=== PATIENT | female | born 1930 | race Caucasian/White ===

== ENCOUNTER 2017-04-11 13:01 | Inpatient (IN) | payer MEDICARE ==
[~2017-04-11] VITALS: Ht 157.5 cm; Wt 63.1 kg
[2017-04-11 14:26] VITALS: BP 93/49; RESP 20
--- NOTE | 2017-04-11 14:44 | NUR ---
direct admit pt admitted from [facility]. pt fell this am due to her muscles "giving out". pt arrived [facility] and transferred self to bedside commode. pt arrived soiled with BM, cleaned by transporters and hospital ELDERLY SITTER. Tele started, waiting on doctors orders. ELDERLY SITTER getting vitals currently. Addendum: 04/11/17 at 1502 by YADIRA AGUILAR RN stool has the distinct odor of C-diff and pt is currently having very dark, loose/watery stool. Sample saved to send to lab
[2017-04-11] MEDS ORDERED: FELO10TA3 PO (15:26)
[2017-04-11] MEDS ORDERED: LISI-567 PO (15:26)
[2017-04-11] MEDS ORDERED: HYDR12.5 PO (15:27)
[2017-04-11] MEDS ORDERED: GABA-500 PO (15:28)
[2017-04-11] MEDS ORDERED: ASPI-973 PO (15:29)
[2017-04-11] MEDS ORDERED: CHOL200047 PO (15:30)
[2017-04-11] MEDS ORDERED: LACT1TAB19 PO (15:31)
[2017-04-11] MEDS ORDERED: PSYL0.4C2 PO (15:31)
[2017-04-11] MEDS ORDERED: FERR159T2 PO (15:32)
[2017-04-11] MEDS ORDERED: ASCO-294 PO (15:33)
[2017-04-11] MEDS ORDERED: FOLI1TAB50 PO (15:34)
[2017-04-11 15:35] VITALS: PULSE 93
[2017-04-11 17:39] VITALS: BP 113/64; PULSE 111; RESP 20; O2SAT 96
--- NOTE | 2017-04-11 17:57 | NUR ---
allergy list pt is not certain what she is allergic to. Daughter in-law is going to go home and check the list, then she plans on calling [facility] back.
[2017-04-11] MEDS ORDERED: Polyethylene Glycol (PEG) 17 Gm Powder PO PRN (18:45)
[2017-04-11] MEDS ORDERED: Alum-Mag Hydrox-Simeth 30 mL Suspension PO PRN (18:45)
[2017-04-11] MEDS ORDERED: Ondansetron 2 mg/mL 2 mL Inj IVPUSH PRN (18:45)
--- NOTE | 2017-04-11 19:38 | DRSVH ---
PROCEDURE: US RENAL SONOGRAM INDICATIONS: juan carlos TECHNIQUE: Real-time scanning was performed of the kidneys and bladder, with image documentation. COMPARISON: None. FINDINGS: Kidneys: Kidneys demonstrate cortical thinning. Right kidney measures 16.3 cm long; left kidney celia sures 13.8 cm long. Right renal cortical thickness is 0.7 cm; left renal cortical thickness is 1.1 c m. Renal cortical echotexture is normal. No hydronephrosis or nephrolithiasis. No suspicious solid mass lesions. Multiple bilateral large right renal cysts, some which demonstrate internal septation s. Bladder: Pre-void bladder volume is 774 mL. Post-void residual is 400 mL. Pre-void images demonstr ate no focal intraluminal masses or stones. There is bladder debris On pre-void images, neither of t he ureteral jets are noted with color Doppler interrogation. (Of note, ureteral jets may not be dete ctable in up to 25% of cases due to insufficient differences in specific gravity between ureteral and bladder urine). Miscellaneous: No free pelvic fluid. IMPRESSION: Multiple mildly complex right renal cysts, some of which demonstrate internal septations. Recommend c ontinued surveillance with renal ultrasound or CT. Given the absence of any relevant prior comparison studies, consider initial workup with CT (in the non-emergent setting). Large postvoid residual. Internal bladder echoes, presumably intraluminal debris. Renal cortical thinning/atrophy Dictated by: Lamin Stack M.D. on 04/11/2017 at 19:32 Approved by: Lamin Stack M.D. on 04/11/2017 at 19:37
[2017-04-11 20:10] VITALS: BP 105/53; PULSE 116; RESP 22; O2SAT 95
[2017-04-11] MEDS: Dextrose 5% 0.9% NaCl 1,000 ML IV SCH (22:05)
[2017-04-11 22:22] VITALS: BP 148/64; PULSE 140; RESP 26
--- NOTE | 2017-04-11 23:08 | NUR ---
Fever/Transfer note Pt developed high fever 39.3, RR26, TELE Sinus tachy HR140. Pt appears chills, flushed face, lung sounds clear, a few wheezes. HR regular, no murmur. Abdomen distended, tympanic,soft, nontender, BT active. Pt had small dark greenish loose stool this pm, GI PCR sent. Trace edema at bilateral LEs. Pt has not voided, bladder scan at 2240 999ml. No lab result and no MD note in the computer. Dr. Pittman paged at [id number], and notified pt above condition. Transfer pt to [facility] per Dr. Pittman order. Report given to receiving KENDRA Thomson Receiving RN notified Pt is on contact enteric precaution to r/o C-diff. There was no information of allergy available this evening until family went home to find out. Tylenol given after allergy information received from family. Addendum: 04/11/17 at 2340 by BRIGITTE MENA RN Pt left [facility] at 2300 and taken down to [facility] by charge nurse Danae Rucker and [place].
[2017-04-11 23:17] LABS: Mean Corpuscular Hemoglobin 27.6 pg (27.0-35.0); Mean Corpuscular Volume 82.9 fL (81-100); Platelet Count 429 bil/L (150-400)
[2017-04-11 23:18] LABS: BASOPHILS % (AUTO) 0.4 % (0-3); EOSINOPHILS % (AUTO) 0.2 % (0-5); MONOCYTES % (AUTO) 3.1 % (4-12); NEUTROPHILS % (AUTO) 91.4 % (40-74)
[2017-04-11 23:20] VITALS: BP 89/41; PULSE 111; RESP 22; O2SAT 93
[2017-04-11] MEDS ORDERED: Piper-Tazo 3.375 Gm/50 mL D5W Minibag Plus - Q8H over 4 hrs IV ONE ×2 (23:45)
[2017-04-11 23:59] LABS: APPEARANCE,URINE TURBID (CLEAR,HAZY); COLOR,URINE YELLOW (YELLOW); OCCULT BLOOD,URINE LARGE (NEGATIVE); PH,URINE 6.5 (5.0-8.0); UROBILINOGEN,URINE NORMAL (NORMAL)
[2017-04-12] VITALS (11 sets, daily range): BP systolic 88–118; BP diastolic 33–80; PULSE 73–116; RESP 16–20; O2SAT 88–92
[2017-04-12] MEDS ORDERED: Piperacillin-Tazo 3.375 Gm Inj 3.375 GM in Dextrose 5% Minibag Plus 50 ML IV SCH (00:30)
--- NOTE | 2017-04-12 01:01 | HP ---
[address] [address] HISTORY AND PHYSICAL PATIENT: LAURA SANABRIA : 1930 MR#: [id number] ADMIT: 04/11/2017 JOB ID: [id number] PRIMARY CARE PROVIDER: Polo Vallecillo MD, [facility] in [place]. CHIEF COMPLAINT: Fell down. HISTORY OF PRESENT ILLNESS: This is an 86-year-old female, who says s he has been feeling okay. Lives by herself in an apartment. 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 Was brought to the ED. The wounds were , but when they did lab work, they noted she had a BUN of 110 and a creatinine of 8.4, sodium of 129 and potassium 6. The ED doctor told me that her creatinine was normal in November, but family, who I was unable to interview today because they are gone, told Dr. White that she has a history of chronic renal failure. She is on lisinopril, and she did start with diarrhea today. The patient says she had no urine output today but she did have urine output yesterday. She has had no urinary tract infections, fever, pain, any other trauma. No chest pain, cough, productive sputum. REVIEW OF SYSTEMS: Complete review of systems obtained. All pertinent positives in HPI above. Rest of review of systems are negative. PAST MEDICAL HISTORY: 1. Hypertension. 2. Ischemic colitis. 3. Fractured femur in the past. 4. Breast cancer. Treated in the past. 5. Diverticulosis. 6. Cholecystectomy. MEDICINES: 1. Amlodipine 10 daily. 2. Lisinopril 20 daily. 3. HCTZ 25 daily. 4. Aspirin 81 daily. 5. Gabapentin. SOCIAL HISTORY: The patient lives alone in her own apartment. She has never smoked. Occasional alcohol. Allergy information is not available. Family is bringing that in. FAMILY HISTORY: The patient does not know what her parents from. PHYSICAL EXAMINATION: Blood pressure 113/64, heart rate 111, afebrile, O2 sat is 96% on room air. Skin is warm and dry. Eyes: PERRLA. EOMs intact. Mouth shows slightly poor hydration. No JVD. Lungs: A few crackles. Cardiac exam has a questionable systolic murmur. Abdomen is soft, nonacute, benign. Extremities showed no significant edema. Cranial nerves 2-12 are intact. No gross motor or sensory defects noted. ANALYSIS AND PLAN: 1. Acute renal failure present on admission. Active. Etiology is unclear. Dehydration. Possibly related to the diarrhea is a possibility. At this time, Dr. White has seen the patient in consultation. Ultrasound ordered. UA ordered. Kayexalate given this morning. Renal ultrasound ordered. We are going to hydrate the patient overnight, hold her meds and re-evaluate in the morning. 2. Hypertension. The patient's blood pressure is low. We will be holding her felodipine and lisinopril, hydrochlorothiazide and aspirin. 3. Diarrhea. PCR study. No antidiarrheals until C. diff ruled out. Isolation. 4. Code status: FULL CODE. 5. Disposition: The patient's primary care provider is Dr. Vallecillo, [facility]. She lives alone in an apartment.
--- NOTE | 2017-04-12 01:09 | CONS ---
[address] [address] CONSULTATION REPORT PATIENT: LAURA SANABRIA : 1930 MR#: [id number] ADMIT: 04/11/2017 JOB ID: [id number] CORRECTED REPORT: RENAL CONSULTATION: DATE OF SERVICE: 04/11/2017 HISTORY: The patient is a very pleasant, 86-year-old, white female, who was transferred from [facility] for acute kidney injury and hyperkalemia. Renal consultation is being sought for further evaluation of her renal problem. Much of the history has been obtained from the patient and from her family members. Apparently, there is some history of some type of chronic kidney disease. However, she has not seen a publication distributor in the past. I was told by the consulting physicians that her renal function is normally considerably better than it is today. She apparently has a history of some frequent urinary tract infections and, from what her daughter said, gets 2-3 of those per year. There is no history of any prior hematuria, proteinuria, renal lithiasis, diabetes, frequent use of nonsteroidal anti-inflammatories or any [id number] or herbal medications. She states that approximately 1/2 to 2 weeks ago she had a DTaP immunization. Following that, she states that she has been feeling quite poorly with progressive weakness, nausea, vomiting, general malaise, and marked decrease in her oral intake. She has not had any recent antibiotics, nor has she taken any other medicines other than her normal prescribed medications. She denies any fever, chills, nasal congestion, cough, wheezing, new arthralgias or myalgias, difficulty with urination, or hematuria. She denies any skin rashes. She does state that today she had a fairly abrupt onset of multiple loose stools. She does have a history of diverticular disease but denies any abdominal pain today. PAST MEDICAL HISTORY: Is significant for hypertension, which is currently fairly well controlled, breast cancer, which was treated by a lumpectomy and follow up radiation about five years ago, hyperlipidemia, and diverticular disease. She denies a history of any prior stroke, seizure, asthma, emphysema, tuberculosis, myocardial infarction, congestive heart failure, rheumatic fever, other malignancies, or thyroid illness. PAST SURGICAL HISTORY: Is significant for hysterectomy, intertrochanteric fracture of the right hip, pelvic fracture, and a cholecystectomy. ALLERGIES: She is not allergic to any food or any medication. SOCIAL HISTORY: She has a remote history of tobacco use, and drinks a glass a wine occasionally. She is normally quite active in her numerous activities of daily living which she normally performs without significant problems or restriction. REVIEW OF SYSTEMS: Is detailed above. Otherwise she denies any headache, visual changes, chest pain or shortness of breath. PHYSICAL EXAMINATION: Revealed a pale, well-developed, 86-year-old, white female, who was alert and oriented x3, in no distress at time of my evaluation. Her heart rate was 86. Blood pressure was 100/58. HEENT examination is remarkable for pale sclerae, mild bitemporal wasting, and dry mucous membranes. Sclerae and cornea, along with the pupils and extraocular muscles were within normal limits. Neck is supple without adenopathy, thyromegaly or jugular venous distention. Lungs were clear to auscultation. Heart is regular and rhythmical with a soft systolic murmur. Abdomen is soft and distended. There were diminished bowel sounds noted. There was diffuse tympany throughout her abdomen. There was no tenderness, rebound, guarding, masses or hepatosplenomegaly. Extremities did not show any evidence of any clubbing, cyanosis, or edema. Half and half nails were noted. Skin turgor was diminished and there is no evidence of any rashes. Neurological exam was remarkable for resting and intention tremor, which is chronic, and asterixis. LABORATORY DATA: There is no followup lab since her lab earlier today. IMPRESSION: 1. Dehydration. 2. Acute kidney injury secondary to this. 3. Hyperkalemia. 4. Metabolic acidosis. 5. Hypertension with hypertensive heart disease and hypertensive nephrosclerosis. 6. Abdominal distention. RECOMMENDATION: I would like to get a renal ultrasound on her. I would also like to consider getting a abdominal CT scan with oral contrast only. I would also like to get a stool for C. difficile toxin, and I would like to start her on D5 normal saline at 100 mL/h. I also would like to review her old records from her family physician to have an idea of what her baseline creatinine is. Once again, I would like to thank you for allowing me to participate in the care of this most pleasant interesting patient. I will be following her closely with you. Corrected by GS 04/23/17 at 1:06pm DOS.
[2017-04-12] MEDS: Vancomycin 125 mg Oral Capsule PO SCH ×4 (01:25→17:53)
[2017-04-12 03:08] LABS: BASOPHILS % (AUTO) 0.3 % (0-3); EOSINOPHILS % (AUTO) 0.1 % (0-5); MONOCYTES % (AUTO) 4.8 % (4-12); Mean Corpuscular Hemoglobin 27.5 pg (27.0-35.0); Mean Corpuscular Volume 83.4 fL (81-100); NEUTROPHILS % (AUTO) 91.5 % (40-74); Platelet Count 382 bil/L (150-400)
[2017-04-12 03:32] LABS: Unsaturated Iron Binding 116.9 ug/dL
--- NOTE | 2017-04-12 06:19 | NUR ---
NOC Received pt from [facility] around 2300. PT febrile at the time, HR tachy. ON 2.5L NC. Hypotensive. PT was difficult to arouse and confused when attempting to review info with the pt. Carlisle placed for bladder scan <999. Urine was milky with a green tint to it. UA positive. PT received a 500ml NS bolus. Pressures are now in upper 90's to low 100 systolic. Temp resolved. Lungs are diminished t/o as pt does not follow commands to take deep breaths. PT had 1 BM that was dark green and liquid. THere was stool inside of her vagina, but does not appear to be a fistula. Pt reports that she has a pessory in place. This RN did not remove. Hopefully when pt is more alert today she will be able to remove on her own. There is a bruise on her L elbow from reported fall about a week ago per pt. Stool sample sent for PCR. Pt currently on contact precautions. Labs a little improved today aside from creatinine and bum which are both critically high. Nephrology is consulting. Will CTM,
[2017-04-12] MEDS: Dextrose 5% 0.9% NaCl 1,000 ML IV SCH (09:10)
--- NOTE | 2017-04-12 11:29 | PCM.PNNEPH ---
Subjective Date of Service April 12, 2017 Subjective Patient states that she feels a bit better but continues to have diarrhea. Her appetite is good and she denies any headache, chest pain, or shortness of breath. She does have some rare nausea but no vomiting. Intake and output have not been well Yesterday. Her systolic blood pressures have ranged between 90-1/2 in the low 110s. This morning her hemoglobin is 9.8, sodium 133, potassium 4.6, chloride of 96, bicarbonate 15, BUN and creatinine were 107 and 8.7 respectively. Her uric acid level is 11.7 with a calcium of 7.2. Patient is 13% and pneumonia is 65. Albumin level was 2.3. Toxin assay was positive for C. difficile toxin. Her renal ultrasound was reviewed and she has some moderate asymmetry of her kidneys with the right kidney being 16.3 cm and the left kidney being 13.8. There were multiple simple cysts noted and thinning of the cortex was also noted. There were no masses or obstruction noted however she did have considerable debris in her bladder and an increased postvoid residual was noted. Exam Vital Signs Vital Sign - Last Date Time Temp Pulse Resp B/P Pulse Ox O2 Delivery O2 Flow Rate FiO2 04/12/17 09:49 73 04/12/17 09:18 36.8 18 92/40 92 Nasal Cannula 2.00 Intake and Output 04/11/17 04/11/17 04/12/17 Cumulative From/Thru 15:00 23:00 07:00 04/11/17 17:35 - 04/12/17 06:19 Intake Total 1053 ml 1053 ml Output Total 750 ml 750 ml Balance 303 ml 303 ml Intake Oral 200 ml 200 ml IV Total 853 ml 853 ml Output Urine Total 750 ml 750 ml # Bowel Movements 3 3 Exam HEENT examination is remarkable once again for pale sclera, bitemporal wasting, and some dry mucous membranes. Neck is supple without adenopathy, thyromegaly, or jugular venous distention. Throat clear to auscultation. Heart is regular and rhythmical with a soft systolic murmur. Abdomen is soft with diminished bowel sounds and once again diffuse tympany is noted. There is some mild nonfocal tenderness mainly in the epigastric and left upper quadrant area. This was nonradiating and there was no guarding or rebound noted. There was no evidence of any hepatosplenomegaly noted. Extremities did not show any evidence of any clubbing, cyanosis, or edema.Moshe and Half nails were noted and skin turgor is diminished. There were no rashes noted. Lab and Diagnostics Result Diagram: 04/12/1725404/12/17254 Plan Impression Impression #1 acute kidney injury secondary to dehydration from C. difficile colitis #2 dehydration #3 anion gap and non-anion gap metabolic acidosis #3 abdominal distention number for hyperuricemia #5 for tension with hypertensive heart disease and hypertensive nephrosclerosis. Recommendations #1 I would like to change her maintenance IV to D5 and half- normal saline with 1 amp of sodium bicarbonate 21 at 125 mL . Slight discharge her on allopurinol 100 mg all once a day and I would strongly recommend getting a CT scan of her abdomen. This can be done with oral contrast only and IV contrast would not be needed. Papo White DO April 12, 2017 11:29
[2017-04-12] MEDS ORDERED: Lactulose 10 Gm/15 mL 473 mL Solution PO SCH (11:45)
--- NOTE | 2017-04-12 11:45 | PCM.PNMED ---
Subjective Date of Service April 12, 2017 Subjective Caitie Monet is an 86 year old woman with past medical history significant for hypertension, breast cancer in remission, hyperlipidemia, and diverticular disease who presented to [facility] from [facility] due to hyperkalemia and acute kidney injury. The patient is currently under treatment for C. Difficile colitis, acute kidney injury and a UTI as well as possible hepatic encephalopathy. Hospital day #2 Overnight: The patient had an elevated temperature, episode of hypotension that was fluid responsive, and had a significant amount of urinary retention that was treated with catheterization. Patient had 3 recorded bowel movements overnight. Today: The patient is forgetful and repeats questions during interview. She denies any abdominal pain, nausea, vomiting, further bowel movements. Denies any bowel movement this morning. The remainder review of systems is negative except as noted above. Exam Vital Signs Vital Sign - Last Date Time Temp Pulse Resp B/P Pulse Ox O2 Delivery O2 Flow Rate FiO2 04/12/17 09:49 73 04/12/17 09:18 36.8 18 92/40 92 Nasal Cannula 2.00 Intake and Output 04/11/17 04/11/17 04/12/17 Cumulative From/Thru 15:00 23:00 07:00 04/11/17 17:35 - 04/12/17 06:19 Intake Total 1053 ml 1053 ml Output Total 750 ml 750 ml Balance 303 ml 303 ml Intake Oral 200 ml 200 ml IV Total 853 ml 853 ml Output Urine Total 750 ml 750 ml # Bowel Movements 3 3 Exam General: No acute distress, thin elderly female sitting up in hospital. Forgetful and seems confused. HEENT: Normocephalic, atraumatic. External ears without defect. Pupils equal, round, and reactive to light and accommodation. Anicteric sclerae, moist conjunctivae, and no lid lag. Oropharynx free of erythema and cobble stoning with moist mucosa. Neck: Supple with full range of motion. No jugular venous distension. No lymphadenopathy or thyromegaly. Cardiovascular: Regular rate and rhythm with soft systolic murmur. Pulmonary: Clear to auscultation bilaterally with no crackles, wheezes, or rhonchi. Normal respiratory effort with no use of accessory muscles. Abdomen: Soft, mildly distended. No hepatosplenomegaly or masses appreciated. No tenderness to palpation. Hypoactive bowel sounds Extremities: No clubbing, cyanosis, edema, or lymphadenopathy appreciated. Half -and-half nails noted. Skin: Normal temperature, turgor, and texture; no rash, ulcers, or subcutaneous nodules appreciated. Neurological: Cranial nerves grossly intact. Normal muscle strength, tone, and bulk. Asterixis noted. Psychiatric: Normal mood and affect. Alert and oriented to person, place, and time. IVs and Medications Medications Reviewed: Medications were reviewed in detail Lab and Diagnostics Result Diagram: 04/12/17 0255 04/12/17254 X-Rays, CTs and MRIs US RENAL SONOGRAM IMPRESSION: Multiple mildly complex right renal cysts, some of which demonstrate internal septations. Recommend continued surveillance with renal ultrasound or CT. Given the absence of any relevant prior comparison studies, consider initial workup with CT (in the non-emergent setting). Large postvoid residual. Internal bladder echoes, presumably intraluminal debris. Renal cortical thinning/atrophy Dictated by: Lamin Stack M.D. on 04/11/2017 at 19:32 Assessment & Plan Caitie Monet is an 86 year old woman with past medical history significant for hypertension, breast cancer in remission, hyperlipidemia, and diverticular disease who presented to [facility] from [facility] due to hyperkalemia and acute kidney injury. The patient is currently under treatment for C. Difficile colitis, acute kidney injury and a UTI as well as possible hepatic encephalopathy. Hospital day #2 1. Acute injury kidney injury secondary to dehydration secondary to C. difficile colitis, present on admission, active -Based on the patient's renal ultrasound she does seem to have some underlying CKD however does not appear that her current renal function is at baseline -Nephrology consulted, appreciate recommendations and expertise. We will follow. -Continue D5 normal saline at 100 mL per hour as per nephrology. 2. C. difficile colitis, present on admission, active. -Patient was initiated on by mouth vancomycin by the leather goods ii assembler. We will continue. -This patient poses a curious conundrum as routinely the goal of bowel movements would be less than 6 to state that the patient's C. difficile colitis is under control. However, this patient also appears to be in hepatic encephalopathy and thus we must maintain her bowel movements to at least 3 per day with end goal of improved mentation. Our goal will be 3-4 bowel movements per day. -Consider gastric urology consultation if patient does not improve. Especially the setting of her asterixis and hepatic encephalopathy. 3. Urinary tract infection, present on admission, active -Patient noted to have a very dirty urine and has bladder retention as well -May be due to cross-contamination from diarrhea with stasis -Started on Zosyn by the leather goods ii assembler, will continue and deescalate as cultures return. 4. 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 He did not have any imaging of the abdomen or the liver is available. -Ammonia is elevated this morning and she does appear encephalopathic -We will obtain CT of abdomen and pelvis with by mouth contrast. -We will initiate low-dose lactulose -We will continue to monitor mentation 5. Normocytic normochromic anemia, present on admission, stable -Likely secondary to chronic kidney disease -Continue to monitor. Will defer to nephrology regarding further intervention. 6. Hyperkalemia, present on admission, resolved. 7. Hypertension, chronic -Hold blood pressure medications at this time Disposition: The patient will likely be in the hospital for 2-3 more days as she is evaluated and treated for the above problems. VTE Mechanical Devices: Venous Foot Pump Resuscitation Status: CPR: Attempt Resuscitation Time spent 35 min Attending Statement Patient was seen and examined by me today. I confirmed pertinent physical exam findings and agree with physical exam as documented by resident. I agree with overall assessment and plan of care as documented. Labs, radiology tests reviewed. Plan of care, medication side effects, home medication, diagnostic procedures and available alternatives were discussed and reviewed with the patient. All questions answered. Patient verbalized understanding, approved and agreed to plan of care. Carmelina Lazcano DO April 12, 2017 11:05 Angel Posada MD April 12, 2017 17:37
--- NOTE | 2017-04-12 13:40 | DRSVH ---
PROCEDURE: CT ABDOMEN AND PELVIS WITHOUT CONTRAST ([id number]) INDICATIONS: ?cirrhosis, c diff. TECHNIQUE: After the administration of oral contrast, 5 mm thick sections acquired from the diaphragms to the sy mphysis. 5 mm coronal and sagittal reformats were performed. For radiation dose reduction, the foll owing was used: automated exposure control, adjustment of mA and/or kV according to patient size. COMPARISON: [facility], US, US RENAL, 04/11/2017, 18:08. FINDINGS: Image quality: There is metallic streak artifact limiting evaluation. ABDOMEN: Lung bases: There are small bilateral pleural effusions with consolidation in the lower lobes, left g reater than right. Heart size is normal. There is prominent coronary arterial vascular calcificatio n. There is an and understands the order of her LEI and is T. he is a A small hiatal hernia is prese nt. There is mild concentric wall thickening within the visualized distal esophagus. Solid organs: There is a small cyst within the inferior right hepatic lobe measuring 8 mm. The splee n is normal in size. Gallbladder appears surgically absent. The pancreas is mildly atrophic in size without pancreatic duct dilatation or discrete lesions. No adrenal nodules. There is severe dilatation of the right renal collecting system with a transition at the ureteropelvi c junction. The right ureter is normal in caliber. Left kidney demonstrates no hydronephrosis. The re is nonspecific perinephric stranding demonstrated bilaterally. Peritoneum and bowel: Small bowel loops demonstrate normal wall thickness and caliber. There is colo kei diverticulosis without acute diverticulitis. Mild segmental wall thickening is demonstrated in t he sigmoid colon suggesting a mild nonspecific colitis. No free fluid or air. Nodes and vessels: No retroperitoneal or mesenteric adenopathy by size criteria. Aorta and inferior vena cava are normal in size. Miscellaneous: No ventral hernias. PELVIS: Genitourinary: There is a Altamirano catheter within a decompressed urinary bladder. There is suggestion of concentric bladder wall thickening. Miscellaneous: No inguinal hernias or adenopathy. Bones: No suspicious bony lesions. There is osteopenia. No vertebral body compression fractures. IMPRESSION: 1. Severe right hydronephrosis without hydroureter suggesting a UPJ obstruction. No radiopaque ston es identified. 2. Concentric bladder wall thickening of a distended urinary bladder compatible with cystitis. Bull mmend correlation with urinalysis. 3. Diverticulosis without acute diverticulitis. 4. Small bilateral pleural effusions with bibasilar consolidation suspicious for pneumonia. The fin dings also raise the possibility of aspiration. Dictated by: Andrade Livingston M.D. on 04/12/2017 at 13:22 Approved by: Andrade Livingston M.D. on 04/12/2017 at 13:33
--- NOTE | 2017-04-12 13:41 | NUR ---
Social Work: Initial Assessment Data & Assessment: See Initial Assessment. EMR reviewed. Patient is a 86 y/o female that admitted on 04/11/17 for Acute Renal Failure per H&P. SW met with patient and patient's family, Rodriguez Monet [phone] and Hemant Monet [phone], at bedside to complete initial assessment, SW role reviewed and discharge planning discussed. Family provided a copy of patient's Advance Directive/DPOA. Patient does not have a re-admit score. Patient is the spouse of a and has no LTC benefits. Patient's PCP is Dr. Ángel Vallecillo. Patient's insurance is Medicare. Patient lives home alone and uses a cane at baseline. Patient also has a walker if needed. Patient's family is looking into Assisted Living Facilities for patient to go to when discharged. Patient does drive. Patient has had HH, but can not recall the name. Patient has been to [facility]. SW will continue to follow patient for discharge planning needs. SW provided contact information on [employer] and also provided patient and family with business cards. Plan: Patient will likely discharge to a ASSIST[facility]. SW will continue to follow and assist patient and patient's family throughout stay. Dea Jackson. NHAN GARCIA Addendum: 04/12/17 at 1354 by DEA JACKSON Amended: Links added.
[2017-04-12] MEDS: Piperacillin-Tazo 3.375 Gm Inj 3.375 GM in Dextrose 5% Minibag Plus 50 ML IV SCH (15:27)
[2017-04-12] MEDS: Sodium Bicarb 8.4% Inj 75 MEQ in 0.45% Sodium Chloride 1,000 ML IV SCH ×2 (15:27→23:52)
[2017-04-12] MEDS: Heparin 5,000 Unit/mL Inj SUBQ SCH (17:53)
--- NOTE | 2017-04-12 19:14 | NUR ---
Urine/BM Altamirano catheter is patent but draining low output. 200cc for entire shift. MD notified. Urine is white and cloudy, almost pale green in color. Pt had multiple incontinent BMs. Somewhat formed.
[2017-04-12] MEDS ORDERED: 0.9% Sodium Chloride 500 ML IV ONE (23:35)
[2017-04-13] VITALS (8 sets, daily range): BP systolic 92–120; BP diastolic 46–60; PULSE 95–124; RESP 18–24; O2SAT 90–95
[2017-04-13] MEDS: Vancomycin 125 mg Oral Capsule PO SCH ×4 (00:17→18:23)
[2017-04-13] MEDS: Heparin 5,000 Unit/mL Inj SUBQ SCH ×3 (00:17→17:41)
[2017-04-13] MEDS: Piperacillin-Tazo 3.375 Gm Inj 3.375 GM in Dextrose 5% Minibag Plus 50 ML IV SCH ×2 (00:18→14:18)
--- NOTE | 2017-04-13 01:42 | NUR ---
temp/BP Pt temp at beginning of shift was 38.3 and pt was given Tylenol 650 mg PO. Temp came down to 36.8 on reassessment. Pt on tele, SR 90s. BP dropped to 88/42 and MD borja, orders received to give 500 ml NS bolus. On reassessment, BP slightly up at 92/46. Pt alert and oriented x3, LUJAN. Placed on 3L via NC to keep O2 sats above 92%.
[2017-04-13 03:20] LABS: INR 1.11 ratio
--- NOTE | 2017-04-13 03:45 | NUR ---
Urine output Pt had only 200 ml of urine output from heredia this shift. Pt total IV fluid intake has been 1803ml. made aware, no new orders received. Addendum: 04/13/17 at 0446 by VALERIE NAJERA RN critical values Pt with critical Calcium of 6.7 this morning, paged about this value since it is new. Creatinine and BUN remain critical at 9.07 and 101.
[2017-04-13 07:38] LABS: BASOPHILS % (AUTO) 0.5 % (0-3); MONOCYTES % (AUTO) 4.7 % (4-12); Mean Corpuscular Hemoglobin 27.5 pg (27.0-35.0); Mean Corpuscular Volume 83.6 fL (81-100); NEUTROPHILS % (AUTO) 85.3 % (40-74); Platelet Count 356 bil/L (150-400)
[2017-04-13] MEDS: Sodium Bicarb 8.4% Inj 75 MEQ in 0.45% Sodium Chloride 1,000 ML IV SCH ×2 (08:44→17:41)
[2017-04-13] MEDS: Lactulose 20 Gm/30 mL 30 mL Syrup PO SCH (08:44)
--- NOTE | 2017-04-13 11:38 | PCM.PNNEPH ---
Subjective Date of Service April 13, [address] abd/pelvis without contrast done yesterday showed severe right hydronephrosis without hydroureter suggesting a UPJ obstruction and no radiopaque stones identified. She is slight better, remains weak. Appetite is fair. Kidney function has not improved. Exam Vital Signs Vital Sign - Last Date Time Temp Pulse Resp B/P Pulse Ox O2 Delivery O2 Flow Rate FiO2 04/13/17 10:26 101 04/13/17 08:35 37.2 18 106/52 90 Nasal Cannula 3.00 Intake and Output 04/12/17 04/12/17 04/13/17 Cumulative From/Thru 15:00 23:00 07:00 04/11/17 17:35 - 04/13/17 06:02 Intake Total 830 ml 2203 ml 4086 ml Output Total 200 ml 200 ml 1150 ml Balance 630 ml 2003 ml 2936 ml Intake Oral 500 ml 400 ml 1100 ml IV Total 330 ml 1803 ml 2986 ml Output Urine Total 200 ml 200 ml 1150 ml # Bowel Movements 3 6 Exam General: Frail appearance, sleeping comfortably, in NAD. HEENT: Normocephalic, atraumatic. Dry MM, no pallor, anicteric sclerae. Neck: Supple. No jugular venous distension. No lymphadenopathy or thyromegaly. Cardiovascular: Regular rate and rhythm with soft systolic murmur. Pulmonary: Clear to auscultation bilaterally with no crackles, wheezes, or rhonchi. Normal respiratory effort with no use of accessory muscles. Abdomen: Soft, mildly distended. No hepatosplenomegaly or masses appreciated. No tenderness to palpation. Active BS. Extremities: No clubbing, cyanosis, edema. Lab and Diagnostics Result Diagram: 04/13/17 0225 04/13/17 022 X-Rays, CTs and MRIs US RENAL SONOGRAM IMPRESSION: Multiple mildly complex right renal cysts, some of which demonstrate internal septations. Recommend continued surveillance with renal ultrasound or CT. Given the absence of any relevant prior comparison studies, consider initial workup with CT (in the non-emergent setting). Large postvoid residual. Internal bladder echoes, presumably intraluminal debris. Renal cortical thinning/atrophy Dictated by: Lamin Stack M.D. on 04/11/2017 at 19:32 Plan Impression 1. VICTOR MANUEL, no h/o CKD. - ischemic ATN with component of prerenal. - Severe right hydronephrosis noted per CT abd. 2. Hyponatremia in the setting of renal insufficiency. 3. Pyuria. 4. C.diff colitis. 5. Essential HTN. 6. Normocytic anemia. Plan: Repeat UA, urine eos. Consult urology. Repeat BMP. Check iCa and ferritin. Monica Marquez MD April 13, 2017 11:38
[2017-04-13] MEDS ORDERED: Calcium GLUCO 10% (mEq) Inj 9.3 MEQ in Dextrose 5% 100 ML IV ONE (13:15)
--- NOTE | 2017-04-13 13:33 | PCM.PNMED ---
Subjective Date of Service April 13, 2017 Subjective Caitie Monet is an 86 year old woman with past medical history significant for hypertension, breast cancer in remission, hyperlipidemia, and diverticular disease who presented to [facility] from [facility] due to hyperkalemia and acute kidney injury. The patient is currently under treatment for C. Difficile colitis, acute kidney injury and a UTI as well as possible toxic encephalopathy and right hydronephrosis. Hospital day #3 Overnight: No acute events. Today: The patient is forgetful and repeats questions during interview. She denies any abdominal pain, nausea, vomiting. She stated that she has had 3 bowel movements this morning. She also notes some back pain which is chronic for her. The remainder review of systems is negative except as noted above. Exam Vital Signs Vital Sign - Last Date Time Temp Pulse Resp B/P Pulse Ox O2 Delivery O2 Flow Rate FiO2 04/13/17 12:01 37.2 105 18 106/56 91 Nasal Cannula 4.00 Intake and Output 04/12/17 04/12/17 04/13/17 Cumulative From/Thru 14:59 22:59 06:59 04/11/17 17:35 - 04/13/17 06:02 Intake Total 830 ml 2203 ml 4086 ml Output Total 200 ml 200 ml 1150 ml Balance 630 ml 2003 ml 2936 ml Intake Oral 500 ml 400 ml 1100 ml IV Total 330 ml 1803 ml 2986 ml Output Urine Total 200 ml 200 ml 1150 ml # Bowel Movements 3 6 Exam General: No acute distress, thin elderly female sitting up in hospital. Forgetful and seems confused. HEENT: Normocephalic, atraumatic. External ears without defect. Pupils equal, round, and reactive to light and accommodation. Anicteric sclerae, moist conjunctivae, and no lid lag. Oropharynx free of erythema and cobble stoning with moist mucosa. Neck: Supple with full range of motion. No jugular venous distension. No lymphadenopathy or thyromegaly. Cardiovascular: Regular rate and rhythm with soft systolic murmur. Pulmonary: Clear to auscultation bilaterally with no crackles, wheezes, or rhonchi. Normal respiratory effort with no use of accessory muscles. Abdomen: Soft, mildly distended. No hepatosplenomegaly or masses appreciated. No tenderness to palpation. Hyperactive bowel sounds Extremities: No clubbing, cyanosis, edema, or lymphadenopathy appreciated. Half -and-half nails noted. Skin: Normal temperature, turgor, and texture; no rash, ulcers, or subcutaneous nodules appreciated. Neurological: Cranial nerves grossly intact. Normal muscle strength, tone, and bulk. Asterixis noted, unchanged from yesterday. Psychiatric: Normal mood and affect. Alert and oriented to person, place, and time. IVs and Medications Medications Reviewed: Medications were reviewed in detail Lab and Diagnostics Result Diagram: 04/13/1722404/13/17224 X-Rays, CTs and MRIs US RENAL SONOGRAM IMPRESSION: Multiple mildly complex right renal cysts, some of which demonstrate internal septations. Recommend continued surveillance with renal ultrasound or CT. Given the absence of any relevant prior comparison studies, consider initial workup with CT (in the non-emergent setting). Large postvoid residual. Internal bladder echoes, presumably intraluminal debris. Renal cortical thinning/atrophy Dictated by: Lamin Stack M.D. on 04/11/2017 at 19:32 CT ABDOMEN AND PELVIS WITHOUT CONTRAST IMPRESSION: 1. Severe right hydronephrosis without hydroureter suggesting a UPJ obstruction. No radiopaque stones identified. 2. Concentric bladder wall thickening of a distended urinary bladder compatible with cystitis. Recommend correlation with urinalysis. 3. Diverticulosis without acute diverticulitis. 4. Small bilateral pleural effusions with bibasilar consolidation suspicious for pneumonia. The findings also raise the possibility of aspiration. Dictated by: Andrade Livingston M.D. on 04/12/2017 at 13:22 Assessment & Plan Caitie Monet is an 86 year old woman with past medical history significant for hypertension, breast cancer in remission, hyperlipidemia, and diverticular disease who presented to [facility] from [facility] due to hyperkalemia and acute kidney injury. The patient is currently under treatment for C. Difficile colitis, acute kidney injury and a UTI as well as possible toxic encephalopathy and right hydronephrosis. Hospital day #3 1. Acute injury kidney injury secondary to right UPJ obstruction and dehydration secondary to C. difficile colitis, present on admission, active -Based on the patient's renal ultrasound she does seem to have some underlying CKD -Nephrology consulted, appreciate recommendations and expertise. We will follow. -Continue D5 normal saline at 100 mL per hour as per nephrology. -Urology consulted for right hydronephrosis and probable UPJ obstruction. 2. C. difficile colitis, present on admission, active. -by mouth vancomycin by the security system installer. Antibiotic day 2. -CT showing reticulitis as well. -Infectious disease consulted. We will follow recommendations. 3. Urinary tract infection, present on admission, active -Patient noted to have a very dirty urine and has bladder retention as well -May be due to cross-contamination from diarrhea with stasis -Zosyn, about day 2. Infectious disease consulted. 4. Possible toxic encephalopathy with asterixis, present on admission, active -May be due to uremia as well. -No history of cirrhosis noted per patient's report. CT of abdomen does not reveal a cirrhotic appearing liver. -Ammonia is elevated. Per family the patient is mildly more altered than her baseline. -Continue low-dose lactulose -We will continue to monitor mentation 5. Normocytic normochromic anemia, present on admission, stable -Likely secondary to chronic kidney disease -Continue to monitor. Will defer to nephrology regarding further intervention. 6. Hyperkalemia, present on admission, resolved. 7. Hypertension, chronic -Hold blood pressure medications at this time 8. Hyponatremia - stable 9. Anemia - probably of chronic disease - no signs of active bleeding present - monitor Disposition: The patient will likely be in the hospital for 2-3 more days as she is evaluated and treated for the above problems. VTE Mechanical Devices: Venous Foot Pump Resuscitation Status: CPR: Attempt Resuscitation Time spent 35 min Attending Statement Patient was seen and examined by me today. I confirmed pertinent physical exam findings and agree with physical exam as documented. I agree with overall assessment and plan of care as documented. Labs, radiology tests reviewed. Plan of care, medication side effects, home medication, diagnostic procedures and available alternatives were discussed and reviewed with the patient. All questions answered. Patient verbalized understanding, approved and agreed to plan of care Carmelina Lazcano DO April 13, 2017 13:23 Angel Posada MD April 13, 2017 15:07
[2017-04-13] MEDS ORDERED: CALCIUM GLUCO IV ONE (14:05)
[2017-04-13] MEDS ORDERED: SODIUM CHLORIDE 0.9% IV ONE (14:05)
--- NOTE | 2017-04-13 19:44 | NUR ---
General status Pt A&O X3. Answers all questions appropriately. Does appear confused and forgetful at times. Drousy and difficult to hold attention but easily arousable. HR elevated at times in the 90s-110s. BP 106/56. On 2L NC. Had multiple loose stools today incontinent. Altamirano patent, draining yellow cloudy urine. Pt does not feel when she is having them. C/O some lower back pain, states is a chronic issue. Poor bed mobility, only able to make slight changes without assistance. C/O feeling very fatigued all day. Family at the bedside for most of day.
--- NOTE | 2017-04-13 22:23 | CONS ---
[address] [address] CONSULTATION REPORT PATIENT: LAURA SANABRIA : 1930 MR#: [id number] ADMIT: 04/11/2017 JOB ID: [id number] DATE OF SERVICE: 04/13/2017 ADMITTING DIAGNOSES: 1. Acute renal failure. 2. Ground level fall with head contusion. 3. History of recurrent urinary tract infection. HISTORY: The patient is an 86-year-old, white female, previously living independently in an apartment who over the last several weeks does admit to advancing malaise and fatigue. At approximately 9 a.m. on the morning of April 11, 2017, she went to retrieve her newspaper as usual and fell to ground. She does not recall how she may have hit the back of her head. She called 911 because she could not get up and was brought to [facility]. In the field band and in the ED, she had systolic pressure in the 80s and was a bit obtunded. Laboratories were significant for white blood cell count of 14.5 and a creatinine of 8.4 and BUN of 120. She also had low sodium and chloride. She was then transferred to [facility] for management of her acute illness. The repeat white blood cell count at 2300 hours April 11, 2017 had dropped to 11.3. A stool culture was positive for C. difficile. Admission urinalysis was consistent with infection as characterized by many bacteria, large leukocyte esterase, and nitrite positivity. Unfortunately, no culture was performed. A CT of abdomen and pelvis April 12, 2017 is reviewed and is consistent with a high-grade chronic right UPJ obstruction with very little remaining renal parenchyma. She has a history of breast cancer status post lumpectomy at least five years ago. She has been discharged from on oncologic oversight. Allergies, past medical, surgical, social, family and review of systems otherwise are reviewed and I have no discrepancies or differences in that data. PHYSICAL EXAMINATION: She is resting comfortably in bed, awake and alert but not particularly oriented. Family members are in attendance. Exam not repeated with exception of visualization of urine per Altamirano catheter is thick and grossly cloudy consistent with florid infection. IMPRESSION: 1. High-grade chronic right ureteropelvic junction obstruction. 2. Urinary tract infection/urosepsis. 3. History of recurrent urinary tract infection. 4. 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 PLAN: 1. Culture urine. 2. Recommend initiation of Osphena 60 mg p.o. daily. 3. Probiotic's. Florigen is an excellent choice 20 billion units daily. 4. Obviously treat urine cultures based upon the sensitivities for at least a seven day course followed by 60 nights at h.s. prophylaxis. I would advise currently against right ureteral stenting as this kidney is extremely poorly or nonfunctioning currently and, in my opinion, is not a contributing factor to her acute renal failure presentation. It certainly is partially etiologic in her underlying history of moderate chronic kidney disease. Also, the right renal unit may currently not be infected and may certainly not be the source of infection and instrumenting her and positioning the stent will often create a refluxing system. In that scenario, the previously noninfected, nonfunctioning right renal unit now may become infected chronically so and result in subsequent need for nephrectomy or chronic drainage.
--- NOTE | 2017-04-13 22:38 | CONS ---
[address] [address] CONSULTATION REPORT PATIENT: LAURA SANABRIA : 1930 MR#: [id number] ADMIT: 04/11/2017 JOB ID: [id number] DATE OF SERVICE: 04/13/[address] Lazcano for this timely consult. REASON FOR CONSULTATION: C. difficile colitis with probable complicated urinary tract infection in an elderly woman with acute renal failure. HISTORY OF PRESENT ILLNESS: The patient is an 86-year-old Citizen Of The [place] emigrate who grew up in [place] during the [employer] occupation and came here as a young woman. She has multiple medical problems including history of ischemic colitis, a prior hip fracture, history of breast cancer thought to be in remission, and frequent urinary tract infections. The last treated UTI was about a year ago though and, as far as we know, that is the last time she received antibiotics. 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 This led her to be evaluated at the [facility] where she had some basic lab work done which disclosed that she had acute renal failure with a creatinine approaching 9. Because of this, she was transferred here. There was no particular suspicion about infection while she was at the [facility] and, in fact, no cultures of any kind were done at that time prior to her transfer for further evaluation of her renal failure. Upon arrival here, it was noted that she had diarrhea and, for that reason, a stool C. difficile PCR was checked which was positive. Though the patient denies having much in the way of abdominal symptomatology prior to her fall, her son who is with her in the room, reports that for several days she had been complaining of abdominal cramps and vomiting. It was unclear if she had had any fever, chills or diarrhea prior to the fall on the , but this cannot be excluded and the patient really does not remember. The patient denies ongoing dysuria, urgency or frequency and states she is not having symptoms of urinary tract infection though her urinalysis shows a great deal of pyuria. She did note that she has very poor urine output over the past few days leading up to this admission at [facility]. PAST MEDICAL HISTORY: 1. Hypertension. 2. Ischemic colitis. 3. Right femoral neck fracture which has been pinned and is stable. 4. Breast cancer felt to be in remission. 5. Status post cholecystectomy. 6. History of UTIs but none for the last year. SOCIAL HISTORY: The patient lives by herself but near her daughter in the [facility]. She is a nonsmoker, nondrinker and, as noted, grew up in [place] during the war. FAMILY HISTORY: Negative for tuberculosis in any 1st or 2nd-degree relatives. REVIEW OF SYSTEMS: The patient has no significant headache, visual change, sore throat, cough, shortness of breath or chest pain. She has, according to her son, been having nausea with vomiting and perhaps abdominal cramps in the days leading up to her admission. There is currently no history of abdominal pain though. She denies urgency, frequency or dysuria, but has noted diminished urine output. The patient denies significant lower extremity edema. No new pain in her joints and no skin rash. The remainder of the review of systems is negative. PHYSICAL EXAMINATION: Reveals an afebrile woman. Temp 37.2, pulse 105, respiratory rate 16, blood pressure 106/56. She is saturating 91% on 4 L. The patient is a bit lethargic and a bit hard of hearing, but she is alert and oriented and able to give some history at least. There is no evidence for head trauma despite her recent fall. No apparent injury to her occiput where she fell. Her eyes are with clear without conjunctivitis or scleral icterus. Oral cavity: No thrush, hairy leukoplakia. Neck: Reasonably supple. No JVD is seen. Lungs: Fairly clear with poor quality stethoscope/ Cardiac tones: Regular rate and rhythm with soft systolic murmur. Abdomen is distended with minimal bowel tones. No focal tenderness, however. No suprapubic fullness. Altamirano catheter is present draining fairly small amounts of urine which our Urology beauty sales consultant describes as dark wheat beer. The extremities are without evidence of cellulitis or edema. Peripheral pulses are quite good. No skin rashes noted, and the patient is grossly intact neurologically. LABORATORIES: Include white count has ranged from 11 to 17,000, now 12,000. Diff with left shift 85% segs. Her hematocrit 29. Creatinine has basically been right around 9 since admission two full days ago. She was 8.86, now 9.07 and no significant change. BUN is 100. Calcium 6.7. Total protein 5.5. Procalcitonin 2.72 which is a bit high even considering her renal impairment. Urinalysis packed with white cells, 0-2 red cells. Stool PCR positive for C. diff. No other cultures are available either here or at [facility]. IMAGING: Includes a retroperitoneal ultrasound which shows a right renal cyst with internal septations. She was also noted to have a large postvoid residual. On the CT scan, there is much more detail and this revealed she has a severe right hydronephrosis suggesting a UPJ obstruction. We discussed this with our urology beauty sales consultant, Dr. Rodriguez, in person and he believes this is a chronic obstruction with a largely nonfunctional right kidney. She also has a distended bladder wall consistent with cystitis and diverticulosis. Questionable changes for aspiration are reported. IMPRESSION: This is a bit of a confusing case of a woman who is fairly stoic and denies having much in the way of symptoms until her fall on the at which time she was discovered to have a tremendously elevated creatinine. Her son provides some useful history and tells us that she has had some abdominal cramps, nausea and vomiting prior to admission though it is unclear if she had diarrhea or not. She has had diarrhea since admission and we have a positive stool for Clostridium difficile. Why she has C. difficile is a bit unclear. She has not had antibiotics in the last year or so though she did take a recent trip with a girlfriend to the [facility] [place] and is active socially with friends in the neighborhood. Probably, the patient has a significant urinary tract infection but Dr. Rodriguez thinks it is not on the basis of the obstruction at the UPJ and resultant hydronephrosis. More likely, she has a cystitis, though it is possible that she has pyuria just on the basis of atrophic vaginitis or some other process related to her age without actually having a urinary tract infection as she denies dysuria, urgency, or frequency. The optimal management of her C. diff would include oral Vanco or oral fidaxomicin. Some experts suggest adding Flagyl in life-threatening disease, and I think this would qualify given that she has quite a significant leukocytosis as well as an amazingly elevated BUN and creatinine, and this is one of the worst markers in terms of outcome for C. diff in old people. How to manage her possible urinary tract infection without making her C. diff worse is a question. Unfortunately, we do not have any pending urine cultures to help guide us and narrow our antibiotics so, for now, will continue with the Zosyn that has been started even acknowledging that it may make her C. diff a bit worse. RECOMMENDATIONS: 1. Urinalysis with urine cultures have been ordered. 2. Blood cultures have been ordered. 3. Will add IV Flagyl to the oral vancomycin and IV Zosyn she is currently receiving. 4. Once we have a urine isolate, if one is found, we will attempt to dramatically narrow our coverage and avoid nephrotoxic agents and avoid agents which will make C. difficile worse.
[2017-04-14] VITALS (15 sets, daily range): BP systolic 83–144; BP diastolic 41–76; PULSE 88–115; RESP 16–28; O2SAT 91–96
[2017-04-14] MEDS: Piperacillin-Tazo 3.375 Gm Inj 3.375 GM in Dextrose 5% Minibag Plus 50 ML IV SCH ×2 (00:47→13:02)
[2017-04-14] MEDS: Vancomycin 125 mg Oral Capsule PO SCH ×4 (00:47→17:53)
[2017-04-14] MEDS: Heparin 5,000 Unit/mL Inj SUBQ SCH ×3 (00:48→17:48)
--- NOTE | 2017-04-14 04:43 | NUR ---
GI/ Pt Altamirano patent and draining yellow and very cloudy urine, pt output this shift 500mL. Pt continues to have multiple liquid stools, FMS placed to protect pt skin and tex area as pt has UTI in addition to C diff. No c/o of pain, CP or SOB. Pt is on 4L NC with SpO2 91-93%. Pt has poor bed mobility and has been turned Q2 hours. VSS and Tele SR/T and pt had a 4 second run of PSVT x1 this shift.
--- NOTE | 2017-04-14 07:56 | PROG NOTE ---
[address] [address] PROGRESS NOTE PATIENT: LAURA SANABRIA : 1930 MR#: [id number] ADMIT: 04/11/2017 JOB ID: [id number] DATE: 04/14/2017 SUBJECTIVE: She complains of getting no rest, otherwise no new complaints. She rested intermittently through the night. She had 2 liquid stools. OBJECTIVE: Currently afebrile T-max 38.3 axillary, current pulse rate 93 but had been running at 100-110. Urine output is 500 cc. She is resting comfortably in bed in no distress. Exam not repeated. Laboratories all are pending. Of note apparently urine culture ordered by Dr. Harris yesterday afternoon is listed as canceled, and I have re-ordered request for procurement and submission for culture and sensitivity. IMPRESSION: 1. Probable urinary tract infection/early urosepsis. 2. 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 3. Acute on chronic kidney disease. Etiology of acute presentation likely acute tubular necrosis. 4. Postmenopausal atrophic vaginitis. 5. History of recurrent urinary tract infection. PLAN: 1. I have gone ahead and reordered a urine for culture and sensitivity. 2. Osphena 60 mg p.o. daily. Cc: [facility]
[2017-04-14 08:10] LABS: Mean Corpuscular Hemoglobin 27.5 pg (27.0-35.0); Mean Corpuscular Volume 82.4 fL (81-100); Platelet Count 346 bil/L (150-400)
[2017-04-14] MEDS: Lactulose 20 Gm/30 mL 30 mL Syrup PO SCH (08:30)
[2017-04-14 08:51] LABS: BASOPHILS % (AUTO) 1 % (0-3); EOSINOPHILS % (AUTO) 0 % (0-5); MONOCYTES % (AUTO) 4 % (4-12); NEUTROPHILS % (AUTO) 83 % (40-74)
[2017-04-14 08:56] LABS: APPEARANCE,URINE TURBID (CLEAR,HAZY); COLOR,URINE STRAW (YELLOW); OCCULT BLOOD,URINE LARGE (NEGATIVE); PH,URINE 5.5 (5.0-8.0); UROBILINOGEN,URINE NORMAL (NORMAL)
--- NOTE | 2017-04-14 11:24 | PROG NOTE ---
[address] [address] PROGRESS NOTE PATIENT: LAURA SANABRIA : 1930 MR#: [id number] ADMIT: 04/11/2017 JOB ID: [id number] DATE: 04/14/2017 INFECTIOUS DISEASE FOLLOWUP NOTE: REASON FOR FOLLOWUP: Acute renal failure secondary to C. difficile colitis, as well as possible urinary tract infection. INTERVAL HISTORY: This morning the patient notes that she is quite weak and that this continues. She is both tired and somnolent, as well as just physically worn out. She denies, however, fevers, chills, or sweats. She has no significant cough or shortness of breath. She notes her belly is distended but not especially tender. She continues to have frequent loose stools, and the nurses installed an FMS. She also continues to have a rather low urine output through her Altamirano catheter. PHYSICAL EXAMINATION: Reveals an afebrile woman. Temp 36.6 but she was febrile at 2100 hours last night at 38.3. Pulse 90, respiratory rate 20, blood pressure 93/45, saturating well on 3 L. She is in no acute distress but does look just played out. Eyes without conjunctivitis. Oral cavity negative. Lungs relatively clear. Cardiac tones: Regular rate and rhythm. No significant murmur appreciated. Abdomen is distended and perhaps mildly tender to palpation throughout but this is not severe, and there is no rebound or guarding. Diminished bowel tones are heard throughout the abdomen. She now has an FMS, as well as a Altamirano catheter. Urine output has been about 500 cc a day which is barely adequate. There is no rash and no significant peripheral edema. LABORATORY STUDIES: Include white count which is stable at 11,000, really not having changed since admission. There is still a left shift with metamyelocytes and myelocytes present. Platelets normal at 346. Creatinine 9.57. LFT normal. Her last procalcitonin 2.72 two days ago. Urinalysis packed with white cells, and the urine culture is pending, as was just done this morning, apparently. Stool PCR was positive for C. diff. Blood cultures negative so far. The abdominal and pelvic CT without contrast showed changes consistent with cystitis, as well as severe right hydronephrosis, with presumed UPJ obstruction, which appears to be chronic. IMPRESSION: This is an unfortunate patient who was in reasonably good health until some time, probably within the past week or so, when she started to have some vague abdominal complaints, which she reported to her children. She then fell over on the day of admission, was brought in and found to have a creatinine of around 9, which has actually worsened since admission. In speaking to both Urology and Nephrology, both consultants believe that she has acute tubular necrosis on the basis of fluid losses due to her Clostridium difficile and possible concomitant urinary tract infection. Both Nephrology and Urology agree there would be no value to stenting or even a nephrostomy on her right kidney, as it has likely been nonfunctional for a long period of time based on this ureteropelvic junction obstruction. The nephrology loss prevention consultant in particular was concerned that the patient may not regain full renal function given the severity of this acute tubular necrosis and she may require at least temporary dialysis in the very near future. RECOMMENDATIONS: 1. Will continue with IV Flagyl combined with oral vancomycin as optimal and most aggressive therapy for C. diff. 2. Will continue with Zosyn for a period of 7-10 days aimed at a possible urinary tract infection even though we have no culture and no definitive evidence that she even has a urinary tract infection. 3. Will continue to closely follow this patient and her complicated renal situation over the next few days.
[2017-04-14] MEDS ORDERED: Sodium Bicarb 8.4% Inj 150 MEQ in Dextrose 5% 1,000 ML IV SCH (11:40)
[2017-04-14] MEDS ORDERED: Darbepoetin Alfa 40 mCg/0.4 mL Inj SUBQ ONE (11:40)
--- NOTE | 2017-04-14 11:49 | PCM.PNNEPH ---
Subjective Date of Service April 14, 2017 Subjective Abd US in Jul 2016 [facility] showed severely dilated right renal pelvis and dilated visualized proximal right ureter, 2.6 cm with cortical thinning without visualized filling defect or mass, suspected chronic and severe right vesicoureteral reflux disease. Rectal tube placed. Kidney function continues to decline. She has no CP/SOB/F/C. c/o abd girth. Exam Vital Signs Vital Sign - Last Date Time Temp Pulse Resp B/P Pulse Ox O2 Delivery O2 Flow Rate FiO2 04/14/17 10:52 88 04/14/17 07:50 36.6 20 93/45 93 Nasal Cannula 3.50 Intake and Output 04/13/17 04/13/17 04/14/17 Cumulative From/Thru 15:00 23:00 07:00 04/11/17 17:35 - 04/14/17 05:45 Intake Total 1429 ml 1156 ml 6671 ml Output Total 450 ml 500 ml 2100 ml Balance 979 ml 656 ml 4571 ml Intake Oral 400 ml 1500 ml IV Total 1429 ml 756 ml 5171 ml Output Urine Total 450 ml 500 ml 2100 ml # Bowel Movements 1 7 Exam General: Frail appearance, in NAD. AAOx3. HEENT: Normocephalic, atraumatic. Dry MM, no pallor, anicteric sclerae. Neck: Supple. No jugular venous distension. No lymphadenopathy or thyromegaly. Cardiovascular: Regular rate and rhythm with soft systolic murmur. Pulmonary: Clear to auscultation bilaterally with no crackles, wheezes, or rhonchi. Normal respiratory effort with no use of accessory muscles. Abdomen: Soft, mildly distended. No hepatosplenomegaly or masses appreciated. No tenderness to palpation. Active BS. Rectal tube placed. Extremities: No clubbing, cyanosis, edema. (+) Flapping tremors. Lab and Diagnostics Result Diagram: 04/14/1722404/14/17224 X-Rays, CTs and MRIs US RENAL SONOGRAM IMPRESSION: Multiple mildly complex right renal cysts, some of which demonstrate internal septations. Recommend continued surveillance with renal ultrasound or CT. Given the absence of any relevant prior comparison studies, consider initial workup with CT (in the non-emergent setting). Large postvoid residual. Internal bladder echoes, presumably intraluminal debris. Renal cortical thinning/atrophy Dictated by: Lamin Stack M.D. on 04/11/2017 at 19:32 CT ABDOMEN AND PELVIS WITHOUT CONTRAST IMPRESSION: 1. Severe right hydronephrosis without hydroureter suggesting a UPJ obstruction. No radiopaque stones identified. 2. Concentric bladder wall thickening of a distended urinary bladder compatible with cystitis. Recommend correlation with urinalysis. 3. Diverticulosis without acute diverticulitis. 4. Small bilateral pleural effusions with bibasilar consolidation suspicious for pneumonia. The findings also raise the possibility of aspiration. Dictated by: Andrade Livingston M.D. on 04/12/2017 at 13:22 Plan Impression 1. VICTOR MANUEL, no h/o CKD. - ischemic ATN with component of prerenal. - Severe right hydronephrosis noted per CT abd. - Abd US in Jul 2016 form [place] showed severely dilated right renal pelvis and dilated visualized proximal right ureter, 2.6 cm with cortical thinning without visualized filling defect or mass, suspected chronic and severe right vesicoureteral reflux disease. Dw Dr. Rodriguez, will continue only supportive treatment for now. Given chronic right urinary tract obstruction/refulx, ureteral stent or nephrostomy tube placement would likely not improve her kidney function. It appears that she has had one functioning kidney for quite some. Owing to severe and ongoing infection, the etiology of VICTOR MANUEL is likely due to ATN. Family has been updated regarding her condition. Questions were answered. 2. Hyponatremia in the setting of renal insufficiency. 3. Complicated UTI. 4. C.diff colitis. 5. Essential HTN. 6. Normocytic anemia. Plan: - Continue bicarb gtt today. - Repeat BMP in am. - If serum creatinine remains unchanged, will consider initiating HD. - Add aranesp subQ. Monica Marquez MD April 14, 2017 11:49
--- NOTE | 2017-04-14 13:15 | PCM.PNMED ---
Subjective Date of Service April 14, 2017 Subjective Caitie Monet is an 86 year old woman with past medical history significant for hypertension, breast cancer in remission, hyperlipidemia, and diverticular disease who presented to [facility] from [facility] due to hyperkalemia and acute kidney injury. The patient is currently under treatment for C. Difficile colitis, acute kidney injury and a UTI as well as possible toxic encephalopathy and right hydronephrosis. Hospital day #4 Overnight: Patient had an FMS placed. Today: The patient denies any abdominal pain. She notes that she is tried and has been sleeping a lot. The remainder review of systems is negative except as noted above. Exam Vital Signs Vital Sign - Last Date Time Temp Pulse Resp B/P Pulse Ox O2 Delivery O2 Flow Rate FiO2 04/14/17 10:52 88 04/14/17 07:50 36.6 20 93/45 93 Nasal Cannula 3.50 Intake and Output 04/13/17 04/13/17 04/14/17 Cumulative From/Thru 15:00 23:00 07:00 04/11/17 17:35 - 04/14/17 05:45 Intake Total 1429 ml 1156 ml 6671 ml Output Total 450 ml 500 ml 2100 ml Balance 979 ml 656 ml 4571 ml Intake Oral 400 ml 1500 ml IV Total 1429 ml 756 ml 5171 ml Output Urine Total 450 ml 500 ml 2100 ml # Bowel Movements 1 7 Exam General: No acute distress, thin elderly female sitting up in hospital. Forgetful and seems confused. HEENT: Normocephalic, atraumatic. External ears without defect. Pupils equal, round, and reactive to light and accommodation. Anicteric sclerae, moist conjunctivae, and no lid lag. Oropharynx free of erythema and cobble stoning with moist mucosa. Neck: Supple with full range of motion. No jugular venous distension. No lymphadenopathy or thyromegaly. Cardiovascular: Regular rate and rhythm with soft systolic murmur. Pulmonary: Clear to auscultation bilaterally with no crackles, wheezes, or rhonchi. Normal respiratory effort with no use of accessory muscles. Abdomen: Soft, mildly distended. No hepatosplenomegaly or masses appreciated. No tenderness to palpation. Hyperactive bowel sounds : Altamirano in place. Draining yellow urine. Extremities: No clubbing, cyanosis, edema, or lymphadenopathy appreciated. Half -and-half nails noted. Skin: Normal temperature, turgor, and texture; no rash, ulcers, or subcutaneous nodules appreciated. Neurological: Cranial nerves grossly intact. Normal muscle strength, tone, and bulk. Asterixis noted, unchanged from yesterday. Psychiatric: Normal mood and affect. Alert and oriented to person, place, and time. IVs and Medications Medications Reviewed: Medications were reviewed in detail Lab and Diagnostics Result Diagram: 04/14/1722404/14/17224 X-Rays, CTs and MRIs US RENAL SONOGRAM IMPRESSION: Multiple mildly complex right renal cysts, some of which demonstrate internal septations. Recommend continued surveillance with renal ultrasound or CT. Given the absence of any relevant prior comparison studies, consider initial workup with CT (in the non-emergent setting). Large postvoid residual. Internal bladder echoes, presumably intraluminal debris. Renal cortical thinning/atrophy Dictated by: Lamin Stack M.D. on 04/11/2017 at 19:32 CT ABDOMEN AND PELVIS WITHOUT CONTRAST IMPRESSION: 1. Severe right hydronephrosis without hydroureter suggesting a UPJ obstruction. No radiopaque stones identified. 2. Concentric bladder wall thickening of a distended urinary bladder compatible with cystitis. Recommend correlation with urinalysis. 3. Diverticulosis without acute diverticulitis. 4. Small bilateral pleural effusions with bibasilar consolidation suspicious for pneumonia. The findings also raise the possibility of aspiration. Dictated by: Andrade Livingston M.D. on 04/12/2017 at 13:22 Assessment & Plan Caitie Monet is an 86 year old woman with past medical history significant for hypertension, breast cancer in remission, hyperlipidemia, and diverticular disease who presented to [facility] from [facility] due to hyperkalemia and acute kidney injury. The patient is currently under treatment for C. Difficile colitis, acute kidney injury and a UTI as well as possible toxic encephalopathy and right hydronephrosis. Hospital day #4 1. Acute injury kidney injury secondary to dehydration secondary to C. difficile colitis in a patient with CKD with a chronic right UPJ, present on admission, active. -worsening -Nephrology consulted, appreciate recommendations and expertise. We will follow. Likely patient will need dialysis soon. -Continue IVF per nephrology -Urology consulted for right hydronephrosis and probable UPJ obstruction. Upon review of past abdominal U/S patient was noted to have hydronephrosis about one year ago. 2. C. difficile colitis, present on admission, active. -PO vancomycin and IV Flagyl. Antibiotic day 3. -CT showing reticulitis as well. -Infectious disease consulted. We will follow recommendations. 3. Urinary tract infection in a patient with a history of recurrent UTIs, present on admission, active -Patient noted to have a very dirty urine and has bladder retention as well -May be due to cross-contamination from diarrhea with stasis -Zosyn, day 3. Infectious disease consulted. -Repeat UA with culture obtained. 4. Possible toxic encephalopathy with asterixis, present on admission, active -May be due to uremia as well. -No history of cirrhosis noted per patient's report. CT of abdomen does not reveal a cirrhotic appearing liver. -Ammonia is elevated. Per family the patient is mildly more altered than her baseline. -Stop low-dose lactulose as patient requires an FMS -We will continue to monitor mentation 5. Normocytic normochromic anemia, present on admission, stable -Likely secondary to chronic kidney disease -Continue to monitor. Will defer to nephrology regarding further intervention. 6. Hyperkalemia, present on admission, resolved. 7. Hypertension, chronic -Hold blood pressure medications at this time 8. Hyponatremia - stable Disposition: The patient will likely be in the hospital for 2-3 more days as she is evaluated and treated for the above problems. VTE Mechanical Devices: Venous Foot Pump Resuscitation Status: CPR: Attempt Resuscitation Attending Statement Patient seen and examined with housestaff. Agree with all attached documentation. Carmelina Lazcano DO April 14, 2017 11:43 Krishna Vyas MD April 16, 2017 07:54
--- NOTE | 2017-04-14 13:49 | NUR ---
NUTRITION ASSESSMENT Assess: 86 YO F admitted for acute renal failure, dehydration, and C.diff colitis. Per notes, if creatinine stays the same dialysis will be considered. Pt has had poor PO intake X 3 days. PMHX: HTN, ischemic colitis, fracture femur, breast cancer, diverticulosis. DIET: Renal. PO intake bites-30%. LABS: Na 131, BUN 99, Cr 9.57, Ca 6.8, (04/13) Phos 5.9 MEDICATIONS: Reviewed. Bacid. GI: 1 BM 04/14. C.diff positive. SKIN: No issues noted. ANTHROPOMETRICS: Wt: 63.6 kg, BMI 25.6 kg/m2, Admit wt: 58.3 kg. ESTIMATED NEEDS: ARF Calories: 9710-3956 kcal/day (25-35 kcal/kg BW) Protein: 35-47 g/day (0.6-0.8 g/kg BW) NUTRITION DIAGNOSIS: 1) Inadequate oral intake related to decreased ability to consume sufficient energy as evidenced by poor PO intake X 3 days. INTERVENTION: 1) Will add Nepro to current diet to encourage adequate nutrition. 2) Will adjust estimated needs if pt require dialysis. MONITOR/EVALUATE: PO intake, diet tolerance, dialysis, labs, GI/nutrition status. Follow per moderate nutrition risk guidelines.
--- NOTE | 2017-04-14 14:42 | NUR ---
Social Work Note: Continued Discharge Planning Data& Assessment: Per MD in morning rounds pt is not medically ready for discharge at his time. ID is following and urology. Pt is positive for CDIFF. SW met with pt and pt family at bedside to discuss discharge planning, SW role explained. Pt family explained pt has not been out of bed very much during this hospitalization and normally does not require oxygen at home either. Pt family has a room reserved for pt at [facility] in [place] that pt will transition to when he recovers from this hospitalization. Pt family provided with SNF and Home Health list to review for preferences in case pt requires ongoing PT or group home needs at time of discharge. Pt family denies any other needs at this time. SW to follow for MD, ID and PT recommendations. Plan: Anticipated discharge to [facility] when medically ready. SW to follow to rule out SNF vs. HH. SNF/HH list provided for preferences just in case. SW to follow for MD, ID and PT recommendations. Pt family denies any other needs at this time. NICHOL Vick
[2017-04-14 19:09] LABS: Norovirus GII Negative (Negative)
--- NOTE | 2017-04-14 19:43 | NUR ---
FMS/PSVT Cardiac: Denies CP, Tele SR 80-120, 5 min of PSVT up to 140 this AM around 900. Resp: Pt denies SOB, SPO2 92-94% on 4L NC. GI/: Altamirano draining to gravity. FMS inadvertently dc'd today, pt is having less diarrhea this afternoon and is able to notify staff when she is incontinent of diarrhea. FMS was not replaced, but will be reassessed going into NOC shift. Neuro: A&O X3. Pt is very sleepy this morning, much more perky this afternoon.
--- NOTE | 2017-04-14 21:35 | NUR ---
Pramod Blood from Rectum: P: Pt noted to have dark maroon gelatinous/clotted stool at change of shift when the pt was cleaned up of incontinent bowel by day and night RNs. The pt was noted to be incontinent of a large amount of liquid bowel of the same color and consistency at time of assessment. I: A fecal management system was placed back in and Dr. Collins was notified of the replacement of the FMS and the color and appearance of pramod blood coming from the rectum prior to insertion of FMS. New orders obtained to draw an H&H a now. E: Pt stable; will cont. to closely monitor.
--- NOTE | 2017-04-14 23:10 | NUR ---
Output from FMS: P: 700s ml of pramod blood emptied into FMS bag. I: Dr. Collins notified. Heparin injections dc'd. E: H/H stable at 9.1 and 26.7. Will cont. to monitor.
[2017-04-14] MEDS ORDERED: Sodium Acetate Inj 150 MEQ in Dextrose 5% 1,000 ML IV SCH (23:19)
--- NOTE | 2017-04-14 23:30 | NUR ---
Hypotensive: P: Pt hypotensive with systolic pressures in the low 80s. Pt noted to be pale. An additional 525 mls out of pramod blood from FMS. I: Dr. Collins notified of rectal output and low blood pressure. E: Order obtained to bolus pt with 500 mls of NS and to draw next H&H at 0100.
[2017-04-14] MEDS ORDERED: 0.9% Sodium Chloride 500 ML IV ONE (23:45)
[2017-04-15] VITALS (35 sets, daily range): BP systolic 78–138; BP diastolic 40–72; PULSE 82–104; RESP 14–22; O2SAT 95–97
[2017-04-15] MEDS: Vancomycin 125 mg Oral Capsule PO SCH ×4 (00:06→18:08)
[2017-04-15] MEDS: Piperacillin-Tazo 3.375 Gm Inj 3.375 GM in Dextrose 5% Minibag Plus 50 ML IV SCH ×2 (00:32→13:54)
[2017-04-15] MEDS ORDERED: 0.9% Sodium Chloride 1,000 ML IV ONE (00:55)
--- NOTE | 2017-04-15 00:55 | NUR ---
NS Bolus: P: Pt initially responsive to fluid and then dropped pressures once bolus completed. I: Dr. Collins updated. New order for a 1 L NS bolus now. Order also obtained for a Type and Cross. E: Will cont. to closely monitor .
[2017-04-15 01:34] LABS: Mean Corpuscular Hemoglobin 27.5 pg (27.0-35.0); Mean Corpuscular Volume 81.9 fL (81-100); Platelet Count 232 bil/L (150-400)
--- NOTE | 2017-04-15 01:40 | NUR ---
Critical H&H: P: H&H dropped to 5.6 and 16.7. I: Dr. Collins notified. Orders obtained to transfuse 2 units of PRBCs now. E: Will cont. to closely monitor.
[2017-04-15 01:49] LABS: BASOPHILS % (AUTO) 0.6 % (0-3); EOSINOPHILS % (AUTO) 0.6 % (0-5); MONOCYTES % (AUTO) 5.2 % (4-12); NEUTROPHILS % (AUTO) 82.1 % (40-74)
[2017-04-15] MEDS: 0.9% Sodium Chloride 250 ML IV SCH ×4 (02:36→18:05)
--- NOTE | 2017-04-15 05:10 | NUR ---
2 units PRBCS Transfused: Pt tolerated the transfusion of 2 units of PRBCs. Of note, pt had a short run of PSVT when tranfusion was initiated. Systolic blood pressures went from the high 70s to the low 90s with the transfusion. H&H to be drawn now at 0530. Pt has more color now to her complexion. Will cont. to closely monitor. Pt cont. to have pramod blood emptying into the FMS bag, but volume has slowed down. SR in the 80s to 90s on the monitor Will cont. to closely monitor.
--- NOTE | 2017-04-15 06:29 | NUR ---
Post Transfusion H&H: P: H&H post transfusion = 23.1 and 7.8 I: Dr. Collins notified of level and FMS output of 1700 mls for the shift. New orders obtained to transfuse another 2 units of PRBCs. E: 3rd unit of PRBCs started. Will cont. to monitor.
--- NOTE | 2017-04-15 07:40 | PROG NOTE ---
[address] [address] PROGRESS NOTE PATIENT: LAURA SANABRIA : 1930 MR#: [id number] ADMIT: 04/11/2017 JOB ID: [id number] DATE: 04/15/2017 SUBJECTIVE: She has received blood transfusions in the interval for a rather abrupt drop in hemoglobin and hematocrit. The 8-hour urine output 868 cc. PHYSICAL EXAMINATION: Vital signs are stable. Currently, temperature of 36.5. Blood pressure has been stable but low at about 90/50. She voices no new complaints, seems somnolent. LABORATORIES: Creatinine has declined slightly to 8.62. BUN 94. Sodium remains a bit low at 132. Posttransfusion hemoglobin 7.8, hematocrit 23.1. Blood cultures x2 pending. IMPRESSION: 1. Acute imposed on chronic kidney disease. 2. High-grade chronic right ureteropelvic junction obstruction. 3. History of recurrent urinary tract infection current, likely urinary tract infection/urosepsis. PLAN: As per initial consult, once the organism and sensitivity identified from urine, would recommend a minimum of three week total treatment. I would consider placement of a right percutaneous nephrostomy, as she did not improve rather promptly within 48-72 hours initiating appropriate antibiotic therapy. Atrophic vaginitis. I spoke with the pharmacy. They do not carry Osphena in-house. She should be discharged on Osphena 60 mg daily.
[2017-04-15] MEDS ORDERED: Calcium GLUCO 10% (mEq) Inj 9.3 MEQ in Dextrose 5% 100 ML IV ONE (07:50)
[2017-04-15] MEDS: 0.9% Sodium Chloride 1,000 ML IV SCH ×3 (08:00→21:05)
--- NOTE | 2017-04-15 08:52 | PROG NOTE ---
[address] [address] PROGRESS NOTE PATIENT: LAURA SANABRIA : 1930 MR#: [id number] ADMIT: 04/11/2017 JOB ID: [id number] DATE: 04/15/2017 INFECTIOUS DISEASE FOLLOW UP NOTE: REASON FOR FOLLOW UP: Acute renal failure secondary to C. difficile colitis. INTERVAL HISTORY: Overnight, the patient suffered a major complication when she developed bright red blood per rectum following replacement of a fecal management system tube per rectum. Bright red blood came out in copious quantities which required the transfusion of four units of blood, three of which have already been completed. Throughout this surprising complication, the patient has remained hemodynamically stable. Overall she states she feels weak and tired this morning, but no fevers, no chills, no cough. No severe abdominal pain. No severe perirectal pain. PHYSICAL EXAMINATION: Reveals an afebrile woman. Temperature 36.7, she has now been afebrile for 36 hours following initial couple days when she had significant high spiking fevers. Pulse 84, respiratory rate 16, blood pressure 100/48, saturating well on 3 L. She is in no obvious distress. Oral cavity without change. Lungs clear. Cardiac tones: Regular rate and rhythm. Abdomen: Fairly soft and nontender throughout. Perhaps less distended than yesterday. She still has a Altamirano catheter. Urine output continues to be low with 400-500 cc per day. LABORATORIES: Include white count which has normalized at 8400. The crit which dropped from 28 or 29 down to 16 overnight requiring the transfusions. Differential is improving still with a bit of a left shift. Creatinine is finally starting to come down. It was 9.6 yesterday, 8.6 today, so major improvement there and urine culture is pending. Recall that there was a delay in obtaining the urine culture but the urinalysis showed packed white cells. Stool PCR positive for C difficile. Blood cultures negative. IMPRESSION: This patient is starting to show signs of improvement both with respect to her C. difficile as well as the renal failure secondary to the C. difficile itself. The setback overnight has been the rectal bleeding after replacement of an FMS. At this point, she seems hemodynamically stable but we await a CT scan to better delineate what occurred with the FMS issue. RECOMMENDATIONS: 1. Will continue with our current antibiotics which include Zosyn IV for presumptive UTI as well as Flagyl IV and oral vanco for proven C difficile colitis. 2. This case discussed in detail with Nephrology. 3. Will continue to closely monitor this complex patient.
[2017-04-15] MEDS ORDERED: Desmopressin Inj 20 MCG in 0.9% Sodium Chloride 50 ML IV ONE (11:20)
--- NOTE | 2017-04-15 11:25 | PCM.PNNEPH ---
Subjective Date of Service April 15, 2017 Subjective Rectal bleed noted complicated by hypotension and and acute anemia. Thus far she has received 4 units of packed RBCs. Hb 5.6 increased to 7.8. Patient reported history of diverticulosis and diverticulitis in the past. Last episode of rectal bleed was ~ 3 years ago. Exam Vital Signs Vital Sign - Last Date Time Temp Pulse Resp B/P Pulse Ox O2 Delivery O2 Flow Rate FiO2 04/15/17 10:28 85 04/15/17 09:35 36.6 16 106/53 04/15/17 08:06 97 Nasal Cannula 3.50 Intake and Output 04/14/17 04/14/17 04/15/17 Cumulative From/Thru 15:00 23:00 07:00 04/11/17 17:35 - 04/15/17 06:59 Intake Total 1735 ml 3368 ml 94394 ml Output Total 500 ml 2500 ml 5100 ml Balance 1235 ml 868 ml 6674 ml Intake Oral 720 ml 250 ml 2470 ml IV Total 1015 ml 2492 ml 8678 ml Packed Cells 626 ml 626 ml Output Urine Total 500 ml 800 ml 3400 ml Stool Total 1700 ml 1700 ml # Bowel Movements 3 1 11 Exam General: Frail appearance, in NAD. AAOx3. HEENT: Normocephalic, atraumatic. Dry MM, no pallor, anicteric sclerae. Neck: Supple. No jugular venous distension. No lymphadenopathy or thyromegaly. Cardiovascular: Regular rate and rhythm with soft systolic murmur. Pulmonary: Clear to auscultation bilaterally with no crackles, wheezes, or rhonchi. Normal respiratory effort with no use of accessory muscles. Abdomen: Soft, mildly distended. No hepatosplenomegaly or masses appreciated. No tenderness to palpation. Active BS. Rectal tube placed with dark maroon blood. Extremities: No clubbing, cyanosis, edema. (+) Flapping tremors. Lab and Diagnostics Result Diagram: 04/15/17 0530 04/15/17 0117 X-Rays, CTs and MRIs US RENAL SONOGRAM IMPRESSION: Multiple mildly complex right renal cysts, some of which demonstrate internal septations. Recommend continued surveillance with renal ultrasound or CT. Given the absence of any relevant prior comparison studies, consider initial workup with CT (in the non-emergent setting). Large postvoid residual. Internal bladder echoes, presumably intraluminal debris. Renal cortical thinning/atrophy Dictated by: Lamin Stack M.D. on 04/11/2017 at 19:32 CT ABDOMEN AND PELVIS WITHOUT CONTRAST IMPRESSION: 1. Severe right hydronephrosis without hydroureter suggesting a UPJ obstruction. No radiopaque stones identified. 2. Concentric bladder wall thickening of a distended urinary bladder compatible with cystitis. Recommend correlation with urinalysis. 3. Diverticulosis without acute diverticulitis. 4. Small bilateral pleural effusions with bibasilar consolidation suspicious for pneumonia. The findings also raise the possibility of aspiration. Dictated by: Andrade Livingston M.D. on 04/12/2017 at 13:22 Plan Impression 1. VICTOR MANUEL, no h/o CKD. - ischemic ATN with component of prerenal. - Severe right hydronephrosis noted per CT abd. - Abd US in Jul 2016 form [facility] showed severely dilated right renal pelvis and dilated visualized proximal right ureter, 2.6 cm with cortical thinning without visualized filling defect or mass, suspected chronic and severe right vesicoureteral reflux disease. Dw Dr. Rodriguez, will continue only supportive treatment for now. Given chronic right urinary tract obstruction/refulx, ureteral stent or nephrostomy tube placement would likely not improve her kidney function. It appears that she has had one functioning kidney for quite some. Owing to severe and ongoing infection, the etiology of VICTOR MANUEL is likely due to ATN. Serum creatinine has trended either because of dilution artifact from multiple blood transfusions or improving of the kidney function. 2. Acute anemia due to acute rectal bleed. Patient reported history of diverticulosis and diverticulitis in the past. Last episode of rectal bleed was 3 years ago. 3. Complicated UTI. 4. C.diff colitis. 5. Essential HTN. 6. Normocytic anemia. 7. Hypocalcemia likely related to acute kidney injury and blood product induced hypocalcemia. Plan: Continue supportive treatment for now. Maintain hemoglobin around 8. Consider IV diuretics as needed once blood pressure is stable to enhance her urine output. We will give IV calcium gluconate 1 g. Recommended DDAVP 20 mcg over half an hour. Monica Marquez MD April 15, 2017 11:25
--- NOTE | 2017-04-15 14:14 | DRSVH ---
PROCEDURE: CT ABDOMEN AND PELVIS WITHOUT CONTRAST ([id number]) INDICATIONS: colitis, acute LGIB TECHNIQUE: After the administration of oral contrast, 5 mm thick sections acquired from the diaphragms to the sy mphysis. 5 mm coronal and sagittal reformats were performed. For radiation dose reduction, the foll owing was used: automated exposure control, adjustment of mA and/or kV according to patient size. COMPARISON: [facility], CT, CT ABD PELVIS WO CON, 04/12/2017, 12:51. FINDINGS: Image quality: Excellent. ABDOMEN: Lung bases: There are moderate-sized bilateral pleural effusions, increased from the prior study, as well as bibasilar compressive atelectasis and consolidation in the lower lobes. Heart size is juan jose l. There is a small hiatal hernia. Solid organs: A small hypodense cyst is again noted within the right hepatic lobe. Spleen is normal in size. Gallbladder is surgically absent. The pancreas is mildly atrophic in size with scattered c alcifications suggesting sequela of chronic pancreatitis. No pancreatic duct dilatation. Pancreas i s normal in size. No adrenal nodules. There is severe dilatation of the right renal collecting syst em redemonstrated with a transition at the ureteropelvic junction. No discrete obstructing stone vis ualized. Left kidney demonstrates no hydronephrosis. The ureters are normal in caliber. There is n onspecific perinephric stranding redemonstrated. Peritoneum and bowel: There is mild segmental wall thickening in the duodenum with mild fat strandin g. There is subsequent mild dilatation within the proximal jejunum. Remainder of the small bowel is normal in caliber and wall thickness. There is colonic diverticulosis without acute diverticulitis. Segmental wall thickening is redemonstrated within the sigmoid colon, increased distally with areas of eccentric thickening. There is a small amount of free fluid in the abdomen and pelvis. No free air. Nodes and vessels: No retroperitoneal or mesenteric adenopathy by size criteria. Aorta and inferior vena cava are normal in size. Miscellaneous: No ventral hernias. There is diffuse subcutaneous edema suggesting anasarca. PELVIS: Genitourinary: There is a Altamirano catheter within a decompressed urinary bladder with concentric bladde r wall thickening and associated fat stranding consistent with a nonspecific cystitis. Miscellaneous: No inguinal hernias or adenopathy. Bones: No suspicious bony lesions. There are postsurgical changes in the right hip with associated metallic streak artifact. There are associated old healed right intertrochanteric, right inferior an d superior pelvic rami, and right sacral fractures. No vertebral body compression fractures. IMPRESSION: 1. Segmental wall thickening of the sigmoid colon increased from the prior study consistent with a n onspecific colitis, infectious, inflammatory, or ischemic in etiology. An underlying mass is also no t excluded. 2. Segmental wall thickening of the duodenum consistent with a nonspecific duodenitis, likely infect ious or inflammatory. 3. Severe dilatation of the right renal collecting system redemonstrated likely due to a UPJ obstruc tion. 4. Concentric wall thickening of the bladder consistent with a nonspecific cystitis. Recommend nery elation with urinalysis. Dictated by: Andrade Livingston M.D. on 04/15/2017 at 13:50 Approved by: Andrade Livingston M.D. on 04/15/2017 at 14:13
--- NOTE | 2017-04-15 14:37 | PCM.PNMED ---
Subjective Date of Service April 15, 2017 Subjective Caitie Monet is an 86 year old woman with past medical history significant for hypertension, breast cancer in remission, hyperlipidemia, and diverticular disease who presented to [facility] from [facility] due to hyperkalemia and acute kidney injury. The patient is currently under treatment for C. Difficile colitis, acute kidney injury and a UTI and chronic right hydronephrosis. Hospital day #5 Overnight: The patient began to have significant rectal bleeding. She was transfused 4 units of PRBCs. Today: The patient states she if feeling better after the blood transfusion. She denies any abdominal pain but does note abdominal distention. Her bleeding has reduced significantly. The remainder review of systems is negative except as noted above. Exam Vital Signs Vital Sign - Last Date Time Temp Pulse Resp B/P Pulse Ox O2 Delivery O2 Flow Rate FiO2 04/15/17 10:28 85 04/15/17 09:35 36.6 16 106/53 04/15/17 08:06 97 Nasal Cannula 3.50 Intake and Output 04/14/17 04/14/17 04/15/17 Cumulative From/Thru 15:00 23:00 07:00 04/11/17 17:35 - 04/15/17 06:59 Intake Total 1735 ml 3368 ml 38323 ml Output Total 500 ml 2500 ml 5100 ml Balance 1235 ml 868 ml 6674 ml Intake Oral 720 ml 250 ml 2470 ml IV Total 1015 ml 2492 ml 8678 ml Packed Cells 626 ml 626 ml Output Urine Total 500 ml 800 ml 3400 ml Stool Total 1700 ml 1700 ml # Bowel Movements 3 1 11 Exam General: No acute distress, thin elderly female sitting up in hospital. Forgetful but alert and oriented. HEENT: Normocephalic, atraumatic. External ears without defect. Pupils equal, round, and reactive to light and accommodation. Anicteric sclerae, moist conjunctivae, and no lid lag. Oropharynx free of erythema and cobble stoning with moist mucosa. Neck: Supple with full range of motion. No jugular venous distension. No lymphadenopathy or thyromegaly. Cardiovascular: Regular rate and rhythm with soft systolic murmur. Pulmonary: Expiratory wheeze noted, more prominent on the left. Normal respiratory effort with no use of accessory muscles. Abdomen: Soft, mildly distended. No hepatosplenomegaly or masses appreciated. No tenderness to palpation. Hyperactive bowel sounds. FMS in place this morning with maroon output. : Altamirano in place. Draining yellow urine. Extremities: No clubbing, cyanosis, edema, or lymphadenopathy appreciated. Half -and-half nails noted. Skin: Normal temperature, turgor, and texture; no rash, ulcers, or subcutaneous nodules appreciated. Neurological: Cranial nerves grossly intact. Normal muscle strength, tone, and bulk. Asterixis noted, unchanged from yesterday. Psychiatric: Normal mood and affect. Alert and oriented to person, place, and time. IVs and Medications Medications Reviewed: Medications were reviewed in detail Lab and Diagnostics Result Diagram: 04/15/17 0530 04/15/17 0117 X-Rays, CTs and MRIs US RENAL SONOGRAM IMPRESSION: Multiple mildly complex right renal cysts, some of which demonstrate internal septations. Recommend continued surveillance with renal ultrasound or CT. Given the absence of any relevant prior comparison studies, consider initial workup with CT (in the non-emergent setting). Large postvoid residual. Internal bladder echoes, presumably intraluminal debris. Renal cortical thinning/atrophy Dictated by: Lamin Stack M.D. on 04/11/2017 at 19:32 CT ABDOMEN AND PELVIS WITHOUT CONTRAST IMPRESSION: 1. Severe right hydronephrosis without hydroureter suggesting a UPJ obstruction. No radiopaque stones identified. 2. Concentric bladder wall thickening of a distended urinary bladder compatible with cystitis. Recommend correlation with urinalysis. 3. Diverticulosis without acute diverticulitis. 4. Small bilateral pleural effusions with bibasilar consolidation suspicious for pneumonia. The findings also raise the possibility of aspiration. Dictated by: Andrade Livingston M.D. on 04/12/2017 at 13:22 Assessment & Plan Caitie Monet is an 86 year old woman with past medical history significant for hypertension, breast cancer in remission, hyperlipidemia, and diverticular disease who presented to [facility] from [facility] due to hyperkalemia and acute kidney injury. The patient is currently under treatment for C. Difficile colitis, acute kidney injury and a UTI as well as possible toxic encephalopathy and right hydronephrosis. Hospital day #5 Acute lower GI bleed in the setting of C. Diff colitis and diverticulitis in a uremic patient with a component of chronic anemia from CKD, not present on admission, active -S/P 4 units of PRBCs. Will give one unit of FFP as well. DDAV x1 as well. -The patient put out approximately 1700 cc of maroon stool overnight, the output has significantly slowed down this morning. -CT of abdomen/pelvis with PO contrast ordered to evaluate for any possible perforation Acute injury kidney injury secondary to dehydration secondary to C. difficile colitis in a patient with CKD with a chronic right UPJ, present on admission, active. Improving. -Nephrology consulted, appreciate recommendations and expertise. We will follow. Likely patient will need dialysis soon. -IVF per nephrology -Urology consulted for right hydronephrosis and probable UPJ obstruction. Upon review of past abdominal U/S patient was noted to have hydronephrosis about one year ago. C. difficile colitis, present on admission, active. -PO vancomycin and IV Flagyl. Antibiotic day 4. -CT showing reticulitis as well. -Infectious disease consulted. We will follow recommendations. Urinary tract infection in a patient with a history of recurrent UTIs, present on admission, active -Patient noted to have a very dirty urine and has bladder retention as well -May be due to cross-contamination from diarrhea with stasis -Zosyn, day 4. Infectious disease consulted. -Repeat UA with culture obtained. Possible toxic encephalopathy with asterixis, present on admission, active -May be due to uremia as well. -No history of cirrhosis noted per patient's report. CT of abdomen does not reveal a cirrhotic appearing liver. -Ammonia is elevated. Per family the patient is mildly more altered than her baseline. -Stop low-dose lactulose as patient requires an FMS -We will continue to monitor mentation Hyperkalemia, present on admission, resolved. Hypertension, chronic -Hold blood pressure medications at this time Hyponatremia - stable Disposition: The patient will likely be in the hospital for 2-3 more days as she is evaluated and treated for the above problems. VTE Mechanical Devices: Venous Foot Pump Resuscitation Status: CPR: Attempt Resuscitation Attending Statement Patient seen and examined with housestaff. Agree with all attached documentation. Carmelina Lazcano DO April 15, 2017 11:18 Krishna Vyas MD April 16, 2017 08:03
--- NOTE | 2017-04-15 19:33 | NUR ---
FMS/PRBCs/FFP Cardiac: Pt denies CP, Tele: SR 80s, 4 of 4 PRBCs started this AM, Pt vitals stable and is tolerating well. 1 FFP ordered to follow last PRBC. L forearm IV infiltrated running NS, IV dc'd, NS resumed when FFP complete. Resp: Pt denies SOB, SPO2 mid to upper 90s on 3.5L NC. Pt has cough after drinking liquids, Speech eval ordered. GI/: FMS DCd around noon today, Pt incontinent of black loose stool/diarrhea x3. Neuro: A&Ox3, LUJAN
[2017-04-16] VITALS (17 sets, daily range): BP systolic 92–128; BP diastolic 36–61; PULSE 88–117; RESP 15–23; O2SAT 94–100
[2017-04-16] MEDS: Vancomycin 125 mg Oral Capsule PO SCH ×4 (00:27→17:32)
[2017-04-16] MEDS: Piperacillin-Tazo 3.375 Gm Inj 3.375 GM in Dextrose 5% Minibag Plus 50 ML IV SCH ×2 (00:27→14:41)
[2017-04-16] MEDS: 0.9% Sodium Chloride 1,000 ML IV SCH (01:17)
[2017-04-16] MEDS: 0.9% Sodium Chloride 250 ML IV SCH ×3 (05:05→10:10)
--- NOTE | 2017-04-16 05:09 | NUR ---
Stools Pt began to have loose pramod bloody stools with clots at 0430. BP 92/47. Provider notified. Stat H&H ordered. Results received and orders given. Continue to monitor.
[2017-04-16] MEDS ORDERED: Desmopressin Inj 20 MCG in 0.9% Sodium Chloride 50 ML IV ONE (07:25)
[2017-04-16] MEDS ORDERED: Calcium GLUCO 10% (mEq) Inj 9.3 MEQ in Dextrose 5% 100 ML IV ONE (07:25)
[2017-04-16] MEDS ORDERED: PEG/Electrolytes 4,000 mL Solution PO ONE (10:05)
[2017-04-16] MEDS: metroNIDAZOLE Inj 500 MG in IV Premix 1 EACH IV SCH ×2 (11:02→17:32)
[2017-04-16] MEDS ORDERED: EPINEPHrine 0.1 mg/mL 10 mL Syringe ONE (11:03)
--- NOTE | 2017-04-16 11:22 | PCM.PNNEPH ---
Subjective Date of Service April 16, 2017 Subjective Dark maroon stool noted, received another 2 units of PRBCs. CBC and BMP today are pending. She denies CP/SOB/N/V. UOP is considerably well. Exam Vital Signs Vital Sign - Last Date Time Temp Pulse Resp B/P Pulse Ox O2 Delivery O2 Flow Rate FiO2 04/16/17 10:19 36.6 96 16 111/54 04/16/17 09:05 96 Nasal Cannula 3.50 Intake and Output 04/15/17 04/15/17 04/16/17 Cumulative From/Thru 15:00 23:00 07:00 04/11/17 17:35 - 04/16/17 06:05 Intake Total 1416 ml 2065 ml 2170 ml 02625 ml Output Total 700 ml 450 ml 6250 ml Balance 1416 ml 1365 ml 1720 ml 93206 ml Intake Oral 320 ml 2790 ml IV Total 776 ml 1440 ml 1677 ml 52214 ml TPN/PPN 493 ml 493 ml Packed Cells 640 ml 1266 ml FFP 305 ml 305 ml Output Urine Total 700 ml 450 ml 4550 ml Stool Total 1700 ml # Bowel Movements 3 3 17 Exam General: Frail appearance, in NAD. AAOx3. HEENT: Normocephalic, atraumatic. Dry MM, no pallor, anicteric sclerae. Neck: Supple. No jugular venous distension. No lymphadenopathy or thyromegaly. Cardiovascular: Regular rate and rhythm with soft systolic murmur. Pulmonary: Clear to auscultation bilaterally with no crackles, wheezes, or rhonchi. Normal respiratory effort with no use of accessory muscles. Abdomen: Soft, mildly distended. No hepatosplenomegaly or masses appreciated. No tenderness to palpation. Active BS. Rectal tube placed with dark maroon blood. Extremities: No clubbing, cyanosis, edema. : heredia cath with clear urine. Lab and Diagnostics Result Diagram: 04/16/17 0450 04/15/17 0117 X-Rays, CTs and MRIs US RENAL SONOGRAM IMPRESSION: Multiple mildly complex right renal cysts, some of which demonstrate internal septations. Recommend continued surveillance with renal ultrasound or CT. Given the absence of any relevant prior comparison studies, consider initial workup with CT (in the non-emergent setting). Large postvoid residual. Internal bladder echoes, presumably intraluminal debris. Renal cortical thinning/atrophy Dictated by: Lamin Stack M.D. on 04/11/2017 at 19:32 CT ABDOMEN AND PELVIS WITHOUT CONTRAST IMPRESSION: 1. Severe right hydronephrosis without hydroureter suggesting a UPJ obstruction. No radiopaque stones identified. 2. Concentric bladder wall thickening of a distended urinary bladder compatible with cystitis. Recommend correlation with urinalysis. 3. Diverticulosis without acute diverticulitis. 4. Small bilateral pleural effusions with bibasilar consolidation suspicious for pneumonia. The findings also raise the possibility of aspiration. Dictated by: Andrade Livingston M.D. on 04/12/2017 at 13:22 Plan Impression 1. VICTOR MANUEL, no h/o CKD. - ischemic ATN with component of prerenal. - Severe right hydronephrosis noted per CT abd. - Abd US in Jul 2016 form [place] showed severely dilated right renal pelvis and dilated visualized proximal right ureter, 2.6 cm with cortical thinning without visualized filling defect or mass, suspected chronic and severe right vesicoureteral reflux disease. Dw Dr. Rodriguez, will continue only supportive treatment for now. Given chronic right urinary tract obstruction/refulx, ureteral stent or nephrostomy tube placement would likely not improve her kidney function. It appears that she has had one functioning kidney for quite some. Owing to severe and ongoing infection, the etiology of VICTOR MANUEL is likely due to ATN. Serum creatinine has trended either because of dilution artifact from multiple blood transfusions or improving of the kidney function. 2. Acute anemia due to acute rectal bleed. Patient reported history of diverticulosis and diverticulitis in the past. Last episode of rectal bleed was 3 years ago. 3. Complicated UTI. 4. C.diff colitis. 5. Essential HTN. 6. Normocytic anemia. 7. Hypocalcemia likely related to acute kidney injury and blood product induced hypocalcemia. Plan: Continue supportive treatment. Maintain hemoglobin around 8. Repeat stat CBC and BMP. Hold CARE TEAM ASSISTANT. Monica Marquez MD April 16, 2017 11:22
--- NOTE | 2017-04-16 11:40 | PCM.PNMED ---
Subjective Date of Service April 16, 2017 Subjective Caitie Monet is an 86 year old woman with past medical history significant for hypertension, breast cancer in remission, hyperlipidemia, and diverticular disease who presented to [facility] from [facility] due to hyperkalemia and acute kidney injury. The patient is currently under treatment for C. Difficile colitis, acute kidney injury and a UTI and chronic right hydronephrosis and acute LGIB. Hospital day #6 Overnight: The patient again had maroon stool early this morning. She was given 2 more units of PRBC. Today: The patient states that she feels quite weak but this is not the worst ever felt in her life. She denies any abdominal pain, fever, chills, nausea. She only notes feeling distended and bloated and full of gas. The remainder review of systems is negative except as noted above. Exam Vital Signs Vital Sign - Last Date Time Temp Pulse Resp B/P Pulse Ox O2 Delivery O2 Flow Rate FiO2 04/16/17 09:05 36.7 95 106/56 04/16/17 09:05 16 96 Nasal Cannula 3.50 Intake and Output 04/15/17 04/15/17 04/16/17 Cumulative From/Thru 15:00 23:00 07:00 04/11/17 17:35 - 04/16/17 06:05 Intake Total 1416 ml 2065 ml 2170 ml 56615 ml Output Total 700 ml 450 ml 6250 ml Balance 1416 ml 1365 ml 1720 ml 39386 ml Intake Oral 320 ml 2790 ml IV Total 776 ml 1440 ml 1677 ml 86877 ml TPN/PPN 493 ml 493 ml Packed Cells 640 ml 1266 ml FFP 305 ml 305 ml Output Urine Total 700 ml 450 ml 4550 ml Stool Total 1700 ml # Bowel Movements 3 3 17 Exam General: No acute distress, thin elderly female sitting up in hospital. Forgetful but alert and oriented. HEENT: Normocephalic, atraumatic. External ears without defect. Pupils equal, round, and reactive to light and accommodation. Anicteric sclerae, moist conjunctivae, and no lid lag. Oropharynx free of erythema and cobble stoning with moist mucosa. Neck: Supple with full range of motion. No jugular venous distension. No lymphadenopathy or thyromegaly. Cardiovascular: Regular rate and rhythm with soft systolic murmur. Pulmonary: Expiratory wheeze noted, more prominent on the left. Normal respiratory effort with no use of accessory muscles. Abdomen: Soft, mildly distended. No hepatosplenomegaly or masses appreciated. No tenderness to palpation. Hyperactive bowel sounds. . : [place] in place. Draining yellow urine. Extremities: No clubbing, cyanosis, edema, or lymphadenopathy appreciated. Half -and-half nails noted. Skin: Normal temperature, turgor, and texture; no rash, ulcers, or subcutaneous nodules appreciated. Neurological: Cranial nerves grossly intact. Normal muscle strength, tone, and bulk. Asterixis noted, unchanged from yesterday. Psychiatric: Normal mood and affect. Alert and oriented to person, place, and time. IVs and Medications Medications Reviewed: Medications were reviewed in detail Lab and Diagnostics Result Diagram: 04/16/17 0450 04/15/17 0117 X-Rays, CTs and MRIs US RENAL SONOGRAM IMPRESSION: Multiple mildly complex right renal cysts, some of which demonstrate internal septations. Recommend continued surveillance with renal ultrasound or CT. Given the absence of any relevant prior comparison studies, consider initial workup with CT (in the non-emergent setting). Large postvoid residual. Internal bladder echoes, presumably intraluminal debris. Renal cortical thinning/atrophy Dictated by: Lamin Stack M.D. on 04/11/2017 at 19:32 CT ABDOMEN AND PELVIS WITHOUT CONTRAST IMPRESSION: 1. Severe right hydronephrosis without hydroureter suggesting a UPJ obstruction. No radiopaque stones identified. 2. Concentric bladder wall thickening of a distended urinary bladder compatible with cystitis. Recommend correlation with urinalysis. 3. Diverticulosis without acute diverticulitis. 4. Small bilateral pleural effusions with bibasilar consolidation suspicious for pneumonia. The findings also raise the possibility of aspiration. Dictated by: Andrade Livingston M.D. on 04/12/2017 at 13:22 CT ABDOMEN AND PELVIS WITHOUT CONTRAST IMPRESSION: 1. Segmental wall thickening of the sigmoid colon increased from the prior study consistent with a nonspecific colitis, infectious, inflammatory, or ischemic in etiology. An underlying mass is also not excluded. 2. Segmental wall thickening of the duodenum consistent with a nonspecific duodenitis, likely infectious or inflammatory. 3. Severe dilatation of the right renal collecting system redemonstrated likely due to a UPJ obstruction. 4. Concentric wall thickening of the bladder consistent with a nonspecific cystitis. Recommend correlation with urinalysis. Dictated by: Andrade Livingston M.D. on 04/15/2017 at 13:50 Assessment & Plan Caitie Monet is an 86 year old woman with past medical history significant for hypertension, breast cancer in remission, hyperlipidemia, and diverticular disease who presented to [facility] from [facility] due to hyperkalemia and acute kidney injury. The patient is currently under treatment for C. Difficile colitis, acute kidney injury and a UTI and chronic right hydronephrosis and acute LGIB. Hospital day #6 Acute lower GI bleed in the setting of C. Diff colitis and diverticulitis in a uremic patient with a component of chronic anemia from CKD, not present on admission, active -S/P 6 units of PRBCs and one unit of FFP as well. DDAV x2. -The patient put out approximately 1700 cc of maroon stool overnight on 04/15 and again had bloody stools overnight on 04/16 -CT of abdomen/pelvis with PO contrast demonstrated worsening colitis -GI consulted, plan to do colonoscopy today Acute injury kidney injury secondary to dehydration secondary to C. difficile colitis in a patient with CKD with a chronic right UPJ, present on admission, active. Improving. -Nephrology consulted, appreciate recommendations and expertise. We will follow. Likely patient will need dialysis soon. -IVF per nephrology -Urology consulted for right hydronephrosis and probable UPJ obstruction. Upon review of past abdominal U/S patient was noted to have hydronephrosis about one year ago. C. difficile colitis, present on admission, active. -PO vancomycin and IV Flagyl. Antibiotic day 5. -CT showing reticulitis as well. -Infectious disease consulted. We will follow recommendations. Urinary tract infection in a patient with a history of recurrent UTIs, present on admission, active -Patient noted to have a very dirty urine and has bladder retention as well -May be due to cross-contamination from diarrhea with stasis -Sarahn, day 5. Infectious disease consulted. -Repeat UA with culture obtained with no growth Possible toxic encephalopathy with asterixis, present on admission, active -May be due to uremia as well. -No history of cirrhosis noted per patient's report. CT of abdomen does not reveal a cirrhotic appearing liver. -Ammonia is elevated. Per family the patient is mildly more altered than her baseline. -We will continue to monitor mentation Hyperkalemia, present on admission, resolved. Hypertension, chronic -Hold blood pressure medications at this time Hypovolemic hyponatremia - stable Disposition: The patient will likely be in the hospital for 2-3 more days as she is evaluated and treated for the above problems. VTE Mechanical Devices: Venous Foot Pump Resuscitation Status: CPR: Attempt Resuscitation Attending Statement Patient seen and examined with house staff. Agree with all attached documentation. Carmelina Lazcano DO April 16, 2017 10:00 Krishna Vyas MD April 22, 2017 08:03
--- NOTE | 2017-04-16 12:28 | PCM.CHPMED ---
Subjective Date of Service: April 16, 2017 Primary Physician: Admitting Physician: Bert Padilla MD Primary Care Physician: Ángel Vallecillo MD Attending Physician: Bert Padilla MD Chief Complaint: Chief Complaint: Ground-level fall History of Present Illness: 86-year-old female with history of breast cancer, hypertension, and diverticular disease who presented [facility] from [place] due to hyperkalemia and acute kidney injury with a creatinine greater than 8, with ongoing consult from Dr. York of nephrology. Patient was diagnosed with diverticulitis likely secondary to ongoing C. difficile infection, diagnosed by PCR. The patient has had ongoing diarrhea without bleeding which lead to insertion of a FMS . Apparently, after a couple days the FMS came out and after reinsertion of the FMS later that day, the patient began having pramod bloody bowel movements. The blood is described by nursing as maroon with clots, with resulting bouts of hypotension. The patient has been transfused 4 units of PRBCs to stabilize her and this initially worked. However overnight the patient went from 10.7 down to 6.8. Blood was being transfused this morning. Patient denies any dizziness, lightheadedness, fever, nausea, chills, abdominal pain, chest pain, or shortness of breath. She denies using alcohol regularly and denies all use of NSAIDs. GI was consulted for colonoscopy. Review of Systems: See history of present illness PMH Past Medical History 1. Hypertension. 2. Ischemic colitis. 3. Fractured femur in the past. 4. Breast cancer. Treated in the past. 5. Diverticulosis. 6. Cholecystectomy. Hx Any Other Health Problems?: NoHx Diabetes: No Home Medications 1. Amlodipine 10 daily. 2. Lisinopril 20 daily. 3. HCTZ 25 daily. 4. Aspirin 81 daily. 5. Gabapentin. Allergies: Coded Allergies: codeine (Verified Allergy, Intermediate, rash, 04/11/17) chlorhexidine (Verified Allergy, Unknown, pt unable to recall reaction, ) Uncoded Allergies: seeds (Adverse Reaction, Unknown, pt has Diverticulitis , 04/11/17) Family History Family History Both parents but she does not know why; she is from [place] Social History Hx Alcohol Use: Yes ("I like a glass of wine once in a while")Hx Substance Use : No Exam Vital Signs Vital Sign - Last Date Time Temp Pulse Resp B/P Pulse Ox O2 Delivery O2 Flow Rate FiO2 04/16/17 11:34 36.9 100 15 110/58 97 Nasal Cannula 3.50 Intake and Output 04/15/17 04/15/17 04/16/17 Cumulative From/Thru 14:59 22:59 06:59 04/11/17 17:35 - 04/16/17 06:05 Intake Total 1416 ml 2065 ml 2170 ml 93602 ml Output Total 700 ml 450 ml 6250 ml Balance 1416 ml 1365 ml 1720 ml 72112 ml Intake Oral 320 ml 2790 ml IV Total 776 ml 1440 ml 1677 ml 67899 ml TPN/PPN 493 ml 493 ml Packed Cells 640 ml 1266 ml FFP 305 ml 305 ml Output Urine Total 700 ml 450 ml 4550 ml Stool Total 1700 ml # Bowel Movements 3 3 17 General: Alert, Oriented X3, Cooperative Head: Normal Eyes: PERRLA Chest & Lungs: Chest Wall Normal, Clear to auscultation & percussion Cardiovascular: Exam Unremarkable, Regular Rate/Rhythm Abdomen: Non-tender, Distended, Normoactive bowel tones Extremities: No heel ulcers present, Edema Neurological: Grossly Neurologically Intact Lab and Diagnostics Result Diagram: 04/16/17 0450 04/15/17 0117 Assessment & Plan Assessment 86-year-old female with severe and ongoing GI bleed was initially admitted to the hospital with a ground-level fall and kidney failure that appears to be chronic as the patient is pretty well compensated. Patient's bleeding is likely multifactorial including uremic bleeding setting of diverticular disease with ongoing colitis from C. difficile and possible trauma from FMS. Patient is currently not on aspirin or any blood thinners and she has not been on NSAIDs recently. Current medications are metronidazole, Zosyn, and oral vancomycin for the C. difficile infection. Another is low suspicion that this is ischemic injury when I had noted a lactic acid and without result. Will go ahead and have the patient drink as much GoLYTELY as possible over the next 6 hours and, as this is an emergent procedure, plan a colonoscopy this afternoon around 1600. Patient should remain nothing by mouth after the procedure. Thank you for allowing us to participate in the care of this patient. Problems: VTE Mechanical Devices: Venous Foot Pump Resuscitation Status: CPR: Attempt Resuscitation Attending Statement patient seen and examined agree with resident physician note will plan for urgent endoscopy today after colon prep Ernie Nathan DO April 16, 2017 12:28 Wayne Xie MD April 19, 2017 10:13
[2017-04-16 12:56] LABS: BASOPHILS % (AUTO) 0.9 % (0-3); EOSINOPHILS % (AUTO) 2.3 % (0-5); MONOCYTES % (AUTO) 6.7 % (4-12); Mean Corpuscular Hemoglobin 28.3 pg (27.0-35.0); Mean Corpuscular Volume 82.9 fL (81-100); NEUTROPHILS % (AUTO) 74.2 % (40-74); Platelet Count 123 bil/L (150-400)
--- NOTE | 2017-04-16 13:41 | PROG NOTE ---
[address] [address] PROGRESS NOTE PATIENT: LAURA SANABRIA : 1930 MR#: [id number] ADMIT: 04/11/2017 JOB ID: [id number] DATE: 04/16/2017 INFECTIOUS DISEASE FOLLOW UP NOTE: REASON FOR FOLLOWUP: C difficile complicated by renal failure and now with rectal bleeding apparently secondary to placement of an FMS two days ago. Overnight, the patient has had additional bleeding develop per rectum which is felt to be secondary to the FMS system that was attempted to be placed two days ago. Aside from this bleeding, the patient says she feels okay except weak. She denies any fevers or chills. She has no pulmonary symptoms and actually states she has no abdominal pain. PHYSICAL EXAMINATION: Reveals a pale, elderly woman, in no acute distress. Lying supine in her bed. Temperature 36.6, pulse 96, respiratory rate 16, blood pressure 111/54. She is saturating well on 3 L. She is pleasant, awake and conversational. Conjunctivae rather pale. Skin rather pale. Lungs clear. Cardiac tones regular rate and rhythm. She is not particularly tachycardic with pulse in the 90s. Abdomen is fairly soft, nontender and the distention seen previously has improved somewhat. She is still bleeding per rectum and there are plans for her to have colonoscopy this morning. LABORATORIES: Include hematocrit 20 today and she is getting more blood right now secondary to the fact it dropped from 30 yesterday to 20 in hematocrit overnight. Today's creatinine is unfortunately not back. Yesterday's was 8.62. Micro studies include negative blood cultures from the as well as the positive C difficile from the . The abdominal pelvic CT scan done yesterday morning showed a segmental wall thickening of the sigmoid colon which is increased from the prior study consistent with her C difficile colitis. Nonspecific duodenitis is also seen and the UPJ obstruction causing the right hydronephrosis is once again noted. IMPRESSION: This is a complex case of a woman with severe C. difficile complicated by renal failure, which may have required dialysis. The patient did seem to be improving. for a bit and now has developed additional rectal bleeding secondary to the failed attempt to place an FMS two days ago. Her other ongoing problem is the urinary tract infection which I think is being adequately managed with Zosyn. RECOMMENDATIONS: 1. Will continue with IV Flagyl and oral vanc for her C. difficile. 2. Will continue with Zosyn for a short course of about 7-10 days for her UTI. 3. Will continue to closely follow this complex patient with you.
[2017-04-16] MEDS ORDERED: Phenylephrine/NS-PF 100 mCg/mL 5 mL Syringe IVPUSH ONE (14:38)
[2017-04-16] MEDS ORDERED: EPHEDrine/NS 5 mg/mL 5 mL Syringe ONE (14:38)
[2017-04-16] MEDS ORDERED: 0.9% Sodium Chloride 500 ML IV ONE (18:05)
--- NOTE | 2017-04-16 19:45 | NUR ---
GI bleed Cardiac: Pt denies CP, Tele: SR 80s-100s, 2 of 2 PRBCs started this AM, Pt vitals stable and is tolerating well. Resp: Pt denies SOB, SPO2 mid 90s on 3.5L NC. GI/: multiple loose maroon stools this AM, colonoscopy and golytely ordered. Pt only able to finish half of prep by 16:30, discussed with Endo and ordered to give two tap water enemas, colonoscopy scheduled for 19:00. Upon going to prep for the first enema, the pt was found to have had a large amount of pramod red blood diarrhea. Pt had been getting checked and cleaned frequently due to prep, till this point pt always knew when she needed to be cleaned up. Dr sylvester paged, stat H&H ordered as well as 500ml NS bolus. BP stable, Bolus given and endo paged for further instructions. Endo instructed to proceed with two enemas. Both were administered, but both in fairly quick succession due to shift change time constraints. Noc nurse informed. Pt checked after report given and still having small amounts of red blood discharge. Neuro: A&Ox3, LUJAN.
[2017-04-16] MEDS ORDERED: Pantoprazole Inj 80 MG in 0.9% Sodium Chloride 80 ML IV STA (22:59)
[2017-04-16] MEDS ORDERED: Pantoprazole 4 mg/mL 10 mL Inj IVPUSH ONE (23:00)
[2017-04-16] MEDS ORDERED: Lactated Ringer's 1,000 ML IV SCH (23:13)
[2017-04-16] MEDS ORDERED: Lactated Ringer's 500 ML IV PRN (23:13)
[2017-04-16] MEDS ORDERED: Albuterol 2.5 mg/3 mL Inhalation Solution NEB ONE (23:14)
[2017-04-16] MEDS ORDERED: Dexamethasone 4 mg/mL Inj IVPUSH PRN (23:15)
[2017-04-16] MEDS ORDERED: fentaNYL-PF 50 mCg/mL 2 mL Inj IVPUSH PRN (23:15)
[2017-04-16] MEDS ORDERED: HYDROmorphone 1 mg/mL Inj IVPUSH PRN (23:15)
[2017-04-16] MEDS ORDERED: Ondansetron 2 mg/mL 2 mL Inj IVPUSH PRN (23:15)
[2017-04-16] MEDS ORDERED: Phenylephrine 10,000 mCg/mL Inj IVPUSH PRN (23:15)
[2017-04-16] MEDS ORDERED: EPHEDrine Sulfate 50 mg/mL Inj IVPUSH PRN (23:15)
[2017-04-16] MEDS ORDERED: MetoCLOpramide 5 mg/mL 2 mL Inj IVPUSH PRN (23:15)
[2017-04-16] MEDS ORDERED: Lactated Ringer's 300 ML IV ONE (23:37)
--- NOTE | 2017-04-16 23:50 | PCM.HPANE ---
Patient Data Date of Service: April 16, 2017 Surgeon Admitting Provider:Bert Padilla MD Attending Provider:Bert Padilla MD Primary Care Physician:Ángel Vallecillo MD Other Provider: Reason for Visit Acute Renal Failure Ht/WT & BMI Height (Feet): 5 Height (Inches): 2.00 Weight (Kilograms): 68.000 Body Mass Index 27.00 Allergies Coded Allergies: codeine (Verified Allergy, Intermediate, rash, 04/11/17) chlorhexidine (Verified Allergy, Unknown, pt unable to recall reaction, ) Uncoded Allergies: seeds (Adverse Reaction, Unknown, pt has Diverticulitis , 04/11/17) Past Anesthesia History Anesthesia History: Denies:: Abnormal Airway, Anesthesia Reactions, Difficult Intubation, Fam Anesthesia Reaction, Fam Malignant Hypertherm, Malignant Hyperthermia Diabetes History Hx Diabetes?: No MRSA MRSA: No Medications Hypertension Medication: Yes Home Meds Incl Beta Jhony: No Reported Medications Mv,Ca,Min/Iron Fum/FA/Vit K (Multi For Her Tablet)1 Each Tablet1 Each PO DAILY 04/11/17 Ascorbate Calcium (Vitamin C)500 Mg [id number] Mg PO DAILY 04/11/17 Ferrous Sulfate, Dried (Iron)159 Mg Tablet.er65 Mg PO DAILY 04/11/17 Psyllium Husk (Metamucil)0.4 Gram Capsule3 Capsule PO HS 04/11/17 Lactobacillus Acidophilus (Acidophilus)1 Each Tablet1 Each PO DAILY 04/11/17 Cholecalciferol (Vitamin D3) (Vitamin D3)2,000 Unit Capsule2,000 Unit PO DAILY 04/11/17 Aspirin 81 Mg Ooyqjq16 Mg PO DAILY Ref 0 04/11/17 Gabapentin 100 Mg Duwfuro642 Mg PO DAILY 30 Days Ref 0 04/11/17 Hydrochlorothiazide 12.5 Mg Ezcplaa17.5 Mg PO Q2DAY 30 Days Ref 0 04/11/17 Lisinopril 20 Mg Olrjlj24 Mg PO DAILY 30 Days Ref 0 04/11/17 Felodipine ER 10 Mg Tab.er.24h10 Mg PO DAILY Ref 0 04/11/17 History History of ENT Problems?: Yes HEENT History: Positive for:: Sinus Problem ("I've had my share") Denies:: Cataracts Dysphagia Glaucoma Denture Type: None Teeth Condition: Within Normal Limits Hx of Heart Problems?: Yes Cardiovascular History: Positive for:: Edema ("I have that a lot") Hypertension Denies:: Cardiac Surgery Chest Pain Congestive Heart Failure Heart Murmur Irregular Heartbeat Pacemaker Thrombophlebitis Hx of Respiratory Problem?: Yes Respiratory History: Positive for:: Pneumonia Denies:: Asthma COPD Chest Surgery Dyspnea Emphysema Hemoptysis Tuberculosis Other History/Comment daughter in law states that she has been coughing today but has not been able to get anything up Hx Neurologic Problems?: Yes Neurological History: Positive for:: Headaches Denies:: Alzheimer's Disease CVA Dementia Dizziness Parkinson's Disease Seizures Hx of GI Problems?: Yes Gastrointestinal History: Positive for:: Gastrointestinal Bleeding Hx of Problems?: Yes Genitourinary History: Positive for:: Kidney Stones Urinary Tract Infection Denies:: HX of Hemodialysis HX of Peritoneal Dialysis: No Female Hx: Positive for:: Problems with Breasts? (lumpectomy 2011) Denies:: Currently Endometriosis Pelvic Inflammatory Hx Musculoskeletal Problems?: Yes Musculoskeletal History: Positive for:: Musculoskeletal Trauma (broken femur) Denies:: Back Injury Joint Replacement Hx of Psycho/Social Problems?: Yes Psycho Social History: Positive for:: Anxiety Hx Depression Denies:: Bipolar Disorder Suicide Attempt Hx Surgeries?: Yes (lumpectomy, hip repair) Hx Any Other Health Problems?: No Other History: Positive for:: Cancer (lumpectomy) Hospitalization (surgeries) Denies:: Thyroid Disease History Blood Transfusions: Positive for:: Accept Blood Products? Blood Transfusions Denies:: Blood Transfuse Reaction Hx Diabetes: No Hx Alcohol Use: Yes ("I like a glass of wine once in a while")Hx Substance Use : No Smoking Status: Former Smoker Stop/Bang Treated for Sleep Apnea?: No Do You Have a CPAP Machine?: No S-Snoring: Do You Snore Loudly: No T-Tired: feel tired, fatigued: Yes O-Obsered: Observed not breath: No P-Blood Pressure: treated: Yes B- Body Mass Index > 35 kg/m2: No A- Age over 50: Yes N- Neck Large Circumference: No G- Gender Male: No MIKAYLA Total Score: 3 Risk Assessment Category Category 1A: Patient has history of documented sleep apnea, and HAS NOT received any narcotic, sedative or anesthesia administration during this stay. Category 1B: Patient has history of documented sleep apnea, and HAS received any narcotic , sedative or anesthesia administration during this stay Category 2: Patient has SUSPECTED Obstructive Sleep Apnea, and HAS received any narcotic , sedative or anesthesia administration during this stay. Category 3: Patient has SUSPECTED Obstructive Sleep Apnea and HAS NOT received narcotic, sedative or anesthesia administration during this stay. Category 4: Outpatient in Procedural Areas with known sleep apnea or who screen positive for High Risk via the STOP/BANG questionnaire. Exam Exam Vital Signs Vital Signs Date Time Temp Pulse Resp B/P Pulse Ox O2 Delivery O2 Flow Rate FiO2 04/16/17 23:20 112 16 121/48 100 Simple Mask 8 04/16/17 23:15 36.8 117 16 105/36 97 Simple Mask 8 General Appearance: Alert, Oriented X3, Cooperative HEENT/AIRWAY: MP 3 Lungs: Diminished Heart: Exam Unremarkable Meds/Labs/Diagnostics Admission Meds Current Medications Desmopressin Acetate 20 mcg/ Sodium Chloride 55 ml @ 110 mls/hr ONCE ONCE IV Last administered on 04/16/17 10:12; Start 04/16/17 at 07:25; Stop 04/16/17 at 08:22; Status DC Calcium Gluconate 9.3 meq/Dextrose/ Water 120 ml @ 60 mls/hr ONCE ONCE IV Last administered on 04/16/17 11:55; Start 04/16/17 at 07:25; Stop 04/16/17 at 09:24; Status DC Metronidazole/ Sodium Chloride/ Premix (Flagyl Inj/IV Premix) 100 ml @ 200 mls/ hr Q8 IV Last administered on 04/16/17 17:32; Start 04/16/17 at 08:30 Polyethylene Glycol/ Electrolytes 4000 ml 4,000 ml ONCE ONCE PO Last administered on 04/16/17 11:14; Start 04/16/17 at 10:05; Stop 04/16/17 at 10:09 ; Status DC Lactated Ringer's (Lr) 300 ml @ ud STK-MED ONCE IV Last administered on 23:37; Start 04/16/17 at 23:37; Stop 04/16/17 at 23:40; Status DC Labs Test 04/11/17 17:00 04/12/17 02:55 04/13/17 02:25 04/14/17 02:25 Norovirus 1 (PCR) Negative (Negative) Norovirus 2 (PCR) Negative (Negative) Uric Acid 11.7mg/dL (2.6-7.2) Iron Level 17ug/dL (35-150) Total Iron Binding Capacity 134ug/dL (250-450) Percent Iron Saturation 13%sat (15-50) Unsaturated Iron Binding 116.9ug/dL Ammonia 65ug/dL (18-53) Procalcitonin 2.72ng/mL (0.00-0.08) Prothrombin Time 11.9sec (8.1-12.5) Prothromb Time International Ratio 1.11ratio Activated Partial Thromboplast Time 37.2sec (22.8-33.0) Osmolality 308 (275-300) Ionized Calcium (Calculated) 3.33mg/dL (3.5-5.2) Phosphorus Level 5.9mg/dL (2.5-4.9) Ferritin 534ng/mL (13-150) Metamyelocytes % 1% (0-0) Myelocytes % 1% (0-0) Test 04/14/17 08:22 04/15/17 01:17 04/16/17 12:45 04/16/17 19:29 Urine Color Straw (YELLOW) Urine Appearance Turbid (CLEAR,HAZY) Urine pH 5.5 (5.0-8.0) Urine Specific [place] 1.015 (1.003-1.035) Urine Protein 100mg/dL (NEG,TRACE) Urine Glucose (UA) Negativemg/dL (NEGATIVE) Urine Ketones Tracemg/dL (NEGATIVE) Urine Occult Blood Large (NEGATIVE) Urine Nitrite Negative (NEGATIVE) Urine Bilirubin Negative (NEGATIVE) Urine Urobilinogen Normalmg/dL (NORMAL) Urine Leukocyte Esterase Moderate (NEGATIVE) Urine RBC 3-10/hpf (0-2) Urine WBC Packed/hpf (0-5) Urine Epithelial Cells Occasional/hpf (NONE-MOD) Urine Crystals None seen (NONE SEEN) Urine Bacteria Moderate/hpf (NONE-FEW) Urine Hyaline Casts None/lpf (NONE) Urine Granular Casts None seen (NONE SEEN) Urine Waxy Casts None seen (NONE SEEN) Urine Red Blood Cell Casts None seen (NONE SEEN) Urine White Blood Cell Casts None seen (NONE SEEN) Urine Mucus None seen (None Seen) Urine Trichomonas None seen (NONE SEEN) Urine Yeast None (NONE SEEN) Urinalysis Comment None Urine Culture Reflexed Indicated Band Neutrophils % 4% (1-5) White Blood Count 9.6th/mm3 (3.8-10.1) Red Blood Count 3.22mil/mm3 (3.90-5.20) Mean Corpuscular Volume 82.9fL (81-100) Mean Corpuscular Hemoglobin 28.3pg (27.0-35.0) Mean Corpuscular Hemoglobin Concent 34.1% (32.0-37.0) Red Cell Distribution Width 14.8% (12.3-15.4) Platelet Count 123bil/L (150-400) Neutrophils (%) (Auto) 74.2% (40-74) Lymphocytes (%) (Auto) 13.3% (14-46) Monocytes (%) (Auto) 6.7% (4-12) Eosinophils (%) (Auto) 2.3% (0-5) Basophils (%) (Auto) 0.9% (0-3) Sodium Level 136mEq/L (134-144) Potassium Level 4.1mEq/L (3.5-5.2) Chloride Level 99mEq/L (97-108) Carbon Dioxide Level 19mmol/L (18-29) Blood Urea Nitrogen 82mg/dL (8-27) Creatinine 6.86mg/dL (0.57-1.00) Estimat Glomerular Filtration Rate 8mL/min (>59) Glucose Level 137mg/dL (60-99) Lactic Acid Level 0.7mmol/L (0.4-2.0) Calcium Level 7.3mg/dL (8.5-10.1) Total Bilirubin 0.2mg/dL (0.0-1.2) Aspartate Amino Transf (AST/SGOT) 21U/L (0-50) Alanine Aminotransferase (ALT/SGPT) 16U/L (0-32) Alkaline Phosphatase 43U/L (25-165) Total Protein 3.8g/dL (6.4-8.4) Albumin 1.7g/dL (3.4-5.0) Hemoglobin 7.3g/dL (12.0-15.6) Hematocrit 21.3% (35.0-46.0) Plan Impression Patient chart reviewed, patient interviewed and anesthestic plan with risks, benefits, and alternatives discussed, and informed consent obtained. NPO per Anesth. Guidelines: Yes ASA Physical Status: ASA3 Plus Emergency Anesthetic Plan: MAC Bene/Risks/Altern/Consents: Yes HP Complete Prior to Induction: Yes Ming Varma MD April 16, 2017 23:50
--- NOTE | 2017-04-16 23:59 | PCM.ANEP1 ---
Post Anesthesia PACU Phase 1 Assessment Vital Signs Vital Signs Date Time Temp Pulse Resp B/P Pulse Ox O2 Delivery O2 Flow Rate FiO2 04/16/17 23:20 112 16 121/48 100 Simple Mask 8 04/16/17 23:15 36.8 117 16 105/36 97 Simple Mask 8 Anesthetic Administered: GA Level of Alertness: Awake, talking Pain: No Nausea or Vomiting: No CV Function and Hydration: Yes Airway Device: Oxygen Delivery: Nasal Cannula Lungs: Diminished, Wheezes PACU Phase 2 Assessment Complications: No Follow up Care: No Patient Instructions Provided: Yes Comments I converted to GA intra procedure due to sounds of gurgling. I did not see any fluid but was able to suction out of her oral pharynx about 5ml of fluid ( estimated because at the end of the procedure, I had suctioned a total of 20ml of fluid). There certainly could have been an aspiration event. I obtained a CXR in PACU, and it may show aspiration, but certainly not a large volume. She did have some wheezing in PACU, but was resolved with albuterol. She is leaving PACU on 3L NC with sats in the mid 90s, which is how she presented to me. She appears unlabored. I did discus with her daughter in law my concerns of possible aspiration and she understands that in a patient this sick, any event could be very serious. I also signed out the her primary physician of possible aspiration event, and to her RN and have asked the RT evaluate her closely tonight. Ming Varma MD April 16, 2017 23:59
[2017-04-17] VITALS (13 sets, daily range): BP systolic 98–136; BP diastolic 46–62; PULSE 94–105; RESP 16–20; O2SAT 92–97
[2017-04-17 00:43] LABS: Mean Corpuscular Hemoglobin 28.7 pg (27.0-35.0); Mean Corpuscular Volume 83.1 fL (81-100)
[2017-04-17] MEDS: metroNIDAZOLE Inj 500 MG in IV Premix 1 EACH IV SCH ×3 (00:43→17:31)
[2017-04-17] MEDS: 0.9% Sodium Chloride 250 ML IV SCH ×3 (00:51→10:45)
[2017-04-17] MEDS: Vancomycin 125 mg Oral Capsule PO SCH ×4 (01:10→17:31)
[2017-04-17] MEDS ORDERED: Albuterol 2.5 mg/3 mL Inhalation Solution NEB ONE (01:59)
[2017-04-17] MEDS: Piperacillin-Tazo 3.375 Gm Inj 3.375 GM in Dextrose 5% Minibag Plus 50 ML IV SCH ×2 (02:55→12:55)
--- NOTE | 2017-04-17 06:00 | NUR ---
NOC PT went to endo around 194 last avani. Returned around 2344. PT had to receive general anasthesia and there was concern for likely aspiration per anasthesia. RC saw pt and gave her a neb for audible wheezes. PT is currently on 3lNC. There have been no indications of bleeding since her return and pt will be able to start on clears this am. PT denies any pain. Last H/H stable after receiving 2UPRBC in endo. Reportedly there was a large ulcer found that Dr Willett reports was chemically cauterized when clips were not secured. [place] in place and continues to have cloudy urine. PT V/S have been stable. NSR. Receiving IV and po abx. ON precautions for cdiff. PT is on a protonix gtt and serial h/h are every 8 hours. WIll CTM.
--- NOTE | 2017-04-17 07:26 | NUR ---
NUTRITION FOLLOW-UP: Assess: 86 YO F admitted with C. diff colitis complicated by acute renal failure, UTI, and dehydration, now with rectal bleeding apparently secondary to placement of an FMS three days ago. The potential for dialysis continues to exist. Diet advanced to clear liquids status post colonoscopy. PO intake has been poor since admit x 6 D, 15% - 25% trays. Code status: full. PMHX: HTN, ischemic colitis, fracture femur, breast cancer, diverticulosis. DIET: Renal. PO 15% - 25% trays. LABS: BUN 82, Cr 6.86, Glu 137, Ca 7.3, Alb 1.7. MEDICATIONS: Reviewed. GI: BM x 8 (04/16). C.diff positive. SKIN: No issues noted. ANTHROPOMETRICS: Wt: 70.1 kg, BMI 28.0 kg/m2, Admit wt: 58.3 kg. ESTIMATED NEEDS: ARF Calories: 1098-7362 kcal/day (25-35 kcal/kg BW) Protein: 35-47 g/day (0.6-0.8 g/kg BW) NUTRITION DIAGNOSIS: 1) Inadequate oral intake related to decreased ability to consume sufficient energy as evidenced by poor PO intake X 6 days. 2) Increased nutrient needs related to acute renal failure, as evidenced by possible requirement for hemodialysis. INTERVENTION: 1) Will add [place] pre-renal supplement to current diet to encourage adequate nutrition. 2) Will adjust estimated needs if pt require dialysis. MONITOR/EVALUATE: PO intake, diet tolerance, dialysis, labs, GI/nutrition status. Follow per moderate nutrition risk guidelines.
--- NOTE | 2017-04-17 09:24 | DRSVH ---
PROCEDURE: X-RAY CHEST ONE VIEW, PORTABLE ([id number]) INDICATIONS: concern for possible aspiration during EGD TECHNIQUE: One view of the chest was acquired. COMPARISON: Outside Film, CR, XR CHEST 1VW (PORTABLE), 04/11/2017, 11:30. FINDINGS: Surgical changes and devices: None. Lungs and pleura: Left basilar hazy opacity and cannot exclude small layering left pleural effusion. There is retrocardiac consolidation which appears worse since 04/11/17. No pneumothorax. Diffuse inter stitial disease Mediastinum: Mediastinal contours appear normal. Heart size is normal. Bones and chest wall: Bilateral rib fracture deformities as before IMPRESSION: Interval worsening of retrocardiac consolidation (potentially aspiration) since 04/11/17. Possible small layering left pleural effusion Chronic diffuse interstitial disease as before. Dictated by: Lamin Stack M.D. on 04/17/2017 at 9:19 Approved by: Lamin Stack M.D. on 04/17/2017 at 9:23
[2017-04-17 09:34] LABS: BASOPHILS % (AUTO) 0.7 % (0-3); EOSINOPHILS % (AUTO) 1.1 % (0-5); MONOCYTES % (AUTO) 5.3 % (4-12); Mean Corpuscular Hemoglobin 28.9 pg (27.0-35.0); Mean Corpuscular Volume 82.7 fL (81-100); NEUTROPHILS % (AUTO) 79.8 % (40-74); Platelet Count 110 bil/L (150-400)
--- NOTE | 2017-04-17 10:40 | PCM.PNMED ---
Subjective Date of Service April 17, 2017 Subjective GI progress note Yesterday the patient underwent EGD evaluation with identification of a large ulcer that was cauterized by Dr. Xie. Overnight the patient's hemoglobin stabilized at 10.7. Patient does not remember having the scope states that she is feeling much better today. Denies review of systems Exam Vital Signs Vital Sign - Last Date Time Temp Pulse Resp B/P Pulse Ox O2 Delivery O2 Flow Rate FiO2 04/17/17 09:33 36.4 105 18 107/52 95 Nasal Cannula 3.00 Intake and Output 04/16/17 04/16/17 04/17/17 Cumulative From/Thru 15:00 23:00 07:00 04/11/17 17:35 - 04/17/17 06:04 Intake Total 1320 ml 2625 ml 200 ml 94580 ml Output Total 1100 ml 300 ml 7650 ml Balance 1320 ml 1525 ml -100 ml 20324 ml Intake Oral 2275 ml 200 ml 5265 ml IV Total 760 ml 350 ml 26541 ml TPN/PPN 493 ml Packed Cells 560 ml 1826 ml FFP 305 ml Output Urine Total 1100 ml 300 ml 5950 ml Stool Total 1700 ml # Bowel Movements 5 22 Exam General: Alert, Oriented X3, Cooperative Head: Normal Eyes: PERRLA Chest & Lungs: Chest Wall Normal, Clear to auscultation & percussion Cardiovascular: Exam Unremarkable, Regular Rate/Rhythm Abdomen: Non-tender, mildly Distended, Normoactive bowel tones Extremities: No heel ulcers present, Edema Neurological: Grossly Neurologically Intact IVs and Medications Medications Reviewed: Medications were reviewed in detail Lab and Diagnostics Result Diagram: 04/17/17 0900 04/17/17 0900 X-Rays, CTs and MRIs US RENAL SONOGRAM IMPRESSION: Multiple mildly complex right renal cysts, some of which demonstrate internal septations. Recommend continued surveillance with renal ultrasound or CT. Given the absence of any relevant prior comparison studies, consider initial workup with CT (in the non-emergent setting). Large postvoid residual. Internal bladder echoes, presumably intraluminal debris. Renal cortical thinning/atrophy Dictated by: Lamin Stack M.D. on 04/11/2017 at 19:32 CT ABDOMEN AND PELVIS WITHOUT CONTRAST IMPRESSION: 1. Severe right hydronephrosis without hydroureter suggesting a UPJ obstruction. No radiopaque stones identified. 2. Concentric bladder wall thickening of a distended urinary bladder compatible with cystitis. Recommend correlation with urinalysis. 3. Diverticulosis without acute diverticulitis. 4. Small bilateral pleural effusions with bibasilar consolidation suspicious for pneumonia. The findings also raise the possibility of aspiration. Dictated by: Andrade Livingston M.D. on 04/12/2017 at 13:22 CT ABDOMEN AND PELVIS WITHOUT CONTRAST IMPRESSION: 1. Segmental wall thickening of the sigmoid colon increased from the prior study consistent with a nonspecific colitis, infectious, inflammatory, or ischemic in etiology. An underlying mass is also not excluded. 2. Segmental wall thickening of the duodenum consistent with a nonspecific duodenitis, likely infectious or inflammatory. 3. Severe dilatation of the right renal collecting system redemonstrated likely due to a UPJ obstruction. 4. Concentric wall thickening of the bladder consistent with a nonspecific cystitis. Recommend correlation with urinalysis. Dictated by: Andrade Livingston M.D. on 04/15/2017 at 13:50 Assessment & Plan 86-year-old female who is admitted due to ground-level fall and likely chronic renal failure who currently has C. difficile and severe GI hemorrhage. Today the patient is doing much better with cauterization of large ulcer on EGD yesterday. Patient's blood levels increased and we will continue to monitor these. Recommended patient have a H&H drawn around 15:00 today. We also expect that the BUN should decrease significantly after cauterization of the ulcer. The patient's renal function also seems to be improved overnight and a creatinine now on 6 range instead of 8. We will continue to follow along. For any emergent needs please feel free to contact us. VTE Mechanical Devices: Venous Foot Pump Resuscitation Status: CPR: Attempt Resuscitation Attending Statement patient seen and examined with resident physician H/h stable rectal bleeding improved , no further bright red or maroon, more black which I suspect is old blood making its way out and not continued bleeding as H/h is stable. continue PPI for total of 48 hours and continue clear liquid diet. Ernie Nathan DO April 17, 2017 10:40 Wayne Xie MD April 19, 2017 10:21
--- NOTE | 2017-04-17 11:34 | PCM.PNMED ---
Subjective Date of Service April 17, 2017 Subjective Caitie Monet is an 86 year old woman with past medical history significant for hypertension, breast cancer in remission, hyperlipidemia, and diverticular disease who presented to [facility] from [facility] due to hyperkalemia and acute kidney injury. The patient is currently under treatment for C. Difficile colitis, acute kidney injury and a UTI and chronic right hydronephrosis and acute GI bleed. Hospital day #7 Overnight: Last night the patient underwent an upper endoscopy which revealed an ulcer, per verbal report, which was cauterized. A colonoscopy could be successfully performed due to poor prep. Today: The patient states she is feeling much better this morning. She denies any abdominal pain, nausea, vomiting, chest pain or shortness of breath. The patient's son was in the room and noted that he would like her to be discharged to an assisted living facility or SNF upon discharge. The remainder review of systems is negative except as noted above. Exam Vital Signs Vital Sign - Last Date Time Temp Pulse Resp B/P Pulse Ox O2 Delivery O2 Flow Rate FiO2 04/17/17 09:33 36.4 105 18 107/52 95 Nasal Cannula 3.00 Intake and Output 04/16/17 04/16/17 04/17/17 Cumulative From/Thru 15:00 23:00 07:00 04/11/17 17:35 - 04/17/17 06:04 Intake Total 1320 ml 2625 ml 200 ml 24530 ml Output Total 1100 ml 300 ml 7650 ml Balance 1320 ml 1525 ml -100 ml 84273 ml Intake Oral 2275 ml 200 ml 5265 ml IV Total 760 ml 350 ml 84361 ml TPN/PPN 493 ml Packed Cells 560 ml 1826 ml FFP 305 ml Output Urine Total 1100 ml 300 ml 5950 ml Stool Total 1700 ml # Bowel Movements 5 22 Exam General: No acute distress, thin elderly female sitting up in hospital. Forgetful but alert and oriented. HEENT: Normocephalic, atraumatic. External ears without defect. Pupils equal, round, and reactive to light and accommodation. Anicteric sclerae, moist conjunctivae, and no lid lag. Oropharynx free of erythema and cobble stoning with moist mucosa. Neck: Supple with full range of motion. No jugular venous distension. No lymphadenopathy or thyromegaly. Cardiovascular: Regular rate and rhythm with soft systolic murmur. Pulmonary: Expiratory wheeze noted, more prominent on the left. Normal respiratory effort with no use of accessory muscles. Abdomen: Soft, mildly distended. No hepatosplenomegaly or masses appreciated. No tenderness to palpation. Hyperactive bowel sounds. Small ventral hernia noted with coughing. : Altamirano in place. Draining yellow urine. Extremities: No clubbing, cyanosis, edema, or lymphadenopathy appreciated. Half -and-half nails noted. Skin: Normal temperature, turgor, and texture; no rash, ulcers, or subcutaneous nodules appreciated. Neurological: Cranial nerves grossly intact. Normal muscle strength, tone, and bulk. Psychiatric: Normal mood and affect. Alert and oriented to person, place, and time. IVs and Medications Medications Reviewed: Medications were reviewed in detail Lab and Diagnostics Result Diagram: 04/17/17 0900 04/17/17 0900 X-Rays, CTs and MRIs US RENAL SONOGRAM IMPRESSION: Multiple mildly complex right renal cysts, some of which demonstrate internal septations. Recommend continued surveillance with renal ultrasound or CT. Given the absence of any relevant prior comparison studies, consider initial workup with CT (in the non-emergent setting). Large postvoid residual. Internal bladder echoes, presumably intraluminal debris. Renal cortical thinning/atrophy Dictated by: Lamin Stack M.D. on 04/11/2017 at 19:32 CT ABDOMEN AND PELVIS WITHOUT CONTRAST IMPRESSION: 1. Severe right hydronephrosis without hydroureter suggesting a UPJ obstruction. No radiopaque stones identified. 2. Concentric bladder wall thickening of a distended urinary bladder compatible with cystitis. Recommend correlation with urinalysis. 3. Diverticulosis without acute diverticulitis. 4. Small bilateral pleural effusions with bibasilar consolidation suspicious for pneumonia. The findings also raise the possibility of aspiration. Dictated by: Andrade Livingston M.D. on 04/12/2017 at 13:22 CT ABDOMEN AND PELVIS WITHOUT CONTRAST IMPRESSION: 1. Segmental wall thickening of the sigmoid colon increased from the prior study consistent with a nonspecific colitis, infectious, inflammatory, or ischemic in etiology. An underlying mass is also not excluded. 2. Segmental wall thickening of the duodenum consistent with a nonspecific duodenitis, likely infectious or inflammatory. 3. Severe dilatation of the right renal collecting system redemonstrated likely due to a UPJ obstruction. 4. Concentric wall thickening of the bladder consistent with a nonspecific cystitis. Recommend correlation with urinalysis. Dictated by: Andrade Livingston M.D. on 04/15/2017 at 13:50 X-RAY CHEST ONE VIEW, PORTABLE IMPRESSION: Interval worsening of retrocardiac consolidation (potentially aspiration) since 04/11/17. Possible small layering left pleural effusion Chronic diffuse interstitial disease as before. Dictated by: Lamin Stack M.D. on 04/17/2017 at 9:19 Assessment & Plan Caitie Monet is an 86 year old woman with past medical history significant for hypertension, breast cancer in remission, hyperlipidemia, and diverticular disease who presented to [facility] from [facility] due to hyperkalemia and acute kidney injury. The patient is currently under treatment for C. Difficile colitis, acute kidney injury and a UTI and chronic right hydronephrosis and acute GI bleed. Hospital day #7 Acute upper GI bleed in the setting of C. Diff colitis and diverticulitis in a uremic patient with a component of chronic anemia from CKD, not present on admission, active -S/P 8 units of PRBCs and one unit of FFP as well. DDAV x2. -The patient put out approximately 1700 cc of maroon stool overnight on 04/15 and again had bloody stools overnight on 04/16 -CT of abdomen/pelvis with PO contrast demonstrated worsening colitis -GI consulted, EGD revealed an ulcer in the upper GI tract. Patient PPI drip currently. Diet advanced to clear liquid. Acute injury kidney injury secondary to dehydration secondary to C. difficile colitis in a patient with CKD with a chronic right UPJ, present on admission, active. Improving. -Nephrology consulted, appreciate recommendations and expertise. We will follow. Likely patient will need dialysis soon. -IVF per nephrology -Urology consulted for right hydronephrosis and probable UPJ obstruction. Upon review of past abdominal U/S patient was noted to have hydronephrosis about one year ago. C. difficile colitis, present on admission, active. -PO vancomycin and IV Flagyl. Antibiotic day 6. -CT showing diverticulitis as well. -Infectious disease consulted. We will follow recommendations. Urinary tract infection in a patient with a history of recurrent UTIs, present on admission, active -Patient noted to have a very dirty urine and has bladder retention as well -May be due to cross-contamination from diarrhea with stasis -Zosyn, day 6. Infectious disease consulted. -Repeat UA with culture obtained with no growth Possible aspiration, present on admission, active -Will order speech therapy eval Possible toxic encephalopathy with asterixis, present on admission, active -May be due to uremia as well. -No history of cirrhosis noted per patient's report. CT of abdomen does not reveal a cirrhotic appearing liver. -Ammonia is elevated. Per family the patient is mildly more altered than her baseline. -We will continue to monitor mentation Hyperkalemia, present on admission, resolved. Hypertension, chronic -Hold blood pressure medications at this time Hypovolemic hyponatremia, present on admission, resolved Hypocalcemia, secondary to multiple PRBC transfusions, active. -Continue to replace. Disposition: The patient will likely be in the hospital for 2-3 more days as she is evaluated and treated for the above problems. VTE Mechanical Devices: Venous Foot Pump Resuscitation Status: CPR: Attempt Resuscitation Time spent 25 minutes Attending Statement I have seen and evaluated patient at bedside in addition to directly supervising care provided by resident physician. I agree with above documentation. Carmelina Lazcano DO April 17, 2017 10:52 Norbert Lozoya DO April 17, 2017 15:41
--- NOTE | 2017-04-17 12:06 | PCM.PNNEPH ---
Subjective Date of Service April 17, 2017 Subjective s/p EGD, a large ulcer identified and cauterized. Stable Hb throughout the night. Kidney function continues to improve. Exam Vital Signs Vital Sign - Last Date Time Temp Pulse Resp B/P Pulse Ox O2 Delivery O2 Flow Rate FiO2 04/17/17 11:51 36.9 104 16 124/60 96 Nasal Cannula 3.00 Intake and Output 04/16/17 04/16/17 04/17/17 Cumulative From/Thru 15:00 23:00 07:00 04/11/17 17:35 - 04/17/17 06:04 Intake Total 1320 ml 2625 ml 200 ml 57828 ml Output Total 1100 ml 300 ml 7650 ml Balance 1320 ml 1525 ml -100 ml 65309 ml Intake Oral 2275 ml 200 ml 5265 ml IV Total 760 ml 350 ml 27515 ml TPN/PPN 493 ml Packed Cells 560 ml 1826 ml FFP 305 ml Output Urine Total 1100 ml 300 ml 5950 ml Stool Total 1700 ml # Bowel Movements 5 22 Exam General: Frail appearance, in NAD. AAOx3. HEENT: Normocephalic, atraumatic. Dry MM, no pallor, anicteric sclerae. Neck: Supple. No jugular venous distension. No lymphadenopathy or thyromegaly. Cardiovascular: Regular rate and rhythm with soft systolic murmur. Pulmonary: Clear to auscultation bilaterally with no crackles, wheezes, or rhonchi. Abdomen: Soft, mildly distended. No hepatosplenomegaly or masses appreciated. No tenderness to palpation. Active BS. Extremities: No clubbing, cyanosis, edema. : heredia cath with clear urine. Lab and Diagnostics Result Diagram: 04/17/17 0900 04/17/17 0900 X-Rays, CTs and MRIs US RENAL SONOGRAM IMPRESSION: Multiple mildly complex right renal cysts, some of which demonstrate internal septations. Recommend continued surveillance with renal ultrasound or CT. Given the absence of any relevant prior comparison studies, consider initial workup with CT (in the non-emergent setting). Large postvoid residual. Internal bladder echoes, presumably intraluminal debris. Renal cortical thinning/atrophy Dictated by: Lamin Stack M.D. on 04/11/2017 at 19:32 CT ABDOMEN AND PELVIS WITHOUT CONTRAST IMPRESSION: 1. Severe right hydronephrosis without hydroureter suggesting a UPJ obstruction. No radiopaque stones identified. 2. Concentric bladder wall thickening of a distended urinary bladder compatible with cystitis. Recommend correlation with urinalysis. 3. Diverticulosis without acute diverticulitis. 4. Small bilateral pleural effusions with bibasilar consolidation suspicious for pneumonia. The findings also raise the possibility of aspiration. Dictated by: Andrade Livingston M.D. on 04/12/2017 at 13:22 CT ABDOMEN AND PELVIS WITHOUT CONTRAST IMPRESSION: 1. Segmental wall thickening of the sigmoid colon increased from the prior study consistent with a nonspecific colitis, infectious, inflammatory, or ischemic in etiology. An underlying mass is also not excluded. 2. Segmental wall thickening of the duodenum consistent with a nonspecific duodenitis, likely infectious or inflammatory. 3. Severe dilatation of the right renal collecting system redemonstrated likely due to a UPJ obstruction. 4. Concentric wall thickening of the bladder consistent with a nonspecific cystitis. Recommend correlation with urinalysis. Dictated by: Andrade Livingston M.D. on 04/15/2017 at 13:50 X-RAY CHEST ONE VIEW, PORTABLE IMPRESSION: Interval worsening of retrocardiac consolidation (potentially aspiration) since 04/11/17. Possible small layering left pleural effusion Chronic diffuse interstitial disease as before. Dictated by: Lamin Stack M.D. on 04/17/2017 at 9:19 Plan Impression 1. VICTOR MANUEL. - ischemic ATN with component of prerenal. - Severe right hydronephrosis noted per CT abd. - Abd US in Jul 2016 form [place] showed severely dilated right renal pelvis and dilated visualized proximal right ureter, 2.6 cm with cortical thinning without visualized filling defect or mass, suspected chronic and severe right vesicoureteral reflux disease. - improving slowing. 2. Acute anemia due to acute GIB. s/o EGD, large ulcer cauterized. 3. Complicated UTI. 4. C.diff colitis. 5. Essential HTN. 6. Normocytic anemia. 7. Hypocalcemia likely related to acute kidney injury and blood product induced hypocalcemia. Plan: - Supportive treatment. - Monitor H&H. - Keep I&O balanced. - Daily BMP. - CHAINSTITCH TUNNEL ELASTIC OPERATOR not indicated. - Avoid nephrotoxins. - Renally dose meds. Monica Marquez MD April 17, 2017 12:06
--- NOTE | 2017-04-17 13:22 | ENDO ---
[address] [address] ENDOSCOPY PROCEDURE PATIENT: LAURA SANABRIA : 1930 MR#: [id number] ADMIT: 04/11/2017 JOB ID: [id number] DATE: 04/17/2017 PROCEDURE: Esophagogastroduodenoscopy. INDICATIONS: Rectal bleeding. ANESTHESIA: Please see anesthesia note for details regarding MAC sedation and general anesthesia. INSTRUMENT USED: [id number]. PROCEDURE DETAILS: After informed consent was obtained, the patient was brought into the GI suite where she was placed on oxygen via nasal cannula and monitored with continuous pulse oximeter, telemetry, and blood pressure monitoring. A time-out was performed. Then, she was placed in a left lateral decubitus position and medications were administered for sedation. The standard esophagogastroduodenoscopy scope was inserted through the bite block and advanced without difficulty to the second portion of duodenum. FINDINGS: In the proximal portion of the first part of the duodenum, there was an ulcer that measured approximately 1 cm in width by 2 cm in length. The distal portion of the ulcer was clean based. However, at the proximal portion of the ulcer, there was what appeared to be a clot there. I injected epinephrine into the base of the ulcer, into the proximal portion and then into the distal portion. Blanching was noted. Next, I attempted to place a hemoclip on the distalmost portion of the ulcer. However, as the mucosa was indurated, the clip did not grasp the mucosa and slipped. I then reattempted again, and at this time and we were able to place one clip in the most distal portion of the ulcer. However, this did not approximate the ulcer margins. In the midportion of the ulcer, we attempted to place another clip. However, this again was unsuccessful, and the clip deployed just on the margin of the ulcer. As the ulcer was quite deep, I was hesitant to use a Gold probe for risk of perforation. Therefore, using a forward firing APC probe, I ablated the ulcer bed as well as surrounding tissue. Following this, there was eschar formation. The area was copiously irrigated with water, and no active bleeding was seen. The remainder of the exam to second portion of the duodenum was otherwise unremarkable. The ulcer was minimally oozing but not actively bleeding when we approached it. During the procedure, as the patient became hypoxic, we did have to stop the procedure, and then patient was placed under general anesthesia and we continued the procedure. IMPRESSION: Large ulcer with a clot, as well as clean-based portion, treated with a combination of epinephrine, APC, and hemoclip. RECOMMENDATIONS: 1. N.p.o., PPI drip. 2. Continue to follow H and H. PROCEDURE DETAILS: I will proceed to colonoscopy, as patient has large amounts of maroon blood from her rectum. With her history of having had diverticular bleed in the past, this may be a possibility, however likely that this may just be an upper GI source. Following the EGD exam, a digital rectal exam was performed which revealed clots in the rectum. The colonoscope was then inserted into the rectum and advanced to the cecum. The cecum was identified by the presence of the ileocecal valve. I was unable to see the base of the cecum or the appendiceal orifice, as there were clots that I was unable to evacuate despite irrigation and suctioning. The prep of the colon was poor. I did attempt my best to irrigate the mucosal lining, and as I withdrew to the rectum, I did not appreciate any active bright red bleeding. However, old blood was seen. Starting in the distal transverse colon and extending to the sigmoid colon, there were scattered diverticula. I was unable to perform retroflexion, as patient had a short rectal vault. IMPRESSION: 1. Old blood throughout the colon. 2. Left-sided diverticulosis. 3. I suspect the bleeding was likely from the duodenal ulcer. Recommend proton pump inhibitor drip. 4. Continue to follow hemoglobin and hematocrit, nothing by mouth, intensive care unit monitoring. COMPLICATIONS: None. ESTIMATED BLOOD LOSS: Zero.
--- NOTE | 2017-04-17 13:57 | NUR ---
Evaluation completed. Please go to "Notes" then click on "Assessments and Notes" (bottom left corner of screen). Then select appropriate discipline tab on top of screen.
--- NOTE | 2017-04-17 14:51 | PROG NOTE ---
[address] [address] PROGRESS NOTE PATIENT: LAURA SANABRIA : 1930 MR#: [id number] ADMIT: 04/11/2017 JOB ID: [id number] DATE: 04/17/2017 INFECTIOUS DISEASE FOLLOWUP NOTE: REASON FOR FOLLOWUP: Acute renal failure secondary to C. diff. INTERVAL HISTORY: Recall that this is a patient who presented with a creatinine of 10 secondary to C. diff and also has a UPJ obstruction on the right which appears to be chronic. Her complicated course became further complicated over the last couple of days when she developed a major GI bleed. Yesterday, the patient underwent upper endoscopy, as well as colonoscopy. We have an oral report that a duodenal ulcer was found, and there was actually no problem in the colon but it was an inadequate study of the colon, apparently, due to the great volume of blood present there. Recall that there was concern that the FMS insertion had caused a rent or damage to the rectal mucosa causing the GI bleed but, in retrospect, it appears it may have been more of an upper GI bleed. In any event, the patient feels somewhat improved this morning, though still very weak and bedridden. She has had no new fevers or chills. No new pulmonary symptoms. No abdominal pain, and she notes that her diarrhea is subsiding. Her urine output is reasonably good, and her renal function is improving. PHYSICAL EXAMINATION: Reveals a stoic elderly woman lying supine in bed. She has been afebrile now for four days. Current temp 36.4, pulse 100, respiratory rate 18, blood pressure 107/52. She is in no acute distress. Oral cavity negative. Lungs relatively clear. Cardiac tones without new murmur. Abdomen is surprisingly soft and nontender. LABORATORIES: Include white count 15,000, unchanged from yesterday. Still with left shift, 80% segs, platelets low at 110 as before. Her renal function continues to improve every day. It started off at 9.6 on the , the th at 8.6, yesterday 6.9, and today 6.2. So, we are seeing a steady, slow improvement in her creatinine. Blood cultures remain negative. We do have the stool positive for C. diff. IMAGING: Includes chest x-ray done yesterday which shows chronic interstitial lung disease and possible aspiration pneumonia in the retrocardiac area. IMPRESSION: This is an incredibly complicated case of a woman who presented with a creatinine of almost 10 with severe Clostridium difficile, and a history of a few days of abdominal cramps and diarrhea prior to admission. Her course has been complicated by a massive gastrointestinal bleed, which now appears to be of upper rather than lower origin. An additional problem is that she had urine packed with white cells. Urine culture was not obtained in a timely fashion and now, we have no culture to guide our therapy for her probable urinary tract infection, which likely contributed to this current medical situation. RECOMMENDATIONS: 1. Will continue with Zosyn through tomorrow, April 18, to finish a course of therapy. 2. Will continue with IV Flagyl and oral vancomycin as maximal therapy for her C. diff. 3. Will continue to closely follow her renal function, as well as her hematocrit going forward. 4. We suspect eventually the patient will be discharged on oral vancomycin to finish a 14-day course. In addition, before she leaves, we plan to give her an IV dose of bezlotoxumab in a dose of 700 mg x1 to try and prevent a relapse of this very devastating C. diff infection.
[2017-04-17] MEDS: Pantoprazole Inj 80 MG in 0.9% Sodium Chloride 80 ML IV SCH (15:25)
--- NOTE | 2017-04-17 16:20 | NUR ---
Evaluation completed. Please go to "Notes" then click on "Assessments and Notes" (bottom left corner of screen). Then select appropriate discipline tab on top of screen.
[2017-04-17 16:44] LABS: Mean Corpuscular Hemoglobin 28.3 pg (27.0-35.0)
--- NOTE | 2017-04-17 17:10 | NUR ---
Social Work: Continued Discharge Planning D: Pt discussed in am rounds. Pt is not medically stable and may still have an active GI bleed. PT recommendation is for SNF as pt was only able to ambulate 1 foot. PROJECT MANAGEMENT DIRECTOR spoke with pt's son, Pierre, to discuss discharge planning. He states that the pt has a room reserved at [facility] ([phone]) and that he has spoken to them about pt's status. He states that they are able to do rehab and that if possible he would life for the patient to discharge there as opposed to SNF. t/c to [facility]; PROJECT MANAGEMENT DIRECTOR spoke with admissions worker, Danni who states that she is familiar with pt and that they can provide daily PT/OT. PROJECT MANAGEMENT DIRECTOR reviewed PT evaluation with [facility] and informed them that she is only able to ambulate 1 foot. They state that they can accommodate pt's current needs and assist with all ADLs. They are not able to do IV medications. At this time, they are not requested clinicals. A: Pt who lives at home alone. P: Evolving; PROJECT MANAGEMENT DIRECTOR to continue to follow pt's clinical course. Pt to either d/c to [facility] versus SNF. NICHOL Lara
--- NOTE | 2017-04-17 18:31 | NUR ---
Tele/BM No reports of chest pain/pressure/discomfort. Tele sinus tachy low 100s with no ectopy. No reports of SOB at rest. SPO2 on 3L NC 96%. Productive cough with dark yellow thick sputum. No reports of n/v or abdominal pain. Per MEDICAL OFFICE PROFESSIONAL INSTRUCTOR patient had brown sticky BM this AM -- no dark/pramod blood noted by MEDICAL OFFICE PROFESSIONAL INSTRUCTOR. At approx 1815 patient had small to moderate dark red/sticky/clots BM with pramod blood. Yellow team aware, paged GI. No emesis. Tolerating clear liquid diet well. Altamirano patent and draining pale yellow urine to gravity. BP stable throughout shift.
--- NOTE | 2017-04-17 22:50 | NUR ---
Transfer of care Report given to Bertha Stein RN, she will be caring for this patient for remainder of shift.
[2017-04-18] VITALS (7 sets, daily range): BP systolic 122–143; BP diastolic 61–71; PULSE 99–106; RESP 16–20; O2SAT 93–96
[2017-04-18] MEDS: Vancomycin 125 mg Oral Capsule PO SCH ×4 (00:15→17:40)
[2017-04-18] MEDS: metroNIDAZOLE Inj 500 MG in IV Premix 1 EACH IV SCH ×3 (00:56→16:30)
[2017-04-18] MEDS: Pantoprazole Inj 80 MG in 0.9% Sodium Chloride 80 ML IV SCH ×3 (01:04→16:31)
[2017-04-18] MEDS: Piperacillin-Tazo 3.375 Gm Inj 3.375 GM in Dextrose 5% Minibag Plus 50 ML IV SCH (01:38)
[2017-04-18] MEDS: 0.9% Sodium Chloride 250 ML IV SCH (01:40)
[2017-04-18 03:01] LABS: EOSINOPHILS % (AUTO) 4.4 % (0-5); MONOCYTES % (AUTO) 6.5 % (4-12); NEUTROPHILS % (AUTO) 71.4 % (40-74); Platelet Count 141 bil/L (150-400)
--- NOTE | 2017-04-18 08:23 | NUR ---
Telemetry/activity Tele ST low 100s per control technician. Denies chest pain and pressure and shortness of breath. Pt encouraged to self turn while on bedrest. SCDs in place. Denies pain and general discomfort. VSS. care ongoing.
[2017-04-18] MEDS: 0.9% NaCl + KCl 20 mEq/L 1,000 ML IV SCH ×2 (10:34→23:07)
--- NOTE | 2017-04-18 11:17 | PCM.PNMED ---
Subjective Date of Service April 18, 2017 Subjective No acute complaints this morning. Patient is seated in a hospital chair during time of my evaluation, finishing up her liquid breakfast. Denies any pains, denies chest pain or palpitations, denies abdominal pain, she has had some loose stool but this is not a major bother her and also not having abdominal pain. Denies fever chills. Exam Vital Signs Vital Sign - Last Date Time Temp Pulse Resp B/P Pulse Ox O2 Delivery O2 Flow Rate FiO2 04/18/17 10:08 Nasal Cannula 1.00 04/18/17 08:00 100 04/18/17 07:44 36.5 18 139/67 93 Intake and Output 04/17/17 04/17/17 04/18/17 Cumulative From/Thru 15:00 23:00 07:00 04/11/17 17:35 - 04/18/17 05:59 Intake Total 739 ml 300 ml 36709 ml Output Total 1100 ml 1100 ml 9850 ml Balance -361 ml -800 ml 06054 ml Intake Oral 320 ml 300 ml 5885 ml IV Total 419 ml 28048 ml TPN/PPN 493 ml Packed Cells 1826 ml FFP 305 ml Output Urine Total 1100 ml 1100 ml 8150 ml Stool Total 1700 ml # Bowel Movements 1 3 26 General: Alert, Cooperative, Mild Distress Mouth: Mucous Membr Moist/[place] Chest & Lungs: Clear to auscultation & percussion Cardiovascular: Regular Rate/Rhythm Abdomen: Non-tender, Other (mildly distended, mild diffuse tenderness no guarding. ) Extremities: No cyanosis/clubbing/edma bilat, Other (pneumatic compression stockings in place) Neurological: Grossly Neurologically Intact IVs and Medications Medications Reviewed: Medications were reviewed in detail Lab and Diagnostics Result Diagram: 04/18/17 0245 04/18/17 0245 X-Rays, CTs and MRIs US RENAL SONOGRAM IMPRESSION: Multiple mildly complex right renal cysts, some of which demonstrate internal septations. Recommend continued surveillance with renal ultrasound or CT. Given the absence of any relevant prior comparison studies, consider initial workup with CT (in the non-emergent setting). Large postvoid residual. Internal bladder echoes, presumably intraluminal debris. Renal cortical thinning/atrophy Dictated by: Lamin Stack M.D. on 04/11/2017 at 19:32 CT ABDOMEN AND PELVIS WITHOUT CONTRAST IMPRESSION: 1. Severe right hydronephrosis without hydroureter suggesting a UPJ obstruction. No radiopaque stones identified. 2. Concentric bladder wall thickening of a distended urinary bladder compatible with cystitis. Recommend correlation with urinalysis. 3. Diverticulosis without acute diverticulitis. 4. Small bilateral pleural effusions with bibasilar consolidation suspicious for pneumonia. The findings also raise the possibility of aspiration. Dictated by: Andrade Livingston M.D. on 04/12/2017 at 13:22 CT ABDOMEN AND PELVIS WITHOUT CONTRAST IMPRESSION: 1. Segmental wall thickening of the sigmoid colon increased from the prior study consistent with a nonspecific colitis, infectious, inflammatory, or ischemic in etiology. An underlying mass is also not excluded. 2. Segmental wall thickening of the duodenum consistent with a nonspecific duodenitis, likely infectious or inflammatory. 3. Severe dilatation of the right renal collecting system redemonstrated likely due to a UPJ obstruction. 4. Concentric wall thickening of the bladder consistent with a nonspecific cystitis. Recommend correlation with urinalysis. Dictated by: Andrade Livingston M.D. on 04/15/2017 at 13:50 X-RAY CHEST ONE VIEW, PORTABLE IMPRESSION: Interval worsening of retrocardiac consolidation (potentially aspiration) since 04/11/17. Possible small layering left pleural effusion Chronic diffuse interstitial disease as before. Dictated by: Lamin Stack M.D. on 04/17/2017 at 9:19 Assessment & Plan Caitie Monet is an 86 year old woman with past medical history significant for hypertension, breast cancer in remission, hyperlipidemia, and diverticular disease who presented to [facility] from [facility] due to hyperkalemia and acute kidney injury. The patient is currently under treatment for C. Difficile colitis, acute kidney injury and a UTI and chronic right hydronephrosis and acute GI bleed. Hospital day #8 Acute upper GI bleed in the setting of C. Diff colitis and diverticulitis in a uremic patient with a component of chronic anemia from CKD, not present on admission, active -S/P 8 units of PRBCs and one unit of FFP as well. DDAV x2. -The patient put out approximately 1700 cc of maroon stool overnight on 04/15 and again had bloody stools overnight on 04/16, but resolving currently. -CT of abdomen/pelvis with PO contrast demonstrated worsening colitis -GI consulted, EGD revealed an ulcer in the upper GI tract. Patient PPI drip currently. Diet advanced to clear liquid. - Overnight hemoglobin decreased from 9-8.5, will continue to monitor closely, hemodynamically stable. Acute injury kidney injury secondary to dehydration secondary to C. difficile colitis in a patient with CKD with a chronic right UPJ, present on admission, active. Improving. -Nephrology consulted, appreciate recommendations and expertise. We will follow. Likely patient will need dialysis soon. -IVF per nephrology - Renal functions remain elevated but downward trending. -Urology consulted for right hydronephrosis and probable UPJ obstruction. Upon review of past abdominal U/S patient was noted to have hydronephrosis about one year ago. - Altamirano catheter remains in place C. difficile colitis, present on admission, active. -PO vancomycin and IV Flagyl. Antibiotic day 7, which will complete course. -CT showing diverticulitis as well. -Infectious disease consulted. We will follow recommendations. Urinary tract infection in a patient with a history of recurrent UTIs, present on admission, active -Patient noted to have a very dirty urine and has bladder retention as well -May be due to cross-contamination from diarrhea with stasis -Zosyn, day 7. Infectious disease consulted. -Repeat UA with culture obtained with no growth Possible aspiration, present on admission, active -Will order speech therapy eval Possible toxic encephalopathy with asterixis, present on admission, active -May be due to uremia as well. -No history of cirrhosis noted per patient's report. CT of abdomen does not reveal a cirrhotic appearing liver. -Ammonia is elevated. Per family the patient is mildly more altered than her baseline. -We will continue to monitor mentation Hyperkalemia, present on admission, resolved. Hypertension, chronic -Hold blood pressure medications at this time Hypovolemic hyponatremia, present on admission, resolved Hypocalcemia, secondary to multiple PRBC transfusions, active. -Continue to replace. Disposition: The patient will likely be in the hospital for 2-3 more days as she is evaluated and treated for the above problems. Pain Evaluation: Adequate Pain Control VTE Mechanical Devices: Intermittant Pneumatic CD Resuscitation Status: CPR: Attempt Resuscitation Time spent 30 minutes Norbert Lozoya DO April 18, 2017 11:17
--- NOTE | 2017-04-18 13:16 | PCM.PNNEPH ---
Subjective Date of Service April 18, 2017 Subjective Overall she is doing better. Kidney function continues to improve. No further episode of GI bleed overnight. Rectal tube was removed. Exam Vital Signs Vital Sign - Last Date Time Temp Pulse Resp B/P Pulse Ox O2 Delivery O2 Flow Rate FiO2 04/18/17 12:24 36.4 99 20 136/67 94 Room Air 04/18/17 10:08 1.00 Intake and Output 04/17/17 04/17/17 04/18/17 Cumulative From/Thru 15:00 23:00 07:00 04/11/17 17:35 - 04/18/17 05:59 Intake Total 739 ml 300 ml 06324 ml Output Total 1100 ml 1100 ml 9850 ml Balance -361 ml -800 ml 93908 ml Intake Oral 320 ml 300 ml 5885 ml IV Total 419 ml 84294 ml TPN/PPN 493 ml Packed Cells 1826 ml FFP 305 ml Output Urine Total 1100 ml 1100 ml 8150 ml Stool Total 1700 ml # Bowel Movements 1 3 26 Exam General: Frail appearance, in NAD. AAOx3. HEENT: Normocephalic, atraumatic. Dry MM, no pallor, anicteric sclerae. Neck: Supple. No jugular venous distension. No lymphadenopathy or thyromegaly. Cardiovascular: Regular rate and rhythm with soft systolic murmur. Pulmonary: Clear to auscultation bilaterally with no crackles, wheezes, or rhonchi. Abdomen: Soft, mildly distended. No hepatosplenomegaly or masses appreciated. No tenderness to palpation. Active BS. Extremities: No clubbing, cyanosis, edema. : heredia cath with clear urine. Lab and Diagnostics Result Diagram: 04/18/17 1215 04/18/17 0245 X-Rays, CTs and MRIs US RENAL SONOGRAM IMPRESSION: Multiple mildly complex right renal cysts, some of which demonstrate internal septations. Recommend continued surveillance with renal ultrasound or CT. Given the absence of any relevant prior comparison studies, consider initial workup with CT (in the non-emergent setting). Large postvoid residual. Internal bladder echoes, presumably intraluminal debris. Renal cortical thinning/atrophy Dictated by: Lamin Stack M.D. on 04/11/2017 at 19:32 CT ABDOMEN AND PELVIS WITHOUT CONTRAST IMPRESSION: 1. Severe right hydronephrosis without hydroureter suggesting a UPJ obstruction. No radiopaque stones identified. 2. Concentric bladder wall thickening of a distended urinary bladder compatible with cystitis. Recommend correlation with urinalysis. 3. Diverticulosis without acute diverticulitis. 4. Small bilateral pleural effusions with bibasilar consolidation suspicious for pneumonia. The findings also raise the possibility of aspiration. Dictated by: Andrade Livingston M.D. on 04/12/2017 at 13:22 CT ABDOMEN AND PELVIS WITHOUT CONTRAST IMPRESSION: 1. Segmental wall thickening of the sigmoid colon increased from the prior study consistent with a nonspecific colitis, infectious, inflammatory, or ischemic in etiology. An underlying mass is also not excluded. 2. Segmental wall thickening of the duodenum consistent with a nonspecific duodenitis, likely infectious or inflammatory. 3. Severe dilatation of the right renal collecting system redemonstrated likely due to a UPJ obstruction. 4. Concentric wall thickening of the bladder consistent with a nonspecific cystitis. Recommend correlation with urinalysis. Dictated by: Andrade Livingston M.D. on 04/15/2017 at 13:50 X-RAY CHEST ONE VIEW, PORTABLE IMPRESSION: Interval worsening of retrocardiac consolidation (potentially aspiration) since 04/11/17. Possible small layering left pleural effusion Chronic diffuse interstitial disease as before. Dictated by: Lamin Stack M.D. on 04/17/2017 at 9:19 Plan Impression Impression 1. VICTOR MANUEL. - ischemic ATN with component of prerenal. 2. Chronic right kidney hydronephrosis - nonfunctioning right kidney. - Severe right hydronephrosis noted per CT abd. - Abd US in Jul 2016 form [place] showed severely dilated right renal pelvis and dilated visualized proximal right ureter, 2.6 cm with cortical thinning without visualized filling defect or mass, suspected chronic and severe right vesicoureteral reflux disease. 3. Acute anemia due to acute GIB. s/o EGD, large ulcer cauterized. 4. Complicated UTI. 5. C.diff colitis. 6. Essential HTN. 7. Hypokalemia. Plan: - IVF NS+ KCL 20 meq 80 ml/hr. - Supportive treatment. - Monitor H&H. - Keep I&O balanced. - Daily BMP. - TUBE LANCER not indicated. - Avoid nephrotoxins. - Renally dose meds. Monica Marquez MD April 18, 2017 13:16
--- NOTE | 2017-04-18 14:45 | PCM.PNMED ---
Subjective Date of Service April 18, 2017 Subjective per nursing yesterday afternoon with dark, maroon stool with clot repeat H/H from yesterday afternoon till 12pm today are stable patient without abdominal pain, nausea, vomiting. Tolerating clears. BM now shows green loose stool, non bloody Exam Vital Signs Vital Sign - Last Date Time Temp Pulse Resp B/P Pulse Ox O2 Delivery O2 Flow Rate FiO2 04/18/17 12:24 36.4 99 20 136/67 94 Room Air 04/18/17 10:08 1.00 Intake and Output 04/17/17 04/17/17 04/18/17 Cumulative From/Thru 15:00 23:00 07:00 04/11/17 17:35 - 04/18/17 05:59 Intake Total 739 ml 300 ml 90745 ml Output Total 1100 ml 1100 ml 9850 ml Balance -361 ml -800 ml 70429 ml Intake Oral 320 ml 300 ml 5885 ml IV Total 419 ml 56934 ml TPN/PPN 493 ml Packed Cells 1826 ml FFP 305 ml Output Urine Total 1100 ml 1100 ml 8150 ml Stool Total 1700 ml # Bowel Movements 1 3 26 Exam GEN-arousable and appropriate answers to questions HEENT- pallor present RESP- decreased breath sounds in bases CVS-s1 and s2 heard Abdomen- soft, non tender, bowel sounds present Lab and Diagnostics Result Diagram: 04/18/17 1215 04/18/17 0245 X-Rays, CTs and MRIs US RENAL SONOGRAM IMPRESSION: Multiple mildly complex right renal cysts, some of which demonstrate internal septations. Recommend continued surveillance with renal ultrasound or CT. Given the absence of any relevant prior comparison studies, consider initial workup with CT (in the non-emergent setting). Large postvoid residual. Internal bladder echoes, presumably intraluminal debris. Renal cortical thinning/atrophy Dictated by: Lamin Stack M.D. on 04/11/2017 at 19:32 CT ABDOMEN AND PELVIS WITHOUT CONTRAST IMPRESSION: 1. Severe right hydronephrosis without hydroureter suggesting a UPJ obstruction. No radiopaque stones identified. 2. Concentric bladder wall thickening of a distended urinary bladder compatible with cystitis. Recommend correlation with urinalysis. 3. Diverticulosis without acute diverticulitis. 4. Small bilateral pleural effusions with bibasilar consolidation suspicious for pneumonia. The findings also raise the possibility of aspiration. Dictated by: Andrade Livingston M.D. on 04/12/2017 at 13:22 CT ABDOMEN AND PELVIS WITHOUT CONTRAST IMPRESSION: 1. Segmental wall thickening of the sigmoid colon increased from the prior study consistent with a nonspecific colitis, infectious, inflammatory, or ischemic in etiology. An underlying mass is also not excluded. 2. Segmental wall thickening of the duodenum consistent with a nonspecific duodenitis, likely infectious or inflammatory. 3. Severe dilatation of the right renal collecting system redemonstrated likely due to a UPJ obstruction. 4. Concentric wall thickening of the bladder consistent with a nonspecific cystitis. Recommend correlation with urinalysis. Dictated by: Andrade Livingston M.D. on 04/15/2017 at 13:50 X-RAY CHEST ONE VIEW, PORTABLE IMPRESSION: Interval worsening of retrocardiac consolidation (potentially aspiration) since 04/11/17. Possible small layering left pleural effusion Chronic diffuse interstitial disease as before. Dictated by: Lamin tSack M.D. on 04/17/2017 at 9:19 Assessment & Plan Duodenal Ulcer s/p EPI and APC - H/H stable -no further bleeding -stop PPI drip -advance diet -recommend protonix 40mg PO BID for 12 weeks, then daily -awaiting H pylori stool antigen, if positive treat Clostridium Difficile colitis/diarrhea -continue vancomycin -continue probiotics -consider increasing soluble fiber to diet, may help with loose stool Acute Anemia -secondary to GI bleed VTE Mechanical Devices: Intermittant Pneumatic CD Resuscitation Status: CPR: Attempt Resuscitation Wayne Xie MD April 18, 2017 14:45
--- NOTE | 2017-04-18 18:14 | NUR ---
BM Patient had loose BM x1. Was dark green in color. NO other S/SX of bleeding noted. Patient denies pain/discomfort.
[2017-04-19] VITALS (9 sets, daily range): BP systolic 135–160; BP diastolic 67–87; PULSE 100–112; RESP 18–20; O2SAT 90–94
[2017-04-19] MEDS: Vancomycin 125 mg Oral Capsule PO SCH ×4 (01:01→17:32)
[2017-04-19] MEDS: metroNIDAZOLE Inj 500 MG in IV Premix 1 EACH IV SCH ×2 (01:02→08:05)
[2017-04-19 02:44] LABS: BASOPHILS % (AUTO) 1.1 % (0-3); EOSINOPHILS % (AUTO) 2.7 % (0-5); MONOCYTES % (AUTO) 5.5 % (4-12); Mean Corpuscular Hemoglobin 28.9 pg (27.0-35.0); Mean Corpuscular Volume 85.4 fL (81-100); NEUTROPHILS % (AUTO) 73.8 % (40-74); Platelet Count 205 bil/L (150-400)
--- NOTE | 2017-04-19 07:20 | NUR ---
GI/Skin/Potassium Pt had 1 dark green stool early in shift, sample sent for H Pylori test. Pt denied N/V. Altamirano patent and draining a large amount of pale urine, see I&Os. Pt able to move well for assessments, but needs encouragement. Right buttock is red with small blister, mepilex applied and turns encouraged. Day RN aware. Groin also red, barrier cream applied. Bilateral arm redness and bruising also noted, unchanged this shift, per pt this has improved from last few days. Potassium decreased this morning, FYI page sent to , no new orders. NS+[id number] continues.
[2017-04-19] MEDS: Pantoprazole 40 mg ER24 Tablet PO SCH ×2 (07:53→16:17)
[2017-04-19] MEDS ORDERED: Potassium Chloride 20 mEq SR Tablet PO ONE (08:25)
[2017-04-19] MEDS ORDERED: Furosemide 10 mg/mL 2 mL Inj IVPUSH ONE (08:30)
--- NOTE | 2017-04-19 08:44 | PCM.PNMED ---
Subjective Date of Service April 19, 2017 Subjective Caitie Monet is an 86 year old woman with past medical history significant for hypertension, breast cancer in remission, hyperlipidemia, and diverticular disease who presented to [facility] from [facility] due to hyperkalemia and acute kidney injury. The patient is currently under treatment for C. Difficile colitis, acute kidney injury and a UTI and chronic right hydronephrosis and acute GI bleed. Hospital day #9 Overnight: No acute events. Today: The patient states she is feeling well but she is tired of being in the hospital and in her bed and would like to move around more. She denies any episodes of diarrhea or abdominal pain. She states she is less bloated than she has been. She does note that her extremities are edematous and she feels "puffy. " She is also concerned about her blood pressure being too high. The remainder review of systems is negative except as noted above. Exam Vital Signs Vital Sign - Last Date Time Temp Pulse Resp B/P Pulse Ox O2 Delivery O2 Flow Rate FiO2 04/19/17 07:44 36.6 112 18 147/76 90 Room Air 04/18/17 10:08 1.00 Intake and Output 04/18/17 04/18/17 04/19/17 Cumulative From/Thru 15:00 23:00 07:00 04/11/17 17:35 - 04/19/17 06:46 Intake Total 509 ml 1885 ml 1233 ml 62838 ml Output Total 1800 ml 1800 ml 71335 ml Balance 509 ml 85 ml -567 ml 05444 ml Intake Oral 1000 ml 100 ml 6985 ml IV Total 509 ml 885 ml 1133 ml 56082 ml TPN/PPN 493 ml Packed Cells 1826 ml FFP 305 ml Output Urine Total 1800 ml 1800 ml 40427 ml Stool Total 1700 ml # Bowel Movements 1 12 27 Exam General: No acute distress, thin elderly female sitting up in hospital. Forgetful but alert and oriented. HEENT: Normocephalic, atraumatic. External ears without defect. Pupils equal, round, and reactive to light and accommodation. Anicteric sclerae, moist conjunctivae, and no lid lag. Oropharynx free of erythema and cobble stoning with moist mucosa. Neck: Supple with full range of motion. No jugular venous distension. No lymphadenopathy or thyromegaly. Cardiovascular: Regular rate and rhythm with soft systolic murmur and occasional ectopic beats. Pulmonary: Clear to auscultation bilaterally. Normal respiratory effort with no use of accessory muscles. Abdomen: Soft, mildly distended. No hepatosplenomegaly or masses appreciated. No tenderness to palpation. Hyperactive bowel sounds. Small ventral hernia noted with coughing. : Altamirano in place. Draining yellow urine. Extremities: No clubbing, cyanosis, or lymphadenopathy appreciated. Half-and- half nails noted. Pitting edema of both lower and upper extremities noted. Skin: Normal temperature, turgor, and texture; no rash, ulcers, or subcutaneous nodules appreciated. Neurological: Cranial nerves grossly intact. Normal muscle strength, tone, and bulk. Psychiatric: Normal mood and affect. Alert and oriented to person, place, and time. IVs and Medications Medications Reviewed: Medications were reviewed in detail Lab and Diagnostics Result Diagram: 04/19/17 02304/19/17 023 X-Rays, CTs and MRIs US RENAL SONOGRAM IMPRESSION: Multiple mildly complex right renal cysts, some of which demonstrate internal septations. Recommend continued surveillance with renal ultrasound or CT. Given the absence of any relevant prior comparison studies, consider initial workup with CT (in the non-emergent setting). Large postvoid residual. Internal bladder echoes, presumably intraluminal debris. Renal cortical thinning/atrophy Dictated by: Lamin Stack M.D. on 04/11/2017 at 19:32 CT ABDOMEN AND PELVIS WITHOUT CONTRAST IMPRESSION: 1. Severe right hydronephrosis without hydroureter suggesting a UPJ obstruction. No radiopaque stones identified. 2. Concentric bladder wall thickening of a distended urinary bladder compatible with cystitis. Recommend correlation with urinalysis. 3. Diverticulosis without acute diverticulitis. 4. Small bilateral pleural effusions with bibasilar consolidation suspicious for pneumonia. The findings also raise the possibility of aspiration. Dictated by: Andrade Livingston M.D. on 04/12/2017 at 13:22 CT ABDOMEN AND PELVIS WITHOUT CONTRAST IMPRESSION: 1. Segmental wall thickening of the sigmoid colon increased from the prior study consistent with a nonspecific colitis, infectious, inflammatory, or ischemic in etiology. An underlying mass is also not excluded. 2. Segmental wall thickening of the duodenum consistent with a nonspecific duodenitis, likely infectious or inflammatory. 3. Severe dilatation of the right renal collecting system redemonstrated likely due to a UPJ obstruction. 4. Concentric wall thickening of the bladder consistent with a nonspecific cystitis. Recommend correlation with urinalysis. Dictated by: Andrade Livingston M.D. on 04/15/2017 at 13:50 X-RAY CHEST ONE VIEW, PORTABLE IMPRESSION: Interval worsening of retrocardiac consolidation (potentially aspiration) since 04/11/17. Possible small layering left pleural effusion Chronic diffuse interstitial disease as before. Dictated by: Lamin Stack M.D. on 04/17/2017 at 9:19 Assessment & Plan Caitie Monet is an 86 year old woman with past medical history significant for hypertension, breast cancer in remission, hyperlipidemia, and diverticular disease who presented to [facility] from [facility] due to hyperkalemia and acute kidney injury. The patient is currently under treatment for C. Difficile colitis, acute kidney injury and a UTI and chronic right hydronephrosis and acute GI bleed. Hospital day #9 Acute upper GI bleed in the setting of C. Diff colitis and diverticulitis in a uremic patient with a component of chronic anemia from CKD, not present on admission, resolved -S/P 8 units of PRBCs and one unit of FFP as well. DDAV x2. -The patient put out approximately 1700 cc of maroon stool overnight on 04/15 and again had bloody stools overnight on 04/16, but resolving currently. -CT of abdomen/pelvis with PO contrast demonstrated worsening colitis -GI consulted, EGD revealed a duodenal ulcer s/p cauterization. On Protonix PO BID per GI. Diet advanced to full liquid. -Will continue to monitor closely, hemodynamically stable. Acute injury kidney injury secondary to dehydration secondary to C. difficile colitis in a patient with CKD with a chronic right UPJ, present on admission, active. Improving. -Nephrology consulted, appreciate recommendations and expertise. We will follow. -Stopped IVF as patient is becoming very edematous and is moving into hypervolemic hypernatremia -Renal functions remain elevated but downward trending. -Urology consulted for right hydronephrosis and probable UPJ obstruction. Upon review of past abdominal U/S patient was noted to have hydronephrosis about one year ago. -Altamirano catheter remains in place Anion gap metabolic acidosis, not present on admission, active -Pure HAGMA. -Will check lactic acid C. difficile colitis, present on admission, active. -PO vancomycin and IV Flagyl. Antibiotic day 8. -CT showing diverticulitis as well. -Infectious disease consulted. We will follow recommendations. Urinary tract infection in a patient with a history of recurrent UTIs, present on admission, active -Patient noted to have a very dirty urine and has bladder retention as well, may be due to cross-contamination from diarrhea with stasis -Repeat UA with culture obtained with no growth -Zosyn completed 7 days. Infectious disease consulted. Possible aspiration, present on admission, active -Speech therapy evaluation completed -May proceed with barium swallow Possible toxic encephalopathy with asterixis, present on admission, resolving -May be due to uremia as well. -No history of cirrhosis noted per patient's report. CT of abdomen does not reveal a cirrhotic appearing liver. -Ammonia is elevated. Per family the patient is mildly more altered than her baseline. -We will continue to monitor mentation Hyperkalemia, present on admission, resolved. Hypertension, chronic, active -Will restart HCTZ, hold lisinopril Hypocalcemia, secondary to multiple PRBC transfusions, active. -Continue to replace. Disposition: The patient will likely be in the hospital for 1-2 more days as she is evaluated and treated for the above problems. VTE Prophylaxis: Sub-Q Heparin (Unfractionated) VTE Mechanical Devices: Intermittant Pneumatic CD Resuscitation Status: CPR: Attempt Resuscitation Time spent 25 minutes Attending Statement I have seen and evaluated patient at bedside in addition to directly supervising care provided by resident physician. I agree with above documentation Carmelina Lazcano DO April 19, 2017 08:32 Norbert Lozoya DO April 19, 2017 14:47
--- NOTE | 2017-04-19 09:00 | NUR ---
[facility] Signed
--- NOTE | 2017-04-19 09:40 | PROG NOTE ---
[address] [address] PROGRESS NOTE PATIENT: LAURA SANABRIA : 1930 MR#: [id number] ADMIT: 04/11/2017 JOB ID: [id number] DATE: 04/19/2017 REASON FOR FOLLOWUP: Severe C. difficile diarrhea complicated by renal failure and duodenal ulcer with upper GI bleed. INTERVAL HISTORY: Over the past 48 hours the patient has improved considerably. She states she no longer has any fevers, chills, or sweats. She has no cough or shortness of breath. She notes that her diarrhea has completely resolved, and she has no abdominal pain and cramps. No skin rash noted. PHYSICAL EXAMINATION: Reveals an afebrile woman temp 36.6, pulse 100-110, respiratory rate 18, blood pressure 147/76 saturating 90% to 94% on room air. She is in no acute distress. Awake and alert and able to give a good history. Lips without herpetic lesions. Lungs fairly clear bilaterally. Cardiac tones with moderate tachycardia, no murmur appreciated. The abdomen is slightly distended, but absolutely soft and nontender. No skin rash noted. The patient's number of bowel movements has declined to only about 1 per day the last couple days. LABORATORY STUDIES: Include white count 12,000, normal diff. Creatinine 4.68. LFTs are normal. Albumin 2.0. Cultures include the urine culture which was negative. It was done well in the antibiotics as well as the stool that was positive for C. diff. Blood cultures have been negative. No new imaging has been obtained. IMPRESSION: This patient continues to steadily improve as her renal function is slowly resolving and her Clostridium difficile essentially resolved. We have been treating for urinary tract infection. 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 At this point, I think we can start to scale back in terms or Clostridium difficile therapy which currently includes intravenous Flagyl plus vancomycin. There is little evidence that there is added benefit, but both drugs are commonly employed when there is life-threatening disease. RECOMMENDATIONS: 1. Will go ahead and stop her Flagyl today. 2. Will continue with oral vancomycin to complete a 2 week course through the . 3. Prior to discharge the patient should receive 700 mg x1 of bezlotoxumab to try to attempt and reduce the risk of recurrent C. diff given the catastrophic nature of this episode. 4. Will continue to follow this patient with you and write for the monoclonal antibody a little later in her course.
--- NOTE | 2017-04-19 12:12 | NUR ---
Social Work: Readiness for Discharge D: Pt discussed in am rounds. Pt is improving but still anticipated to require several more days of hospitalization. Per ID note, pt will be transitioning to oral abx to complete 2 week course through 04/25/17. PHOTO STYLIST met with patient at bedside to discuss discharge planning and preferences for discharge location. Pt states that her son, Pierre has been arranging all of this and to contact him. t/c to Pierre Monet, to discuss options for discharge. Left Message requesting return phone call to discuss pt's discharge plan. Per previous conversation with [facility], they are able to assist pt with ambulation, transfers and all ADLS and complete daily therapy. As pt will likely be transitioned off of IV ABX, pt may be able to go to [facility] private pay, versus Skilled Rehab under her Medicare. Pt's son had initially stated he wished for the pt to go to [facility] after hospitalization to reduce the times the pt has to be moved/transferred to different facilities. A: Pt who will require continued rehab for strengthening, gait mobility and functional mobility improvement. P: Either pt to discharge to [facility] pending review of clinical information on Thursday versus SNF. PHOTO STYLIST to continue to attempt contact with patient's son. NICHOL Lara
--- NOTE | 2017-04-19 13:31 | PCM.PNNEPH ---
Subjective Date of Service April 19, 2017 Subjective Out of bed. In upright position. She had no episode of GI bleed overnight. She is complaining of upper and lower extremity swelling. Exam Vital Signs Vital Sign - Last Date Time Temp Pulse Resp B/P Pulse Ox O2 Delivery O2 Flow Rate FiO2 04/19/17 12:16 36.3 103 18 135/67 93 Room Air 04/18/17 10:08 1.00 Intake and Output 04/18/17 04/18/17 04/19/17 Cumulative From/Thru 15:00 23:00 07:00 04/11/17 17:35 - 04/19/17 06:46 Intake Total 509 ml 1885 ml 1233 ml 97742 ml Output Total 1800 ml 1800 ml 94522 ml Balance 509 ml 85 ml -567 ml 76791 ml Intake Oral 1000 ml 100 ml 6985 ml IV Total 509 ml 885 ml 1133 ml 78312 ml TPN/PPN 493 ml Packed Cells 1826 ml FFP 305 ml Output Urine Total 1800 ml 1800 ml 08346 ml Stool Total 1700 ml # Bowel Movements 1 12 27 Exam General: Frail appearance, in NAD. AAOx3. HEENT: Normocephalic, atraumatic. Dry MM, no pallor, anicteric sclerae. Neck: Supple. No jugular venous distension. No lymphadenopathy or thyromegaly. Cardiovascular: Regular rate and rhythm with soft systolic murmur. Pulmonary: Clear to auscultation bilaterally with no crackles, wheezes, or rhonchi. Abdomen: Soft, mildly distended. No hepatosplenomegaly or masses appreciated. No tenderness to palpation. Active BS. Extremities: No clubbing, cyanosis, edema. : heredia cath with clear urine. Lab and Diagnostics Result Diagram: 04/19/17 0230 04/19/17 0230 X-Rays, CTs and MRIs US RENAL SONOGRAM IMPRESSION: Multiple mildly complex right renal cysts, some of which demonstrate internal septations. Recommend continued surveillance with renal ultrasound or CT. Given the absence of any relevant prior comparison studies, consider initial workup with CT (in the non-emergent setting). Large postvoid residual. Internal bladder echoes, presumably intraluminal debris. Renal cortical thinning/atrophy Dictated by: Lamin Stack M.D. on 04/11/2017 at 19:32 CT ABDOMEN AND PELVIS WITHOUT CONTRAST IMPRESSION: 1. Severe right hydronephrosis without hydroureter suggesting a UPJ obstruction. No radiopaque stones identified. 2. Concentric bladder wall thickening of a distended urinary bladder compatible with cystitis. Recommend correlation with urinalysis. 3. Diverticulosis without acute diverticulitis. 4. Small bilateral pleural effusions with bibasilar consolidation suspicious for pneumonia. The findings also raise the possibility of aspiration. Dictated by: Andrade Livingston M.D. on 04/12/2017 at 13:22 CT ABDOMEN AND PELVIS WITHOUT CONTRAST IMPRESSION: 1. Segmental wall thickening of the sigmoid colon increased from the prior study consistent with a nonspecific colitis, infectious, inflammatory, or ischemic in etiology. An underlying mass is also not excluded. 2. Segmental wall thickening of the duodenum consistent with a nonspecific duodenitis, likely infectious or inflammatory. 3. Severe dilatation of the right renal collecting system redemonstrated likely due to a UPJ obstruction. 4. Concentric wall thickening of the bladder consistent with a nonspecific cystitis. Recommend correlation with urinalysis. Dictated by: Andrade Livingston M.D. on 04/15/2017 at 13:50 X-RAY CHEST ONE VIEW, PORTABLE IMPRESSION: Interval worsening of retrocardiac consolidation (potentially aspiration) since 04/11/17. Possible small layering left pleural effusion Chronic diffuse interstitial disease as before. Dictated by: Lamin Stack M.D. on 04/17/2017 at 9:19 Plan Impression 1. VICTOR MANUEL ischemic ATN. - Improving - Now with fluid overload. 2. Chronic right kidney hydronephrosis - nonfunctioning right kidney. - Severe right hydronephrosis noted per CT abd. - Abd US in Jul 2016 form [place] showed severely dilated right renal pelvis and dilated visualized proximal right ureter, 2.6 cm with cortical thinning without visualized filling defect or mass, suspected chronic and severe right vesicoureteral reflux disease. 3. Acute anemia due to acute GIB. s/o EGD, large duodenal ulcer cauterized. 4. Complicated UTI. 5. C.diff colitis. 6. Essential HTN. 7. Hypokalemia. Plan: - Discontinue IV fluids. - IV Lasix 20mg, ordered by primary team. - Replace potassium. - BMP in the morning. - Anticipate to discharge the patient in 48 hr. Monica Marquez MD April 19, 2017 13:31
[2017-04-19] MEDS: Heparin 5,000 Unit/mL Inj SUBQ SCH (16:17)
[2017-04-19] MEDS ORDERED: Potassium Chloride 20 mEq/15 mL 15mL Oral Soln PO SCH (18:00)
--- NOTE | 2017-04-19 18:13 | NUR ---
GI/Potassium Pt. had BM of small dark green/semi solid stool on shift. Pt. potassium level has been low and potassium supplements of 20MEQ PO given in AM and 40MEQ (30mL) given this afternoon. Will continue to monitor.
[2017-04-20] VITALS (9 sets, daily range): BP systolic 138–154; BP diastolic 71–81; PULSE 94–105; RESP 16–22; O2SAT 92–96
[2017-04-20] MEDS: Vancomycin 125 mg Oral Capsule PO SCH ×5 (00:42→23:30)
[2017-04-20] MEDS: Heparin 5,000 Unit/mL Inj SUBQ SCH ×4 (00:43→23:35)
--- NOTE | 2017-04-20 07:35 | NUR ---
Restful Night Pt had a restful night between care interventions, no c/o pain, encouraged to reposition for skin protection. Tele STach 100s.
[2017-04-20] MEDS: Pantoprazole 40 mg ER24 Tablet PO SCH ×2 (08:09→16:54)
--- NOTE | 2017-04-20 09:09 | PROG NOTE ---
[address] [address] PROGRESS NOTE PATIENT: LAURA SANABRIA : 1930 MR#: [id number] ADMIT: 04/11/2017 JOB ID: [id number] DATE: 04/20/2017 REASON FOR FOLLOWUP: Severe C. difficile colitis with renal failure. INTERVAL HISTORY: Overnight, the patient has felt quite well. She is starting to have more formed stools and her diarrhea is coming to a halt. She has no urinary symptoms, but still has a Altamirano catheter. No fevers, chills, or pulmonary symptoms. She was able to sit in a chair most of yesterday which is more than she has done so far, and she notes she was also able to walk around a little bit. PHYSICAL EXAMINATION: Reveals an increasingly comfortable woman in no acute distress. Completely afebrile now for basically a week. Temp 36.5, pulse 100, respiratory rate 20, blood pressure 151/75, saturating well on room air. No acute distress. Oral cavity negative. Lungs clear. Cardiac tones no change. Abdomen soft and nontender. The patient is able to eat. She has a Altamirano catheter is present. She has considerable peripheral edema of the extremities which paradoxically seems worse even as she has a great urine output. No skin rash noted. LABORATORIES: Include white count yesterday 12, today pending. Creatinine today 3.68 so it has fallen by exactly 1 point overnight which suggest essentially that her renal function is now normal. LFTs are normal. The H. pylori stool antigen is pending. Blood cultures done recently negative, and we have no significant pauses except stool for C. diff. IMPRESSION: This patient had severe Clostridium difficile colitis associated with renal failure and a creatinine as high as 10. She is now auto diuresing at a rapid rate and her creatinine has fallen by 1 point per day suggesting near complete recovery of renal function. She still has considerable edema to deal with, but given her improving renal function this seems like it will auto correct as well. The Zosyn which was given empirically for a probable urinary tract infection has now been concluded as has the Flagyl portion of her Clostridium difficile combination therapy, and she remains only on oral vancomycin. RECOMMENDATIONS: 1. Oral vancomycin for 5 more days through April 25 to complete 2 weeks of therapy. 2. We will give 700 mg of Zinplava, the new monoclonal antibody to prevent recurrence of C. diff tomorrow if her ejection fraction is normal. The licensing study showed that his Zinplava could exacerbate CHF and would prefer not to do that so will make sure she has reasonable ejection fraction before delivering this drug, which we are using in the hopes of decreasing her risk of recurrent C. diff. Also note that we have already ordered the echocardiogram.
[2017-04-20 09:22] LABS: BASOPHILS % (AUTO) 1.7 % (0-3); EOSINOPHILS % (AUTO) 3.2 % (0-5); Mean Corpuscular Hemoglobin 28.7 pg (27.0-35.0); Mean Corpuscular Volume 85.4 fL (81-100); NEUTROPHILS % (AUTO) 66.8 % (40-74); Platelet Count 315 bil/L (150-400)
--- NOTE | 2017-04-20 13:14 | PCM.PNMED ---
Subjective Date of Service April 20, 2017 Subjective Caitie Monet is an 86 year old woman with past medical history significant for hypertension, breast cancer in remission, hyperlipidemia, and diverticular disease who presented to [facility] from [facility] due to hyperkalemia and acute kidney injury. The patient is currently under treatment for C. Difficile colitis, acute kidney injury and a UTI and chronic right hydronephrosis and acute GI bleed. Hospital day #10 Overnight: No acute events. Today: The patient states she is feeling well today. She is eager to work with physical therapy but is concerned about going home. She denies any abdominal pain, fevers, chills, or worsening cough. The remainder review of systems is negative except as noted above. Exam Vital Signs Vital Sign - Last Date Time Temp Pulse Resp B/P Pulse Ox O2 Delivery O2 Flow Rate FiO2 04/20/17 12:26 36.3 99 18 139/79 95 Room Air 04/18/17 10:08 1.00 Intake and Output 04/19/17 04/19/17 04/20/17 Cumulative From/Thru 15:00 23:00 07:00 04/11/17 17:35 - 04/20/17 04:55 Intake Total 836 ml 180 ml 78199 ml Output Total 1450 ml 1400 ml 14997 ml Balance -614 ml -1220 ml 47886 ml Intake Oral 540 ml 180 ml 7705 ml IV Total 296 ml 40120 ml TPN/PPN 493 ml Packed Cells 1826 ml FFP 305 ml Output Urine Total 1450 ml 1400 ml 53954 ml Stool Total 1700 ml # Bowel Movements 3 31 Exam General: No acute distress, thin elderly female sitting up in hospital. Forgetful but alert and oriented. HEENT: Normocephalic, atraumatic. External ears without defect. Pupils equal, round, and reactive to light and accommodation. Anicteric sclerae, moist conjunctivae, and no lid lag. Oropharynx free of erythema and cobble stoning with moist mucosa. Neck: Supple with full range of motion. No jugular venous distension. No lymphadenopathy or thyromegaly. Cardiovascular: Regular rate and rhythm with soft systolic murmur and occasional ectopic beats. Pulmonary: Clear to auscultation bilaterally. Normal respiratory effort with no use of accessory muscles. Abdomen: Soft, mildly distended. No hepatosplenomegaly or masses appreciated. No tenderness to palpation. Hyperactive bowel sounds. Small ventral hernia noted with coughing. : Altamirano in place. Draining yellow urine. Extremities: No clubbing, cyanosis, or lymphadenopathy appreciated. Half-and- half nails noted. Pitting edema of lower extremities noted, improved since yesterday. Skin: Normal temperature, turgor, and texture; no rash, ulcers, or subcutaneous nodules appreciated. Neurological: Cranial nerves grossly intact. Normal muscle strength, tone, and bulk. Psychiatric: Normal mood and affect. Alert and oriented to person, place, and time. IVs and Medications Medications Reviewed: Medications were reviewed in detail Lab and Diagnostics Result Diagram: 04/20/1772204/20/17722 X-Rays, CTs and MRIs US RENAL SONOGRAM IMPRESSION: Multiple mildly complex right renal cysts, some of which demonstrate internal septations. Recommend continued surveillance with renal ultrasound or CT. Given the absence of any relevant prior comparison studies, consider initial workup with CT (in the non-emergent setting). Large postvoid residual. Internal bladder echoes, presumably intraluminal debris. Renal cortical thinning/atrophy Dictated by: Lamin Stack M.D. on 04/11/2017 at 19:32 CT ABDOMEN AND PELVIS WITHOUT CONTRAST IMPRESSION: 1. Severe right hydronephrosis without hydroureter suggesting a UPJ obstruction. No radiopaque stones identified. 2. Concentric bladder wall thickening of a distended urinary bladder compatible with cystitis. Recommend correlation with urinalysis. 3. Diverticulosis without acute diverticulitis. 4. Small bilateral pleural effusions with bibasilar consolidation suspicious for pneumonia. The findings also raise the possibility of aspiration. Dictated by: Andrade Livingston M.D. on 04/12/2017 at 13:22 CT ABDOMEN AND PELVIS WITHOUT CONTRAST IMPRESSION: 1. Segmental wall thickening of the sigmoid colon increased from the prior study consistent with a nonspecific colitis, infectious, inflammatory, or ischemic in etiology. An underlying mass is also not excluded. 2. Segmental wall thickening of the duodenum consistent with a nonspecific duodenitis, likely infectious or inflammatory. 3. Severe dilatation of the right renal collecting system redemonstrated likely due to a UPJ obstruction. 4. Concentric wall thickening of the bladder consistent with a nonspecific cystitis. Recommend correlation with urinalysis. Dictated by: Andrade Livingston M.D. on 04/15/2017 at 13:50 X-RAY CHEST ONE VIEW, PORTABLE IMPRESSION: Interval worsening of retrocardiac consolidation (potentially aspiration) since 04/11/17. Possible small layering left pleural effusion Chronic diffuse interstitial disease as before. Dictated by: Lamin Stack M.D. on 04/17/2017 at 9:19 Assessment & Plan Caitie Monet is an 86 year old woman with past medical history significant for hypertension, breast cancer in remission, hyperlipidemia, and diverticular disease who presented to [facility] from [facility] due to hyperkalemia and acute kidney injury. The patient is currently under treatment for C. Difficile colitis, acute kidney injury and a UTI and chronic right hydronephrosis and acute GI bleed. Hospital day #10 Acute injury kidney injury secondary to dehydration secondary to C. difficile colitis in a patient with CKD with a chronic right UPJ, present on admission, active. Improving. -Nephrology consulted, appreciate recommendations and expertise. We will follow. -Stopped IVF as patient became very edematous and is moving into hypervolemic hypernatremia. She does have TBW deficit. Encourage PO intake and continue to monitor. -Urology consulted for right hydronephrosis and probable UPJ obstruction. Upon review of past abdominal U/S patient was noted to have hydronephrosis about one year ago. -Renal functions remain elevated but downward trending. -D/C Altamirano catheter C. difficile colitis, present on admission, active. -PO vancomycin through April 25 for 2 weeks of treatment. -Completed 8 days of IV Flagyl -CT showing diverticulitis as well. -Infectious disease consulted. We will follow recommendations. -Dr. Harris to order Zinplava Urinary tract infection in a patient with a history of recurrent UTIs, present on admission, active -Patient noted to have a very dirty urine and has bladder retention as well, may be due to cross-contamination from diarrhea with stasis -Repeat UA with culture obtained with no growth -Zosyn: completed 7 days. Infectious disease consulted. Anion gap metabolic acidosis, not present on admission, resolved -Pure HAGMA. -Will check lactic acid Possible aspiration, present on admission, active -Speech therapy evaluation completed -Barium swallow today Acute upper GI bleed in the setting of C. Diff colitis and diverticulitis in a uremic patient with a component of chronic anemia from CKD, not present on admission, resolved -S/P 8 units of PRBCs and one unit of FFP as well. DDAV x2. -The patient put out approximately 1700 cc of maroon stool overnight on 04/15 and again had bloody stools overnight on 04/16, this has resolved. -CT of abdomen/pelvis with PO contrast demonstrated worsening colitis -GI consulted, EGD revealed a duodenal ulcer s/p cauterization. On Protonix PO BID per GI. Diet advanced per speech. -Will continue to monitor closely, hemodynamically stable. Possible toxic encephalopathy with asterixis, present on admission, resolved -Likely due to uremia -No history of cirrhosis noted per patient's report. CT of abdomen does not reveal a cirrhotic appearing liver. -Ammonia was elevate -We will continue to monitor mentation Hyperkalemia, present on admission, resolved. Hypertension, chronic, active -Will restart HCTZ, hold lisinopril -May consider adding on labetalol if blood pressure increases Hypocalcemia, secondary to multiple PRBC transfusions, resolved. -Continue to replace. Disposition: The patient will likely be in the hospital for 1 more day as her evaluation is completed. VTE Prophylaxis: Sub-Q Heparin (Unfractionated) VTE Mechanical Devices: Intermittant Pneumatic CD Resuscitation Status: CPR: Attempt Resuscitation Attending Statement I interviewed and examined the patient on rounds today. I agree with the assessment and plan as stated above. Carmelina Lazcano DO April 20, 2017 13:01 Andrés Sparks MD April 20, 2017 17:33
--- NOTE | 2017-04-20 13:36 | NUR ---
NUTRITION FOLLOW-UP: Assess: 86 YO F admitted with C. diff colitis complicated by acute renal failure, UTI, and dehydration. Diet advanced to general. PO intake is poor/fair. PMHX: HTN, ischemic colitis, fracture femur, breast cancer, diverticulosis. DIET: Renal. PO intake: refusal-50%. LABS: Na 147, K+ 3.3, BUN 44, Cr 3.68, Glu 116, Ca 7.4 MEDICATIONS: Reviewed. Bacid GI: BM x 4 (04/19). C.diff positive. SKIN: No issues noted. ANTHROPOMETRICS: Wt: 67.4 kg, BMI 27.2 kg/m2, Admit wt: 58.3 kg. ESTIMATED NEEDS: ARF Calories: 3541-2617 kcal/day (25-35 kcal/kg BW) Protein: 35-47 g/day (0.6-0.8 g/kg BW) NUTRITION DIAGNOSIS: 1) Inadequate oral intake related to decreased ability to consume sufficient energy as evidenced by poor PO intake X 6 days.-SLIGHTLY IMPROVED. 2) Increased nutrient needs related to acute renal failure, as evidenced by possible requirement for hemodialysis.---PERSISTS. INTERVENTION: 1) Continue Suplena pre-renal supplement to current diet to encourage adequate nutrition. 2) Will adjust estimated needs if pt require dialysis. MONITOR/EVALUATE: PO intake, diet tolerance, dialysis, labs, GI/nutrition status. Follow per moderate nutrition risk guidelines.
--- NOTE | 2017-04-20 14:25 | DRSVH ---
PROCEDURE: X-RAY BARIUM SWALLOW WITH FOOD & VIDEOGRAPHY ([id number]) INDICATIONS: ?aspiration TECHNIQUE: Examination was conducted in conjunction with speech pathology per standard protocol. In the lateral projection, filming was performed of the patient swallowing. AP projection filming may also be performed with patient swallowing. COMPARISON: None. FINDINGS: Function: The oral preparatory phase appears normal, with proper containment. The subsequent oral pr opulsive phase, pharyngeal phase, and esophageal phase of swallowing also appear normal with all prof fered substances. No laryngotracheal penetration or aspiration. Mild vallecular pooling. The attend ing physician was personally present in the room during the examination. Morphology: No cricopharyngeal bar is identified. No cervical esophageal webs. No Zenker's diverti culum. No strictures. IMPRESSION: No laryngeal penetration or tracheobronchial aspiration. Dictated by: Corky Layton Brennon Interpreted: Carter Arias MD on 04/20/2017 at 14:24 Transcribed by: MATT on 04/20/2017 at 14:25 Approved by: Carter Arias M.D. on 04/20/2017 at 15:03
--- NOTE | 2017-04-20 15:25 | PCM.PNNEPH ---
Subjective Date of Service April 20, 2017 Subjective The patient's renal function continues to slowly improve. She had well- preserved 3 L of urine out yesterday. She denies any headache, chest pain, shortness of breath, cough, wheezing, nausea or vomiting. Her blood pressures range from 100 sodium 160. Intake and output last 24 hours were 2069 in and 30- 50 out. This morning her sodium is 147, potassium 3.8, chloride of 111, bicarbonate 20, BUN and creatinine were 44 and 3.68. Considerable improvement. Exam Vital Signs Vital Sign - Last Date Time Temp Pulse Resp B/P Pulse Ox O2 Delivery O2 Flow Rate FiO2 04/20/17 13:04 Room Air 04/20/17 12:26 36.3 99 18 139/79 95 04/18/17 10:08 1.00 Intake and Output 04/19/17 04/19/17 04/20/17 Cumulative From/Thru 15:00 23:00 07:00 04/11/17 17:35 - 04/20/17 04:55 Intake Total 836 ml 180 ml 68797 ml Output Total 1450 ml 1400 ml 85382 ml Balance -614 ml -1220 ml 17241 ml Intake Oral 540 ml 180 ml 7705 ml IV Total 296 ml 58318 ml TPN/PPN 493 ml Packed Cells 1826 ml FFP 305 ml Output Urine Total 1450 ml 1400 ml 81542 ml Stool Total 1700 ml # Bowel Movements 3 31 Exam HEENT examination is remarkable for pale sclera. Neck is supple without adenopathy, thyromegaly, or jugular venous distention. Lungs are clear to auscultation. Heart is regular and rhythmical with a soft systolic murmur. Abdomen is soft without any tenderness rebound guarding masses or hepatosplenomegaly. Extremities symmetrically evidence of any clubbing, cyanosis, or edema. Skin turgor is good. Lab and Diagnostics Result Diagram: 04/20/1772204/20/17722 X-Rays, CTs and MRIs US RENAL SONOGRAM IMPRESSION: Multiple mildly complex right renal cysts, some of which demonstrate internal septations. Recommend continued surveillance with renal ultrasound or CT. Given the absence of any relevant prior comparison studies, consider initial workup with CT (in the non-emergent setting). Large postvoid residual. Internal bladder echoes, presumably intraluminal debris. Renal cortical thinning/atrophy Dictated by: Lamin Stack M.D. on 04/11/2017 at 19:32 CT ABDOMEN AND PELVIS WITHOUT CONTRAST IMPRESSION: 1. Severe right hydronephrosis without hydroureter suggesting a UPJ obstruction. No radiopaque stones identified. 2. Concentric bladder wall thickening of a distended urinary bladder compatible with cystitis. Recommend correlation with urinalysis. 3. Diverticulosis without acute diverticulitis. 4. Small bilateral pleural effusions with bibasilar consolidation suspicious for pneumonia. The findings also raise the possibility of aspiration. Dictated by: Andrade Livingston M.D. on 04/12/2017 at 13:22 CT ABDOMEN AND PELVIS WITHOUT CONTRAST IMPRESSION: 1. Segmental wall thickening of the sigmoid colon increased from the prior study consistent with a nonspecific colitis, infectious, inflammatory, or ischemic in etiology. An underlying mass is also not excluded. 2. Segmental wall thickening of the duodenum consistent with a nonspecific duodenitis, likely infectious or inflammatory. 3. Severe dilatation of the right renal collecting system redemonstrated likely due to a UPJ obstruction. 4. Concentric wall thickening of the bladder consistent with a nonspecific cystitis. Recommend correlation with urinalysis. Dictated by: Andrade Livingston M.D. on 04/15/2017 at 13:50 X-RAY CHEST ONE VIEW, PORTABLE IMPRESSION: Interval worsening of retrocardiac consolidation (potentially aspiration) since 04/11/17. Possible small layering left pleural effusion Chronic diffuse interstitial disease as before. Dictated by: Lamin Stack M.D. on 04/17/2017 at 9:19 Plan Impression Impression #1 acute tubular necrosis which appears to be resolving #2 severe dehydration from C. 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 Papo White DO April 20, 2017 15:25
--- NOTE | 2017-04-20 16:12 | NUR ---
Social Work Note: Readiness for Discharge Data& Assessment: MING received order from for halfway placement. Per PT, pt requires SNF at time of discharge. MING spoke with pt son regarding discharge planning. Pt son explained that the preference is for pt to go directly to [facility] at [facility] as pt does not want to go to SNF and pt family is trying to avoid too many transitions for pt. MING spoke with [facility] digital account director at [facility] who confirmed again that they will be able to provide caregiving and daily PT and OT for pt. MING spoke with [facility] estate administrator from [facility] who confirmed that they will not need to do bedside assessment as pt does not require IV abx and they are aware of pt only being able to ambulate 1-2 ft with PT. SW to fax DC orders to [facility] at [facility] when medically ready. Pt family to transport pt privately. Pt family denies any other needs. No other discharge needs identified. Plan: Anticipated discharge to [facility] with daily PT, OT and caregiving to aid with ADL's. Pt family to transport pt privately. Pt family denies any other needs. No other discharge needs identified. NICHOL Vick
--- NOTE | 2017-04-20 17:35 | DRSVH ---
[facility] [address] [place] [address] Echocardiogram Report Name: LAURA SANABRIA Study Date: 04/20/2017 Height: 62 in Hospital Exam Location: [facility] Weight: 149 lb Gender: Female BSA: 1.7 m2 : 1930 Age: 86 yrs BP: 151/75 mmHg Reason For Study: Congestive Heart Failure Ordering Physician: HOSPITALIST [facility] Performed By: Franklin Graham Referring Physician: RK BARRIENTOS Interpretation Summary The left ventricle is normal in size. The ejection fraction is estimated to be 60-65%. The right ventricle is grossly normal size. The right ventricular systolic function is normal. There is mild to moderate mitral regurgitation. There is mild tricuspid regurgitation. The right ventricular systolic pressure is estimated at 35 mmHg assuming a right atrial pressure of 3 mm Hg. There is a moderate left-sided pleural effusion. Procedure: A two-dimensional transthoracic echocardiogram with color flow and Doppler was performed. The study quality was technically adequate. There is no prior echocardiogram noted for this patient. The patient was in normal sinus rhythm during the exam. The heart rate ranged between 88-95 bpm during the study. Left Ventricle: The left ventricle is normal in size. Proximal septal thickening is noted. There is no echo evidence for significant left ventricular outflow tract obstruction. There is no thrombus. The ejection fraction is estimated to be 60-65%. There is basal inferior wall hypokinesis. There is basal inferoseptal wall hypokinesis. Spectral Doppler of the mitral valve is reversed, with an E/A wave ratio < 1.0. Right Ventricle: The right ventricle is grossly normal size. The right ventricular systolic function is normal. Atria: The left atrium is borderline dilated. Right atrial size is normal. There is no Doppler evidence for an atrial septal defect. Mitral Valve: The mitral valve leaflets appear borderline thickened, but open well. The mitral valve leaflets are mildly calcified. There is mild mitral annular calcification. The mitral valve chordae are thickened and/or calcified. There is mild to moderate mitral regurgitation. Aortic Valve: The aortic valve is trileaflet. The aortic valve opens well. The aortic valve is mildly calcified. There is no aortic valve stenosis. There is trace aortic regurgitation. Tricuspid Valve: The tricuspid valve leaflets are thickened and/or calcified, but open well. There is mild tricuspid regurgitation. The right ventricular systolic pressure is estimated at 35 mmHg assuming a right atrial pressure of 3 mm Hg. Pulmonic Valve: The pulmonic valve is not well seen, but is grossly normal. There is no pulmonic valvular regurgitation. Great Vessels: The aortic root is normal size. The dimensions of the ascending aorta are normal. The pulmonary artery is normal size. The IVC is of normal diameter and collapses greater than 50% with a sniff. This suggests a low right atrial pressure of 3 mm Hg. Pericardium/ Pleura There is no pericardial effusion. There is a moderate left-sided pleural effusion. MMode/2D Measurements & Calculations LVIDd: 4.1 cm RA long axis LVOT diam LVIDs: 3.1 cm LA A2 area: 17.3 cm FS: 25.5 % LA A4 area: 15.9 cm RA area AoV Opening EPSS: 0.42 cm LA length (vol): 4.4 cm IVSd: 0.68 cm LA vol: 53.0 ml : 16.3 cm Ao root diam LVPWd: 0.64 cm LA vol index RA vol : 40.1 ml asc Aorta : 31.4 ml/m2 RA Diam: 3.2 cm : 23.8 mm2 LV crowley. diameter/BSA LV sys. diameter/BSA RVD1 (basal) RVD2 (mid) (cm/m^2): 2.5 (cm/m^2): 1.8 : 2.7 cm TAPSE: 3.3 cm Doppler Measurements & Calculations Ao V2 max MV E max dez MV E/A: 0.69 TR max dez : 157.6 cm/sec : 85.5 cm/sec Med Peak E' Dez : 280.5 cm/sec Ao max P.9 mmHg MV A max dez TR max PG Ao mean P.7 mmHg : 123.6 cm/sec E/E' med: 18.8 : 31.5 mmHg LVOT Max Dez MVA(VTI): 4.7 cm2 Lat Peak E' Dez PA V2 max : 114.5 cm/sec : 114.2 cm/sec HEAVEN(I,D): 2.2 cm E/E' lat: 9.9 PA mean PG sev ratio: 0.77 E/e' average : 2.4 mmHg MV V2 mean Ao V2 mean LV V1 max PG PA V2 mean : 77.0 cm/sec : 101.0 cm/sec : 72.2 cm/sec MV mean P.9 mmHg Ao V2 VTI: 30.4 cmLV V1 VTI PA pr(Accel) MV V2 VTI: 14.5 cm HEAVEN(V,D): 2.1 cm2 : 23.5 cm : 54.6 mmHg HEAVEN indexed to BSA (cm^2/m^2): 1.3 Reading Physician:PM
--- NOTE | 2017-04-20 19:25 | NUR ---
Activity/GI/ Pt up with PT today, walking around room with FWW. Pt very enthusiastic about increasing her activity levels today. Pt continues to have episodes of bowel incontinence, with 2 small bowel movements. Stool is dark greenish and loose.
--- NOTE | 2017-04-21 01:09 | NUR ---
Rest Patient resting in bed this shift, no c/o pain, no distress noted, calm and cooperative, up to commode and continent, restful shift,
[2017-04-21 03:52] VITALS: BP 147/73; PULSE 94; RESP 16; O2SAT 92
[2017-04-21 04:23] LABS: Magnesium 1.3 mg/dL (1.6-2.6); Phosphorus 3.2 mg/dL (2.5-4.9)
[2017-04-21] MEDS ORDERED: KCl 40 mEq/D5W 500 mL 40 MEQ in IV Premix 1 EACH IV ONE ×2 (06:00→06:50)
[2017-04-21] MEDS: Vancomycin 125 mg Oral Capsule PO SCH ×2 (06:00→11:44)
[2017-04-21 06:25] LABS: Mean Corpuscular Hemoglobin 28.6 pg (27.0-35.0); Mean Corpuscular Volume 86.8 fL (81-100); Platelet Count 368 bil/L (150-400)
[2017-04-21] MEDS ORDERED: Magnesium Sulf 4 Gm/100 mL H2O 4 GM in IV Premix 1 EACH IV ONE (06:50)
[2017-04-21 07:40] LABS: BASOPHILS % (AUTO) 0 % (0-3); EOSINOPHILS % (AUTO) 3 % (0-5); MONOCYTES % (AUTO) 8 % (4-12); NEUTROPHILS % (AUTO) 63 % (40-74)
--- NOTE | 2017-04-21 08:49 | PROG NOTE ---
[address] [address] PROGRESS NOTE PATIENT: LAURA SANABRIA : 1930 MR#: [id number] ADMIT: 04/11/2017 JOB ID: [id number] DATE: 04/21/2017 INFECTIOUS DISEASE FOLLOWUP NOTE: REASON FOR FOLLOWUP: Complicated UTI, severe C. difficile colitis and renal failure. INTERVAL HISTORY: The patient continues to gradually feel better. No fevers, chills, or sweats. No significant pulmonary symptoms. Her diarrhea is down to about two loose bowel movements a day. No significant abdominal pain. The patient notes she is increasingly active and can walk some around the room now and is spending most of her time in a chair during the daytime at least. PHYSICAL EXAMINATION: Reveals an afebrile woman. Temp 36.4, pulse 94, respiratory rate 16, blood pressure 147/73, saturating 92%. In no acute distress. Examination of the mental status reveals it to be completely clear. Oral cavity negative. Lungs clear. Cardiac tones: Regular rate and rhythm. Abdomen is essentially nontender at this point. Peripheral edema is diminishing as her renal failure receives. LABORATORIES: Today include white count 12.4, which has been relatively constant. Diff is essentially normal except for 1% metamyelocytes, otherwise normal. Creatinine 3.16. Recent LFT were normal. Last sets of blood cultures from the were negative. Echocardiogram: ejection fraction about 60% to 65%. Essentially normal study. IMPRESSION: This patient suffered life-threatening Clostridium difficile colitis in association with renal failure due to acute tubular necrosis. Both of these problems are rapidly receding as her renal infection improves significantly day by day, though today she has had some hypokalemia. Our Clostridium difficile has also largely resolved, and we finished a complete course of therapy for what we thought to be a complicated urinary tract infection but no urine was collected in a timely fashion, so we never knew the etiologic agent. Recall that this patient also still has a right-sided UPJ obstruction or stenosis which needs addressing in the future by Urology. RECOMMENDATIONS: 1. Will continue oral vancomycin through April 25 at the current dose of 125 q.i.d. 2. A single dose of Zinplava 700 mg will be given today. The only significant side effect of this therapy is decreased ejection fraction but we now know this patient starts off with a normal heart, so we are not concerned. 3. Infectious Disease will go ahead and sign off on this interesting patient. Thank you very much for allowing us to participate in her care.
[2017-04-21 09:00] VITALS: BP 156/75; PULSE 95; RESP 18; O2SAT 94
[2017-04-21] MEDS ORDERED: Potassium Chloride 20 mEq SR Tablet PO ONE ×2 (09:05→13:15)
[2017-04-21] MEDS: Heparin 5,000 Unit/mL Inj SUBQ SCH (09:19)
[2017-04-21] MEDS: Pantoprazole 40 mg ER24 Tablet PO SCH (09:20)
[2017-04-21] MEDS ORDERED: SODIUM CHLORIDE 0.9% IV ONE (09:30)
[2017-04-21] MEDS ORDERED: BEZLOTOXUMAB IV ONE (09:30)
--- NOTE | 2017-04-21 10:51 | PCM.PNNEPH ---
Subjective Date of Service April 21, 2017 Subjective Patient's renal function continues to improve. She has had no further diarrhea. She was tolerating her diet and denies any chest pain, shortness of breath, nausea or vomiting. Last 24-hour she said a 39 units 3 400 out. This morning her sodium is 135, potassium 2.7, chloride of 109, and bicarbonate 20. Her urine continues to decrease to 3.16 mg/dL today. Her magnesium is 1.3 and phosphorus is 3.2. Exam Vital Signs Vital Sign - Last Date Time Temp Pulse Resp B/P Pulse Ox O2 Delivery O2 Flow Rate FiO2 04/21/17 09:00 36.6 95 18 156/75 94 Room Air 04/18/17 10:08 1.00 Intake and Output 04/20/17 04/20/17 04/21/17 Cumulative From/Thru 15:00 23:00 07:00 04/11/17 17:35 - 04/21/17 06:11 Intake Total 659 ml 908 ml 28454 ml Output Total 2000 ml 1050 ml 51913 ml Balance -1341 ml -142 ml 9469 ml Intake Oral 520 ml 150 ml 8375 ml IV Total 139 ml 758 ml 02784 ml TPN/PPN 493 ml Packed Cells 1826 ml FFP 305 ml Output Urine Total 2000 ml 1050 ml 78182 ml Stool Total 1700 ml # Bowel Movements 2 0 33 Exam HEENT examination is remarkable L sclera and some mild bitemporal wasting. Neck is supple without adenopathy, thyromegaly, or jugular venous distention. Lungs are clear to auscultation. Heart is regular rhythmical with a soft systolic murmur. Abdomen is soft without any tenderness rebound guarding masses or hepatosplenomegaly. Extremities not showing any evidence of any clubbing, cyanosis, or edema. Skin turgor is diminished and there is no evidence of any rashes. Lab and Diagnostics Result Diagram: 04/21/17 0330 04/21/17 033 X-Rays, CTs and MRIs US RENAL SONOGRAM IMPRESSION: Multiple mildly complex right renal cysts, some of which demonstrate internal septations. Recommend continued surveillance with renal ultrasound or CT. Given the absence of any relevant prior comparison studies, consider initial workup with CT (in the non-emergent setting). Large postvoid residual. Internal bladder echoes, presumably intraluminal debris. Renal cortical thinning/atrophy Dictated by: Lamin Stack M.D. on 04/11/2017 at 19:32 CT ABDOMEN AND PELVIS WITHOUT CONTRAST IMPRESSION: 1. Severe right hydronephrosis without hydroureter suggesting a UPJ obstruction. No radiopaque stones identified. 2. Concentric bladder wall thickening of a distended urinary bladder compatible with cystitis. Recommend correlation with urinalysis. 3. Diverticulosis without acute diverticulitis. 4. Small bilateral pleural effusions with bibasilar consolidation suspicious for pneumonia. The findings also raise the possibility of aspiration. Dictated by: Andrade Livingston M.D. on 04/12/2017 at 13:22 CT ABDOMEN AND PELVIS WITHOUT CONTRAST IMPRESSION: 1. Segmental wall thickening of the sigmoid colon increased from the prior study consistent with a nonspecific colitis, infectious, inflammatory, or ischemic in etiology. An underlying mass is also not excluded. 2. Segmental wall thickening of the duodenum consistent with a nonspecific duodenitis, likely infectious or inflammatory. 3. Severe dilatation of the right renal collecting system redemonstrated likely due to a UPJ obstruction. 4. Concentric wall thickening of the bladder consistent with a nonspecific cystitis. Recommend correlation with urinalysis. Dictated by: Andrade Livingston M.D. on 04/15/2017 at 13:50 X-RAY CHEST ONE VIEW, PORTABLE IMPRESSION: Interval worsening of retrocardiac consolidation (potentially aspiration) since 04/11/17. Possible small layering left pleural effusion Chronic diffuse interstitial disease as before. Dictated by: Lamin Stack M.D. on 04/17/2017 at 9:19 Plan Impression Impression #1 acute tubular necrosis which is resolving #2 dehydration secondary to diuretic phase of acute kidney injury and C. difficile colitis which is resolving number right hydronephrosis #4 acute anemia #5 hypertension with hypertensive heart disease and hypertensive nephrosclerosis #6 hypernatremia #7 hypokalemia #8 hypomagnesemia. Recommendations #1 I will go ahead and replace her magnesium and potassium in the form of potassium chloride IV and those orders have been written. Also like to continue her on on maintenance IV fluid with half-normal saline and continue to monitor her intake, I will print, and all laboratory values. Papo White DO April 21, 2017 10:51
[2017-04-21 10:57] VITALS: PULSE 105
--- NOTE | 2017-04-21 11:33 | PCM.PNMED ---
Subjective Date of Service April 21, 2017 Subjective GI progress note Patient's H&H has been stable now for couple days. This morning hemoglobin was 8.9 down from 9.2 yesterday. Patient denies ongoing diarrhea but states her stools are soft and green, without hematochezia/melena. Patient denies abdominal pain, chest pain, fever, chills, dizziness, or epigastric pain. From a renal standpoint the patient seems to be doing much better as well with creatinine this morning of 3.16. patient tolerating diet Exam Vital Signs Vital Sign - Last Date Time Temp Pulse Resp B/P Pulse Ox O2 Delivery O2 Flow Rate FiO2 04/21/17 10:57 105 04/21/17 09:00 36.6 18 156/75 94 Room Air 04/18/17 10:08 1.00 Intake and Output 04/20/17 04/20/17 04/21/17 Cumulative From/Thru 15:00 23:00 07:00 04/11/17 17:35 - 04/21/17 06:11 Intake Total 659 ml 908 ml 77578 ml Output Total 2000 ml 1050 ml 79587 ml Balance -1341 ml -142 ml 9469 ml Intake Oral 520 ml 150 ml 8375 ml IV Total 139 ml 758 ml 42068 ml TPN/PPN 493 ml Packed Cells 1826 ml FFP 305 ml Output Urine Total 2000 ml 1050 ml 56767 ml Stool Total 1700 ml # Bowel Movements 2 0 33 Exam Gen.: No acute distress, alert and oriented Cardio: Regular rate and rhythm Respiratory: CTA bilaterally Abdomen: Soft, mild distention, no masses, normal bowel sounds Extremities: Improved edema, Refill less than 2 seconds Psych: Appropriate mood and affect IVs and Medications Medications Reviewed: Medications were reviewed in detail Lab and Diagnostics Result Diagram: 04/21/17 03304/21/17 0330 X-Rays, CTs and MRIs US RENAL SONOGRAM IMPRESSION: Multiple mildly complex right renal cysts, some of which demonstrate internal septations. Recommend continued surveillance with renal ultrasound or CT. Given the absence of any relevant prior comparison studies, consider initial workup with CT (in the non-emergent setting). Large postvoid residual. Internal bladder echoes, presumably intraluminal debris. Renal cortical thinning/atrophy Dictated by: Lamin Stack M.D. on 04/11/2017 at 19:32 CT ABDOMEN AND PELVIS WITHOUT CONTRAST IMPRESSION: 1. Severe right hydronephrosis without hydroureter suggesting a UPJ obstruction. No radiopaque stones identified. 2. Concentric bladder wall thickening of a distended urinary bladder compatible with cystitis. Recommend correlation with urinalysis. 3. Diverticulosis without acute diverticulitis. 4. Small bilateral pleural effusions with bibasilar consolidation suspicious for pneumonia. The findings also raise the possibility of aspiration. Dictated by: Andrade Livingston M.D. on 04/12/2017 at 13:22 CT ABDOMEN AND PELVIS WITHOUT CONTRAST IMPRESSION: 1. Segmental wall thickening of the sigmoid colon increased from the prior study consistent with a nonspecific colitis, infectious, inflammatory, or ischemic in etiology. An underlying mass is also not excluded. 2. Segmental wall thickening of the duodenum consistent with a nonspecific duodenitis, likely infectious or inflammatory. 3. Severe dilatation of the right renal collecting system redemonstrated likely due to a UPJ obstruction. 4. Concentric wall thickening of the bladder consistent with a nonspecific cystitis. Recommend correlation with urinalysis. Dictated by: Andrade Livingston M.D. on 04/15/2017 at 13:50 X-RAY CHEST ONE VIEW, PORTABLE IMPRESSION: Interval worsening of retrocardiac consolidation (potentially aspiration) since 04/11/17. Possible small layering left pleural effusion Chronic diffuse interstitial disease as before. Dictated by: Lamin Stack M.D. on 04/17/2017 at 9:19 Assessment & Plan Large Duodenal Ulcer s/p EPI and APC -H/H stable -no further reports of bleeding -Continue to advance diet -Protonix 40mg PO BID for 12 weeks, then daily thereafter -Still awaiting awaiting H pylori stool antigen; will treat if it returns positive -Follow up in GI clinic Clostridium Difficile colitis/diarrhea -Diarrhea resolving with soft stools reported -continue vancomycin per ID until April 25 -Patient given a single dose of Zimplava yesterday by ID -continue probiotics Acute Anemia -secondary to GI bleed with H&H now stable VTE Prophylaxis: Sub-Q Heparin (Unfractionated) VTE Mechanical Devices: Intermittant Pneumatic CD Resuscitation Status: CPR: Attempt Resuscitation Attending Statement pt seen and examined agree with Dr Ledezma's note no further bleeding Ernie Nathan DO April 21, 2017 11:33 Wayne Xie MD May 05, 2017 15:00
[2017-04-21] MEDS ORDERED: KCl 40 mEq/D5W 500 mL 40 MEQ in IV Premix 500 EACH IV ONE (12:35)
[2017-04-21] MEDS ORDERED: ZYL100 PO (12:38)
[2017-04-21] MEDS ORDERED: VANC125C3 PO (12:38)
[2017-04-21] MEDS ORDERED: PANT40TA3 PO (12:43)
--- NOTE | 2017-04-21 13:21 | PCM.DIMED ---
Carmelina Lazcano DO 04/21/17 1244: Discharge Instructions Date of Service April 21, 2017 Dates of Hospitalization April 11, 2017 at 15:20 Discharge Diagnosis Discharge Diagnosis Acute injury kidney injury secondary to dehydration secondary to C. difficile colitis in a patient with CKD with a chronic right UPJ, present on admission, active. Improving. C. difficile colitis, present on admission, active. Urinary tract infection in a patient with a history of recurrent UTIs, present on admission, active Anion gap metabolic acidosis, not present on admission, resolved Possible aspiration, present on admission, active Acute upper GI bleed in the setting of C. Diff colitis and diverticulitis in a uremic patient with a component of chronic anemia from CKD, not present on admission, resolved Possible toxic encephalopathy with asterixis, present on admission, resolved Hyperkalemia, present on admission, resolved. Hypertension, chronic, active Hypocalcemia, secondary to multiple PRBC transfusions, resolved. Medication Instructions Additional med instructions You will need to continue to take the by mouth antibiotic for urinary C. difficile colitis until April 25. [place] [facility] [place] 1 [place] of a medication that is intended to prevent recurrence of your C. difficile colitis. This medication is called Zinpala. Your lisinopril has been stopped due to the renal failure. Please discuss with at your follow-up appointment if you should restart it or not. You were started on a new blood pressure medication called Maxzide. Please take potassium supplements for the next week. Please have your potassium checked within 1 week. Diet Discharge Diet: No restrictions Activity Discharge Activity: Limited until seen by PCP Call your provider Call your provider for: Fever or Chills, Shortness of breath, Bleeding Patient Instructions Patient Instructions [place] [facility] [place] . Please follow-up with your primary care doctor in 1 week. Please follow-up with the administrative underwriter in 2-3 weeks. Please follow-up with the bulk gas specialist in 2-3 weeks. You were started on a PPI, which is a medication meant to reduce your stomach acid. You should take this medication twice a day for the next 12 weeks. At that time you may discuss stopping the medication with your primary care doctor and the bulk gas specialist. Follow-up plan Home health physical therapy every day for the next 2 weeks. Follow-up Provider: Ángel Vallecillo MD Follow-up with PCP in: 1 week Andrés Sparks MD 04/21/17 1719: Discharge Instructions Attending's Statement I interviewed and examined the patient on rounds today. I agree with the assessment and plan as stated above. Carmelina Lazcano DO April 21, 2017 12:44 Andrés Sparks MD April 21, 2017 17:19
[2017-04-21] MEDS ORDERED: POTA40LI2 PO (14:36)
[2017-04-21] MEDS ORDERED: TRIA1TAB2 PO (14:36)
--- NOTE | 2017-04-21 15:53 | NUR ---
Social Work Note: Discharge Data& Assessment: EMR reviewed. Per pt is medically ready for discharge. MING met with pt, pt son and pt daughter in law at bedside to confirm discharge plan and assess for any unmet needs. Caitie Monet is a 86 year old female admitted on 04/11/2017 for acute renal failure. Per pt is medically improved and ready to discharge to [facility] with daily PT and OT and usp care. MING confirmed with Cynthia from [facility] of pt room being ready for her this afternoon and the facility being able to accommodate pt needs. DC paperwork faxed to Director [facility]. Pt son to transport pt to [facility] this afternoon. KENDRA SANDERSON Sherri from [facility], Pt family and pt all updated and agreeable to plan. Pt and pt family denies any other needs. No other discharge needs identified. Plan: Per pt is medically improved and ready to discharge to [facility] with daily PT and OT and usp care. KENDRA SANDERSON Sherri from [facility], Pt family and pt all updated and agreeable to plan. Pt and pt family denies any other needs. No other discharge needs identified. NICHOL Vick
--- NOTE | 2017-04-21 16:44 | NUR ---
Discharge Patient hypokalemic this AM received 80mEq replacement this shift. Pt A&)x3, VSS, denies pain/discomfort. Plan is for patient to come back to [facility] as outpatient to receive Zinplava infusion. Discharge instruction and medication information printed and reviewed verbally with patient and her son. Patient left unit via wc with all personal belongings accompanied by her son and discharged to assisted living facility via private vehicle.
--- NOTE | 2017-04-21 16:50 | PCM.DC.MED ---
Discharge Summary Date of Service April 21, 2017 Dates of Hospitalization Date of Hospital Admission April 11, 2017 at 15:20 Date of Discharge: April 21, 2017 Providers: Admitting Physician: Bert Padilla MD Primary Care Physician: Ángel Vallecillo MD Attending Physician: Bert Padilla MD Diagnosis at Time of Discharge Diagnosis at Time of Discharge Acute injury kidney injury secondary to dehydration secondary to C. difficile colitis in a patient with CKD with a chronic right UPJ, present on admission, active. Improving. C. difficile colitis, present on admission, active. Urinary tract infection in a patient with a history of recurrent UTIs, present on admission, active Anion gap metabolic acidosis, not present on admission, resolved Possible aspiration, present on admission, active Acute upper GI bleed in the setting of C. Diff colitis and diverticulitis in a uremic patient with a component of chronic anemia from CKD, not present on admission, resolved Possible toxic encephalopathy with asterixis, present on admission, resolved Hyperkalemia, present on admission, resolved. Hypertension, chronic, active Hypocalcemia, secondary to multiple PRBC transfusions, resolved. Consultations Nephrology Infectious disease Gastroenterology Procedures XRay, CTs & MRIs US RENAL SONOGRAM IMPRESSION: Multiple mildly complex right renal cysts, some of which demonstrate internal septations. Recommend continued surveillance with renal ultrasound or CT. Given the absence of any relevant prior comparison studies, consider initial workup with CT (in the non-emergent setting). Large postvoid residual. Internal bladder echoes, presumably intraluminal debris. Renal cortical thinning/atrophy Dictated by: Lamin Stack M.D. on 04/11/2017 at 19:32 CT ABDOMEN AND PELVIS WITHOUT CONTRAST IMPRESSION: 1. Severe right hydronephrosis without hydroureter suggesting a UPJ obstruction. No radiopaque stones identified. 2. Concentric bladder wall thickening of a distended urinary bladder compatible with cystitis. Recommend correlation with urinalysis. 3. Diverticulosis without acute diverticulitis. 4. Small bilateral pleural effusions with bibasilar consolidation suspicious for pneumonia. The findings also raise the possibility of aspiration. Dictated by: Andrade Livingston M.D. on 04/12/2017 at 13:22 CT ABDOMEN AND PELVIS WITHOUT CONTRAST IMPRESSION: 1. Segmental wall thickening of the sigmoid colon increased from the prior study consistent with a nonspecific colitis, infectious, inflammatory, or ischemic in etiology. An underlying mass is also not excluded. 2. Segmental wall thickening of the duodenum consistent with a nonspecific duodenitis, likely infectious or inflammatory. 3. Severe dilatation of the right renal collecting system redemonstrated likely due to a UPJ obstruction. 4. Concentric wall thickening of the bladder consistent with a nonspecific cystitis. Recommend correlation with urinalysis. Dictated by: Andrade Livingston M.D. on 04/15/2017 at 13:50 X-RAY CHEST ONE VIEW, PORTABLE IMPRESSION: Interval worsening of retrocardiac consolidation (potentially aspiration) since 04/11/17. Possible small layering left pleural effusion Chronic diffuse interstitial disease as before. Dictated by: Lamin Stack M.D. on 04/17/2017 at 9:19 X-RAY BARIUM SWALLOW WITH FOOD & VIDEOGRAPHY IMPRESSION: No laryngeal penetration or tracheobronchial aspiration. Dictated by: Corky Layton [facility] Interpreted: Carter Arias MD on 04/20/2017 at 14:[address] Padilla's H&P: "86-year-old female with history of breast cancer, hypertension, and diverticular disease who presented [facility] from [place] due to hyperkalemia and acute kidney injury with a creatinine greater than 8, with ongoing consult from Dr. York of nephrology. Patient was diagnosed with diverticulitis likely secondary to ongoing C. difficile infection , diagnosed by PCR. The patient has had ongoing diarrhea without bleeding which lead to insertion of a FMS . Apparently, after a couple days the FMS came out and after reinsertion of the FMS later that day, the patient began having pramod bloody bowel movements. The blood is described by nursing as maroon with clots, with resulting bouts of hypotension. The patient has been transfused 4 units of PRBCs to stabilize her and this initially worked. However overnight the patient went from 10.7 down to 6.8. Blood was being transfused this morning. Patient denies any dizziness, lightheadedness, fever, nausea, chills, abdominal pain, chest pain, or shortness of breath. She denies using alcohol regularly and denies all use of NSAIDs. GI was consulted for colonoscopy. " Hospital Course Caitie Monet is an 86 year old woman with past medical history significant for hypertension, breast cancer in remission, hyperlipidemia, and diverticular disease who presented to [facility] from [facility] due to hyperkalemia and acute kidney injury. The patient is currently under treatment for C. Difficile colitis, acute kidney injury and a UTI and chronic right hydronephrosis and acute GI bleed. Hospital day #10 Acute injury kidney injury secondary to dehydration secondary to C. difficile colitis in a patient with CKD with a chronic right UPJ, present on admission, active. Resolved -Nephrology consulted -Urology consulted for right hydronephrosis and probable UPJ obstruction. Upon review of past abdominal U/S patient was noted to have hydronephrosis about one year ago. -Renal functions remain elevated but downward trending and approached her baseline creatinine -Outpatient follow-up with nephrology as recommended. C. difficile colitis, present on admission, active. -PO vancomycin through April 25 for 2 weeks of treatment. -Completed 8 days of IV Flagyl -Infectious disease consulted. We will follow recommendations. -Dr. Harris to order Zinplava for patient to return to [facility] for infusion in 2 days. Urinary tract infection in a patient with a history of recurrent UTIs, present on admission, resolved -Zosyn: completed 7 days. Infectious disease consulted. Anion gap metabolic acidosis, not present on admission, resolved Possible aspiration ruled out, present on admission, active -Barium swallow negative for aspiration Acute upper GI bleed in the setting of C. Diff colitis and diverticulitis in a uremic patient with a component of chronic anemia from CKD, not present on admission, resolved -S/P 8 units of PRBCs and one unit of FFP as well. DDAV x2. -CT of abdomen/pelvis with PO contrast demonstrated worsening colitis -GI consulted, EGD revealed a duodenal ulcer s/p cauterization. On Protonix PO BID per GI, to continue outpatient -Follow-up with GI in 2-3 weeks Possible toxic encephalopathy with asterixis, present on admission, resolved -Likely due to uremia Hypokalemia, not present on admission, resolved -Likely secondary to patient's HCTZ which was restarted. -Change medication to Maxzine with one week worth of potassium replacement. -Will need outpatient follow up and recheck. Hypertension, chronic, active -Restarted HCTZ, held lisinopril. Hypocalcemia, secondary to multiple PRBC transfusions, resolved. -Continued to replace. Patient was deemed stable for discharge with stable vital signs, stable hemoglobin, improved creatinine, improvement of electrolytes. Exam Vital Signs (Last) Date Time Temp Pulse Resp B/P Pulse Ox O2 Delivery O2 Flow Rate FiO2 04/21/17 14:43 Room Air 04/21/17 10:57 105 04/21/17 09:00 36.6 18 156/75 94 04/18/17 10:08 1.00 Exam General: No acute distress, thin elderly female sitting up in hospital. Forgetful but alert and oriented. HEENT: Normocephalic, atraumatic. External ears without defect. Pupils equal, round, and reactive to light and accommodation. Anicteric sclerae, moist conjunctivae, and no lid lag. Oropharynx free of erythema and cobble stoning with moist mucosa. Neck: Supple with full range of motion. No jugular venous distension. No lymphadenopathy or thyromegaly. Cardiovascular: Regular rate and rhythm with soft systolic murmur and occasional ectopic beats. Pulmonary: Clear to auscultation bilaterally. Normal respiratory effort with no use of accessory muscles. Abdomen: Soft, mildly distended. No hepatosplenomegaly or masses appreciated. No tenderness to palpation. Hyperactive bowel sounds. Small ventral hernia noted with coughing. : [place] in place. Draining yellow urine. Extremities: No clubbing, cyanosis, or lymphadenopathy appreciated. Half-and- half nails noted. Pitting edema of lower extremities noted, improved since yesterday. Skin: Normal temperature, turgor, and texture; no rash, ulcers, or subcutaneous nodules appreciated. Neurological: Cranial nerves grossly intact. Normal muscle strength, tone, and bulk. Psychiatric: Normal mood and affect. Alert and oriented to person, place, and time. Test 04/11/17 17:00 04/12/17 02:55 04/13/17 02:25 04/14/17 02:25 Norovirus 1 (PCR) Negative (Negative) Norovirus 2 (PCR) Negative (Negative) Uric Acid 11.7mg/dL (2.6-7.2) Iron Level 17ug/dL (35-150) Total Iron Binding Capacity 134ug/dL (250-450) Percent Iron Saturation 13%sat (15-50) Unsaturated Iron Binding 116.9ug/dL Ammonia 65ug/dL (18-53) Procalcitonin 2.72ng/mL (0.00-0.08) Prothrombin Time 11.9sec (8.1-12.5) Prothromb Time International Ratio 1.11ratio Activated Partial Thromboplast Time 37.2sec (22.8-33.0) Osmolality 308 (275-300) Ionized Calcium (Calculated) 3.33mg/dL (3.5-5.2) Ferritin 534ng/mL (13-150) Myelocytes % 1% (0-0) Test 04/14/17 08:22 04/19/17 02:30 04/19/17 09:54 04/21/17 03:30 Urine Color Straw (YELLOW) Urine Appearance Turbid (CLEAR,HAZY) Urine pH 5.5 (5.0-8.0) Urine Specific [place] 1.015 (1.003-1.035) Urine Protein 100mg/dL (NEG,TRACE) Urine Glucose (UA) Negativemg/dL (NEGATIVE) Urine Ketones Tracemg/dL (NEGATIVE) Urine Occult Blood Large (NEGATIVE) Urine Nitrite Negative (NEGATIVE) Urine Bilirubin Negative (NEGATIVE) Urine Urobilinogen Normalmg/dL (NORMAL) Urine Leukocyte Esterase Moderate (NEGATIVE) Urine RBC 3-10/hpf (0-2) Urine WBC Packed/hpf (0-5) Urine Epithelial Cells Occasional/hpf (NONE-MOD) Urine Crystals None seen (NONE SEEN) Urine Bacteria Moderate/hpf (NONE-FEW) Urine Hyaline Casts None/lpf (NONE) Urine Granular Casts None seen (NONE SEEN) Urine Waxy Casts None seen (NONE SEEN) Urine Red Blood Cell Casts None seen (NONE SEEN) Urine White Blood Cell Casts None seen (NONE SEEN) Urine Mucus None seen (None Seen) Urine Trichomonas None seen (NONE SEEN) Urine Yeast None (NONE SEEN) Urinalysis Comment None Urine Culture Reflexed Indicated Total Bilirubin 0.3mg/dL (0.0-1.2) Aspartate Amino Transf (AST/SGOT) 17U/L (0-50) Alanine Aminotransferase (ALT/SGPT) 20U/L (0-32) Alkaline Phosphatase 54U/L (25-165) Total Protein 4.5g/dL (6.4-8.4) Albumin 2.0g/dL (3.4-5.0) Lactic Acid Level 0.7mmol/L (0.4-2.0) White Blood Count 12.4th/mm3 (3.8-10.1) Red Blood Count 3.11mil/mm3 (3.90-5.20) Hemoglobin 8.9g/dL (12.0-15.6) Hematocrit 27.0% (35.0-46.0) Mean Corpuscular Volume 86.8fL (81-100) Mean Corpuscular Hemoglobin 28.6pg (27.0-35.0) Mean Corpuscular Hemoglobin Concent 33.0% (32.0-37.0) Red Cell Distribution Width 16.0% (12.3-15.4) Platelet Count 368bil/L (150-400) Neutrophils (%) (Auto) 63% (40-74) Lymphocytes (%) (Auto) 23% (14-46) Monocytes (%) (Auto) 8% (4-12) Eosinophils (%) (Auto) 3% (0-5) Basophils (%) (Auto) 0% (0-3) Band Neutrophils % 2% (1-5) Metamyelocytes % 1% (0-0) Phosphorus Level 3.2mg/dL (2.5-4.9) Magnesium Level 1.3mg/dL (1.6-2.6) Test 04/21/17 15:47 Sodium Level 140mEq/L (134-144) Potassium Level 3.5mEq/L (3.5-5.2) Chloride Level 106mEq/L (97-108) Carbon Dioxide Level 18mmol/L (18-29) Blood Urea Nitrogen 27mg/dL (8-27) Creatinine 2.66mg/dL (0.57-1.00) Estimat Glomerular Filtration Rate 24mL/min (>59) Glucose Level 174mg/dL (60-99) Calcium Level 7.5mg/dL (8.5-10.1) Discharge Medications Discharge Medications Allopurinol (Allopurinol) 100 Mg Tablet 100 MG PO DAILY Prescribed by: DO Rubi PADILLA Calcium (Vitamin C) 500 Mg Tablet 500 MG PO DAILY (Reported) Aspirin (Aspirin) 81 Mg Tablet 81 MG PO DAILY (Reported) Cholecalciferol (Vitamin D3) (Vitamin D3) 2,000 Unit Capsule 2,000 UNIT PO DAILY (Reported) Ferrous Sulfate, Dried (Iron) 159 Mg Tablet.er 65 MG PO DAILY (Reported) Gabapentin (Gabapentin) 100 Mg Capsule 100 MG PO DAILY (Reported) Lactobacillus Acidophilus (Acidophilus) 1 Each Tablet 1 EACH PO DAILY (Reported ) Mv,Ca,Min/Iron Fum/FA/Vit K (Multi For Her Tablet) 1 Each Tablet 1 EACH PO DAILY (Reported) Pantoprazole DR (Pantoprazole DR) 40 Mg Tablet.dr 40 MG PO BIDAC Prescribed by: ROSITA GONZALEZ DO Potassium Chloride (Potassium Chloride) 40 Meq/15 Ml Liquid 40 MEQ PO DAILY Prescribed by: ROSITA GONZALEZ DO Psyllium Husk (Metamucil) 0.4 Gram Capsule 3 CAPSULE PO HS (Reported) Triamterene/Hydrochlorothiazid (Maxzide 37.5 mg-25 mg Tablet) 1 Each Tablet 1 EACH PO DAILY Prescribed by: ROSITA GONZALEZ DO Vancomycin (Vancomycin) 125 Mg Capsule 125 MG PO Q6H Prescribed by: ROSITA GONZALEZ DO Additional med instructions You will need to continue to take the by mouth antibiotic for urinary C. difficile colitis until April 25. You will need to come to the [facility] for a 1 time infusion of a medication that is intended to prevent recurrence of your C. difficile colitis. This medication is called Zinpala. Your lisinopril has been stopped due to the renal failure. Please discuss with at your follow-up appointment if you should restart it or not. You were started on a new blood pressure medication called Maxzide. Please take potassium supplements for the next week. Please have your potassium checked within 1 week. Followup Plan Follow-up plan Home health physical therapy every day for the next 2 weeks. Discharge Diet: No restrictions Discharge Activity: Limited until seen by PCP Patient Instructions Please return to the [facility] for your infusion on . Please follow-up with your primary care doctor in 1 week. Please follow-up with the hide washer in 2-3 weeks. Please follow-up with the director outpatient services in 2-3 weeks. You were started on a PPI, which is a medication meant to reduce your stomach acid. You should take this medication twice a day for the next 12 weeks. At that time you may discuss stopping the medication with your primary care doctor and the director outpatient services. Follow-up Provider: Ángel Vallecillo MD Follow-up with PCP in: 1 week Time spent 35 minutes Attending Statement I interviewed and examined the patient on rounds today. I agree that she is ready for discharge. I agree with the assessment and plan as stated above. copies to: Ángel Vallecillo MD, Viktoriya DO April 21, 2017 16:50 Andrés Sparks MD April 21, 2017 17:19
== END 2017-04-21 16:23 | disposition home or self-care (01) | DRG 682 ==
LOC: MPC 15:20 → PCC 23:10 → SOU 04-13 08:41 → PCC 04-13 08:45
PROVIDERS: ADMIT Hospitalist; ATTEND Hospitalist
PROC: 30233N1 Transfusion of Nonautologous Red Blood Cells into Peripheral Vein, Percutaneous Approach (ICD-10-PCS; 2017-04-15)
PROC: 30233N1 Transfusion of Nonautologous Red Blood Cells into Peripheral Vein, Percutaneous Approach (ICD-10-PCS; 2017-04-15)
PROC: 30233K1 Transfusion of Nonautologous Frozen Plasma into Peripheral Vein, Percutaneous Approach (ICD-10-PCS; 2017-04-16)
PROC: 0W3P8ZZ Control Bleeding in Gastrointestinal Tract, Via Natural or Artificial Opening Endoscopic (ICD-10-PCS; principal; 2017-04-16 17:45)
PROC: 0DJD8ZZ Inspection of Lower Intestinal Tract, Via Natural or Artificial Opening Endoscopic (ICD-10-PCS; 2017-04-16 17:45)
DX: N17.0 Acute kidney failure with tubular necrosis (principal); G92 Toxic encephalopathy; K26.4 Chronic or unspecified duodenal ulcer with hemorrhage; E87.2 Acidosis; A04.7 Enterocolitis due to Clostridium difficile; N39.0 Urinary tract infection, site not specified; E87.1 Hypo-osmolality and hyponatremia; D62 Acute posthemorrhagic anemia; R19.7 Diarrhea, unspecified; Z85.3 Personal history of malignant neoplasm of breast; Z92.3 Personal history of irradiation; E86.0 Dehydration; E87.5 Hyperkalemia; I13.10 Hypertensive heart and chronic kidney disease without heart failure, with stage 1 through stage 4 chronic kidney disease, or unspecified chronic kidney disease; N18.9 Chronic kidney disease, unspecified; R33.9 Retention of urine, unspecified; E78.5 Hyperlipidemia, unspecified; R27.8 Other lack of coordination; D63.1 Anemia in chronic kidney disease; N13.6 Pyonephrosis; N95.2 Postmenopausal atrophic vaginitis; E83.51 Hypocalcemia; K57.30 Diverticulosis of large intestine without perforation or abscess without bleeding

== ENCOUNTER 2017-04-27 14:02 | Day surgery (SDC) | payer MEDICARE ==
--- NOTE | 2017-04-23 10:34 | NUR ---
MD and pt communication drug currently not available per pharmacy, to be delivered 04/[address] Harris; pt to be rescheduled for next available communication with pt; rescheduled for friday 04/27 at 1200
[~2017-04-27] VITALS: Ht 157.5 cm; Wt 59.5 kg
[2017-04-27 13:10] VITALS: BP 121/65; PULSE 78; RESP 16; O2SAT 95
[~2017-04-27 14:02] MED LIST: ASCO-294 PO; ASPI-973 PO; CHOL200047 PO; FERR159T2 PO; FOLI1TAB50 PO; GABA-500 PO; LACT1TAB19 PO; PANT40TA3 PO; POTA40LI2 PO; PSYL0.4C2 PO; TRIA1TAB2 PO; VANC125C3 PO; ZYL100 PO; [UNRECOGNIZED DRUG - OTHER] IV ONE
--- NOTE | 2017-04-27 14:44 | NUR ---
Dee Patient arrived to unit with walker and family. Reviewed carenotes for medications and reportable side effects. Tolerated infusion without adverse reaction. Left unit with walker and belongings.
== END 2017-04-27 23:59 | disposition home or self-care (01) ==
LOC: MOCO 14:02
PROVIDERS: ATTEND Internal Medicine Infectious Disease
DX: A04.7 Enterocolitis due to Clostridium difficile (principal)
CPT/HCPCS: 96365; J3590